=== PATIENT | female | born 1950 | race Caucasian/White ===

== ENCOUNTER 2023-10-27 06:24 | Inpatient (IN) | payer MEDICARE, SELFPAY ==
--- NOTE | 2023-07-05 09:56 | CM ---
Addendum entered by Mely Nunez 09/22/23 12:30:
Surgery date has again changed. New surgery date is 10/27/23. Spoke with patient via telephone. Reintroduced role of Orthopedic Navigator and confirmed information previously obtained for case management assessment. Also discussed orthopedic program
and post surgical plans. Reviewed anticipated length of stay and that goal is for her to return home at discharge. Also reviewed outpatient PT. Patient is in agreement with tentative plan and will go directly to outpatient PT at [facility]. She
states that her will be home with her and can assist her if needed.
Addendum entered by Mely Nunez 09/07/23 06:24:
Surgery date has now been changed to 09/22/23.
Addendum entered by Mely Nunez 08/12/23 11:49:
Patient's surgery date has been changed to 09/08/23.
Original Note:
Patient is scheduled for an elective L TKR on 08/04/23. Spoke with patient prior to surgery via telephone. Introduced role of Orthopedic Navigator. Patient reports that she lives with her in a two story home. There are no steps to enter and
a flight of steps to the second floor. There is a powder room on the entry level installation technician. She currently functions independently. She has an old cane. She has had VN services. PCP is Dr. Eliel Nixon.
Discussed orthopedic program and post surgical plans. Reviewed anticipated length of stay and that goal is for her to return home at discharge. Also reviewed outpatient PT. Patient is in agreement with tentative plan and will go directly to
outpatient PT at [facility]. She will have support from her when she goes home.
Patient will complete online education.
Plan: Orthopedic Navigator will remain available to assist with the care of patient and will reassess discharge needs after surgery.
[2023-07-14 10:52] VITALS: BMI 37.0
[2023-07-14 10:54] LABS: Hematocrit 41.9 % (37.0-47.0); Hemoglobin 12.6 g/dL (12.0-16.0); Mean Corp Hgb Conc. 30.1 g/dL (33.0-37.0); Mean Corpuscular Volume 76.6 fL (81.0-99.0); Platelet Count 266 10^3/uL (130-400); Red Blood Cell Count 5.47 10^6/uL (4.20-5.40); Red Cell Dist. Width 15.6 % (11.5-14.5); White Blood Cell Count 7.4 10^3/uL (4.8-10.8)
[2023-07-14 11:05] LABS: ALT (SGPT) 16 U/L (0-35); AST (SGOT) 20 U/L (14-36); Albumin 4.4 g/dl (3.5-5.0); Alkaline Phosphatase 67 U/L (38-126); Blood Urea Nitrogen 21 mg/dl (7-17); Calcium 9.4 mg/dl (8.4-10.2); Carbon Dioxide 26 mmol/L (22-30); Chloride 106 mmol/L (98-107); Estimated Creatinine Clearance 74 ml/min; Glomerular Filtration Rate > 60.0; Glucose 209 mg/dl (70-99); Potassium 4.2 mmol/L (3.5-5.1); Sodium 143 mmol/L (135-145); Total Bilirubin 0.6 mg/dl (0.2-1.3); Total Protein 7.4 g/dl (6.3-8.2)
[2023-07-14 12:35] LABS: Glycohemoglobin (HgbA1c) 8.1 % (4.0-5.6)
[2023-07-14 14:30] VITALS: BMI 37.0
[2023-08-18 10:24] VITALS: BMI 36.4
[2023-08-18 10:50] LABS: Hematocrit 43.7 % (37.0-47.0); Hemoglobin 13.3 g/dL (12.0-16.0); Mean Corp Hgb Conc. 30.4 g/dL (33.0-37.0); Mean Corpuscular Hgb 23.1 pg (27.0-31.0); Mean Platelet Volume 11.8 fL (7.4-10.4); Platelet Count 252 10^3/uL (130-400); Red Blood Cell Count 5.75 10^6/uL (4.20-5.40); Red Cell Dist. Width 15.5 % (11.5-14.5); White Blood Cell Count 6.9 10^3/uL (4.8-10.8)
[2023-08-18 11:01] LABS: ALT (SGPT) 19 U/L (0-35); AST (SGOT) 20 U/L (14-36); Albumin 4.5 g/dl (3.5-5.0); Alkaline Phosphatase 67 U/L (38-126); Blood Urea Nitrogen 15 mg/dl (7-17); Calcium 9.5 mg/dl (8.4-10.2); Carbon Dioxide 25 mmol/L (22-30); Chloride 101 mmol/L (98-107); Estimated Creatinine Clearance 83 ml/min; Glucose 117 mg/dl (70-99); Potassium 4.5 mmol/L (3.5-5.1); Sodium 135 mmol/L (135-145); Total Bilirubin 1.1 mg/dl (0.2-1.3); Total Protein 7.4 g/dl (6.3-8.2); eGFR > 60.00
--- NOTE | 2023-08-18 11:44 | HPS.HSE ---
Family Physician
-
Family Physician: Eliel Nixon MD
Chief Complaint
-
Advanced primary osteoarthritis of the left knee.
History of Present Illness
73 yo female presenting today for advanced primary osteoarthritis of the left
knee. The patient reports significant left knee pain secondary to this
diagnosis. She notes that her current left knee pain is greatly interfering
with her activities of daily living and is overall impacting her quality of
life. She has tried and failed multiple conservative treatment measures
in the past for her left knee pain. These conservative treatment
measures include self therapeutic exercises, activity modification,
attempted weight loss, medical management with Tylenol, injection
therapy, bracing, and the application of ice and/or heat. Recent x-ray
findings of the left knee demonstrated advanced patellofemoral
osteoarthritis that is essentially bone on bone. She was determined to
be in need of a left total knee arthroplasty. She denies any current
complaints today such as chest pain, shortness of breath, palpitations,
nausea, vomiting, diarrhea, lightheadedness, dizziness, cough, sore
throat, or fever.
�
Medical History
Past Medical History
Past Medical History: Reports Other (see below)
Additional Past Medical History:
1. Osteoarthritis.
2. Hypertension.
3. Hyperlipidemia.
4. Aortic stenosis, status post TAVR 03/2023.
5. Obstructive sleep apnea, noncompliant with CPAP and improving
� � with recent weight loss.
6. Non insulin-dependent diabetes with neuropathy.
7. CAD, mild-moderate RCA and diagonal stenosis on cath 2022, non obstructive.
8. 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
9. Thalassemia minor.
10. Chronic constipation.
11. Migraines.
12. Overactive bladder.
13. Urinary incontinence.
14. Obesity, BMI 37.0.
�
Past Surgical History: Reports Other (see below)
Additional Past Surgical History:
1. TAVR.
2. Right bunionectomy.
3. D&C x2.
4. Uterine artery embolization.
5. Rhinoplasty.
6. Recurrent right detached retina repairs.
7. Bilateral cataract extraction.
8. Colonoscopy.
Social History
Tobacco: Non-smoker
Alcohol: Occasional
Family History
Family History: Not pertinent
Allergies / Home Medications
Allergies reflects when Allergies were last updated in gumi.
Home Medications with original date entered in gumi
Allergy/Medication List:
MEDICATIONS:
1. Acetaminophen 1000 mg p.o. every 8 hours as needed.
2. Ascorbic Acid 1000 mg p.o. daily.
3. Aspirin 81 mg p.o. daily.
4. Atorvastatin 10 mg p.o. every evening.
5. Jardiance 25 mg p.o. daily.
6. Glipizide 5 mg p.o. daily.
7. Losartan 25 mg p.o. daily.
8. Metoprolol Tartrate 50 mg p.o. twice a day.
9. Xarelto 20 mg p.o. every evening.
10. Ozempic 1 mg subcu on Wednesdays.
�
ALLERGIES:� No known allergies.
�
.
Review of Systems
-
A 12 point ROS was completed and negative except as noted: Yes
Constitutional: Reports No Symptoms
Physical Exam
Physical Exam
General: Well Developed and Well Nourished
HEENT: NormoCephalic and Anicteric
Respiratory: Clear
Cardiac: S1/S2 and Regular Rhythm
GI: Soft, Non Tender and Normal Bowel Sounds
Musculoskeletal: Other (Left knee has varus alignment. Positive warmth. Positive effusion. Positive crepitus. Range of motion 0-120. Right knee has neutral alignment but also warmth, crepitus, and range of motion of 0-120. )
Neuro: Awake, Alert, AO x 3, Cranial Nerves Intact and DTR's Intact & Symmetrical
Laboratory Results
-
08/18/23 10:06
08/18/23 10:06
Laboratory Results
Total Bilirubin 1.1 mg/dl (0.2-1.3) 08/18/23 10:06
AST 20 U/L (14-36) 08/18/23 10:06
ALT 19 U/L (0-35) 08/18/23 10:06
Alkaline Phosphatase 67 U/L (38-126) 08/18/23 10:06
Impression/Plan
-
CLEARANCES:
1. Cardiology, Dr. Eliel Nixon - cleared.
2. Primary Medical and dental - waived.
�
IMPRESSION/PLAN:
1. Advanced primary osteoarthritis of the left knee in need of a
� � left total knee arthroplasty by Dr. Omer Forte on
� � 08/04/2023. The benefits and risks of the procedure have been
� � explained to the patient. The patient understands these risks
� � and wishes to proceed.
2. DVT prophylaxis: Xarelto at modified dosing with bilateral
� � venous compression devices.
� � We will resume her home dosing of Xarelto on post-operative day 3
� � as long as she remains hemodynamically stable. Plasma flow
� � devices were highly encouraged to be used in the outpatient
� � setting upon discharge.
3. Chronic constipation: We will add nightly Milk of Magnesia to a
� � bowel regimen of Colace and Senokot post-surgery.
4. Elevated BMI and hro-tdbnyql-lwnqviqna diabetes: Due to these
� � diagnoses, the patient is considered to be at an increased risk
� � of post-operative infection. Upon discharge we will prescribe
� � Cefadroxil 500 mg p.o. twice a day for one week post-surgery.
� � Probiotic use we highly encourage while on this antibiotic.
[2023-08-18 12:31] LABS: Glycohemoglobin (HgbA1c) 7.5 % (4.0-5.6)
[2023-08-18 14:36] VITALS: BMI 36.4
[2023-10-07 09:26] VITALS: BMI 36.9
--- NOTE | 2023-10-07 10:36 | HPS.HSE ---
Family Physician
-
Family Physician: Eliel Nixon MD
Chief Complaint
-
Advanced primary osteoarthritis of the left knee.
History of Present Illness
The patient is a 73-year-old female presenting today for advanced primary osteoarthritis of the left knee. The patient reports significant left knee pain secondary to this diagnosis. She notes that her current left knee pain is greatly
interfering with her activities of daily living and is overall impacting her quality of life. She has tried and failed multiple conservative treatment measures in the past for her left knee pain. These conservative treatment measures include self
therapeutic exercises, activity modification, attempted weight loss, medical management with Tylenol, injection therapy, bracing, and the application of ice and/or heat. Recent x-ray findings of the left knee demonstrated advanced patellofemoral
osteoarthritis that is essentially bone on bone. She was determined to be in need of a left total knee arthroplasty. She denies any current complaints today such as chest pain, shortness of breath, palpitations, nausea, vomiting, diarrhea,
lightheadedness, dizziness, cough, sore throat, or fever.
Medical History
Past Medical History
Past Medical History: Reports Other
Additional Past Medical History:
1. Osteoarthritis.
2. Hypertension.
3. Hyperlipidemia.
4. Non-obstructive coronary artery disease of RCA and diagonal on cardiac cath 2022.
5. Paroxysmal atrial fibrillation, pharmacological therapy with Metoprolol, oral anticoagulation with Xarelto.
6. Left bundle branch block.
7. Severe aortic stenosis, status post TAVR 03/2023.
8. Moderate mitral stenosis.
9. Obstructive sleep apnea, noncompliant with CPAP but improving with recent weight loss.
10. Non insulin-dependent diabetes with neuropathy, A1c 7.4.
11. Migraines.
12. 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
13.�Thalassemia minor.
14. Overactive bladder.
15. Urinary incontinence.
16. Recent tinea pedis and bilateral foot MSSA, resolved with treatment per Dermatology.
17. Obesity, BMI 36.9.
18. Remote history of infrequent tobacco abuse.
Past Surgical History: Reports Other
Additional Past Surgical History:
1. TAVR.
2. Cardiac catheterization.
3. Right bunionectomy.
4. D&C x2.
5. Uterine artery embolization.
6. Rhinoplasty.
7. Recurrent right detached retina repairs.
8. Bilateral cataract extraction.
9. Colonoscopy.
Social History
Tobacco: Former Smoker (She reports 'social' cigarette smoking over 30 years ago. )
Alcohol: Other (Rare. )
Personal:
Living: Other (She lives with her in 2 halfway, 6,000 square foot home. )
Family History
Family History: Not pertinent
Allergies / Home Medications
Allergy/Medication List:
Home medications:
1. Aspirin 81 mg p.o. daily.
2. Jardiance 25 mg p.o. daily.
3. Glipizide 10 mg p.o. daily.
4. Losartan 25 mg p.o. daily.
5. Metoprolol Tartrate 50 mg p.o. twice a day.
6. Xarelto 20 mg p.o. every evening.
7. Ozempic 1 mg subcu on Wednesdays.
8. Ketoconazole 2% cream 1 application topical to bilateral feet nightly.
�
Allergies: No known allergies.
Review of Systems
-
A 12 point ROS was completed and negative except as noted: Yes
Physical Exam
Vital Signs
Blood pressure 117/87. Heart rate 66. Respirations 18. Pulse ox 96% on room air.
Height 5 feet, 6 inches. Weight 103.6 kg. BMI 36.9.
Physical Exam
General: Well Developed, Well Nourished and No Apparent Distress
HEENT: NormoCephalic, Moist mucous membranes, Atraumatic and Other (Chronic right eye visual loss. )
Respiratory: Clear
Cardiac: S1/S2 and Regular Rhythm
GI: Soft, Non Tender, Non Distended and Other (Obese. )
Musculoskeletal: Other (Left knee has varus alignment. Positive warmth. Positive effusion. Positive crepitus. Range of motion 0-120. Right knee has neutral alignment but also warmth, crepitus, and range of motion of 0-120. Bilateral foot tinea pedis
improving with treatment. )
Skin: Warm and Dry
Neuro: AO x 3 and Cranial Nerves Intact
Laboratory Results
-
Laboratory Results
Total Bilirubin 1.1 mg/dl (0.2-1.3) 08/18/23 10:06
AST 20 U/L (14-36) 08/18/23 10:06
ALT 19 U/L (0-35) 08/18/23 10:06
Alkaline Phosphatase 67 U/L (38-126) 08/18/23 10:06
DIAGNOSTIC STUDIES as of 10/07/2023: White blood cell count 6.2 Hemoglobin 12.7. Platelet count 263,000. Sodium 139. Potassium 4.4. BUN 21. Creatinine 0.6. Glucose 155. Hemoglobin A1c 7.4. Calcium 9.6. AST 20. ALT 22. Albumin 4.1. MRSA nasal
screen negative.
EKG 08/18/2023: Normal sinus rhythm. Possible left atrial enlargement. Minimal voltage criteria for LVH, may be normal variant. Inferior infarct, cited on or before 07/14/2023. Prolonged QT. QT interval <500. Compared to the prior EKG of 07/14/2023,
there is no significant change.
Impression/Plan
-
CLEARANCES:
1. Cardiology, Dr. Eliel Nixon - cleared.
2. Endocrinology, Dr. Torie Shah - cleared.
3. Dermatology, DOLORES Sosa - cleared
4. Primary medical and dental - waived.
IMPRESSION/PLAN:
1. Advanced primary osteoarthritis of the left knee in need of a left total knee arthroplasty by Dr. Omer Forte on 10/27/2023. The benefits and risks of the procedure have been explained to the patient. The patient understands these risks and
wishes to proceed.
2. DVT prophylaxis: Xarelto at modified dosing with bilateral venous compression devices. She is aware to hold her Xarelto 3 nights prior to her upcoming procedure. We will resume her home dosing of Xarelto on post-operative day 3 as long as she
remains hemodynamically stable. Plasma flow devices were highly encouraged to be used in the outpatient setting upon discharge.
3. Paroxysmal atrial fibrillation: The patient will be monitored on telemetry post-surgery. She will continue her home Metoprolol without interruption.
4. Elevated BMI and zeu-mjnawja-yeavzunxd diabetes: Due to these diagnoses, the patient is considered to be at an increased risk of post-operative infection. Upon discharge we will prescribe Cefadroxil 500 mg p.o. twice a day for one week
post-surgery. Probiotic use we highly encourage while on this antibiotic.
Patient's phone number: [phone].
Patient's contact (Brown Hudson - Spouse): [phone].
[2023-10-07 10:43] LABS: Hematocrit 41.4 % (37.0-47.0); Hemoglobin 12.7 g/dL (12.0-16.0); Mean Corp Hgb Conc. 30.7 g/dL (33.0-37.0); Mean Corpuscular Hgb 23.3 pg (27.0-31.0); Mean Corpuscular Volume 76.1 fL (81.0-99.0); Mean Platelet Volume 11.3 fL (7.4-10.4); Platelet Count 263 10^3/uL (130-400); Red Blood Cell Count 5.44 10^6/uL (4.20-5.40); Red Cell Dist. Width 15.6 % (11.5-14.5); White Blood Cell Count 6.2 10^3/uL (4.8-10.8)
[2023-10-07 10:59] LABS: ALT (SGPT) 22 U/L (0-35); AST (SGOT) 20 U/L (14-36); Albumin 4.1 g/dl (3.5-5.0); Alkaline Phosphatase 55 U/L (38-126); Blood Urea Nitrogen 21 mg/dl (7-17); Calcium 9.6 mg/dl (8.4-10.2); Carbon Dioxide 28 mmol/L (22-30); Chloride 100 mmol/L (98-107); Estimated Creatinine Clearance 99 ml/min; Glucose 155 mg/dl (70-99); Potassium 4.4 mmol/L (3.5-5.1); Sodium 139 mmol/L (135-145); Total Bilirubin 0.8 mg/dl (0.2-1.3); Total Protein 7.1 g/dl (6.3-8.2); eGFR > 60.00
[2023-10-07 12:13] LABS: Glycohemoglobin (HgbA1c) 7.4 % (4.0-5.6)
[2023-10-07 16:51] VITALS: BMI 36.9
[2023-10-27] VITALS (10 sets, daily range): BP systolic 93–148; BP diastolic 52–77; PULSE 66; O2SAT 90; BMI 36.9
[2023-10-27 08:08] LABS: Glucose - Point of Care 133 mg/dl (70-99)
[2023-10-27] MEDS: CELEBREX 200 MG PO (08:28)
[2023-10-27] MEDS: TYLENOL 650 MG PO ×4 (08:28→23:43)
[2023-10-27] MEDS: NORMOSOL-R 1000 IV ×2 (08:45→12:02)
[2023-10-27 11:33] LABS: Glucose - Point of Care 117 mg/dl (70-99)
[2023-10-27] MEDS: NOVOLOG FLEXPEN-MODERATE RESISTANCE SC (12:52)
--- NOTE | 2023-10-27 13:24 | W.PN.ORTHO ---
Today's Communication / Plan
-
D/c when clinically stable.
Assessment
.
Distal Motor Intact: Yes
Dressing:
Clean, dry and intact.
Assessment:
L knee OA s/p L TKA w/ Dr Forte 10/27/23
DVT prophylaxis - Xarelto at modified dosing, b/l venous foot pumps
- Xarelto home dose to be resumed on POD 3 if remaining hemodynamically stable
HTN - + parameters - monitor BP
Non-obstructive coronary artery disease of RCA and diagonal on cardiac cath 2022
Paroxysmal atrial fibrillation, pharmacological therapy with Metoprolol, oral anticoagulation with Xarelto
Left bundle branch block
- Monitor on tele
- Continue BB and baby ASA
- Xarelto resumed as stated above
ERICKA, noncompliant with CPAP but improving with recent weight loss - monitor O2
- IS
- Add supplemental O2 HS
Non insulin-dependent diabetes with neuropathy, A1c 7.4 - monitor BS
- Resume home meds
- +SSI
- Diabetic, carb controlled diet
- Will Rx Cefadroxil upon d/c for infection prevention
Hyperlipidemia
Severe aortic stenosis, status post TAVR 03/2023
Moderate mitral stenosis
Migraines
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
Thalassemia minor
Overactive bladder
Urinary incontinence
Recent tinea pedis and bilateral foot MSSA, resolved with treatment per Dermatology
Obesity, BMI 36.9
Remote history of infrequent tobacco abuse
Plan
.
Surgery / Date: L TKA w/ Dr Forte 10/27/23
DVT Prophylaxis: Other (Xarelto at modified dose )
Activity:
Out of bed.
PT/OT
Discharge Plan: Home w/ Outpatient PT
Subjective
.
.:
Patient resting comfortably in bed.
L knee pain minimal and well tolerated.
Denies any new significant complaints.
Eager for therapy today.
Vital Signs and Labs
.
Vital Signs and Labs:
Lab Results
10/07/23 09:16
10/07/23 09:16
Physical Exam
-
HEENT: No pallor, cyanosis, or jaundice. Throat clear.
NECK: Supple. No JVD.
RESPIRATORY: Lungs clear to auscultation.
CVS: S1, S2 normal. RRR.
ABDOMEN: Soft, non-tender. No distension. Obese.
EXTREMITIES: Strength equal, no calf pain with palpation/dorsiflexion. Calves soft.
WAREHOUSE SUPERVISOR 3RD SHIFT: AOx3. No focal deficits. first leveler grossly intact
[2023-10-27] MEDS: LOPRESSOR 50 MG PO ×2 (14:22→19:38)
[2023-10-27] MEDS: ASPIR LOW (ENTERIC COATED) 81 MG PO (14:22)
[2023-10-27] MEDS: COZAAR 25 MG PO (14:22)
[2023-10-27] MEDS: GLUCOTROL XL (EXTENDED RELEASE) 10 MG PO (14:22)
[2023-10-27] MEDS: JARDIANCE 25 MG PO (14:23)
[2023-10-27] MEDS: ROXICODONE 5 MG PO (14:26)
[2023-10-27 16:57] LABS: Glucose - Point of Care 190 mg/dl (70-99)
[2023-10-27] MEDS: ANCEF 5 IV (17:32)
[2023-10-27] MEDS: XARELTO 10 MG PO (17:32)
[2023-10-27] MEDS: NEURONTIN 200 MG PO ×2 (17:33→23:43)
[2023-10-27] MEDS: NOVOLOG FLEXPEN-MODERATE RESISTANCE 1 UNITS SC (18:29)
[2023-10-27] MEDS: COLACE 100 MG PO (19:38)
[2023-10-27] MEDS: BACTROBAN 2% OINTMENT 1 APPLIC NASAL (19:38)
[2023-10-27] MEDS: SENOKOT 17.1999999999999993 MG PO (19:38)
[2023-10-27] MEDS: COMPAZINE 5 MG PO (21:45)
[2023-10-27 21:48] LABS: Glucose - Point of Care 219 mg/dl (70-99)
[2023-10-27] MEDS: NIZORAL 2% CREAM 1 APPLIC TOPICAL (23:43)
[2023-10-28] VITALS (8 sets, daily range): BP systolic 114–152; BP diastolic 59–67; PULSE 72–75; O2SAT 88–95
[2023-10-28] MEDS: ANCEF 5 IV (00:53)
[2023-10-28] MEDS: TYLENOL 650 MG PO ×4 (03:34→20:04)
[2023-10-28] MEDS: COMPAZINE 5 MG IV (03:36)
[2023-10-28 07:14] LABS: Glucose - Point of Care 173 mg/dl (70-99)
--- NOTE | 2023-10-28 08:39 | CM ---
Reviewed chart and held rounds with PT, OT and nursing. Patient admitted as planned for elective L TKR. Met with patient at bedside. Confirmed information previously obtained for assessment. Also discussed discharge plans. The plan is for patient to
return home at discharge. She will have support from her when she goes home. Patient will go directly to outpatient PT and will go [facility]. She has an appointment scheduled for Wednesday, 10/29.
Patient has a rolling walker and cane.
She will use [facility] pharmacy for discharge prescriptions.
[2023-10-28] MEDS: NOVOLOG FLEXPEN-MODERATE RESISTANCE 1 UNITS SC (09:01)
[2023-10-28] MEDS: ROXICODONE 5 MG PO (09:03)
[2023-10-28] MEDS: GLUCOTROL XL (EXTENDED RELEASE) 10 MG PO (09:05)
[2023-10-28] MEDS: NEURONTIN 200 MG PO ×3 (09:05→20:04)
[2023-10-28] MEDS: ASPIR LOW (ENTERIC COATED) 81 MG PO (09:05)
[2023-10-28] MEDS: COZAAR PO (09:06)
[2023-10-28] MEDS: COLACE 100 MG PO ×2 (09:06→20:04)
[2023-10-28] MEDS: JARDIANCE 25 MG PO (09:06)
[2023-10-28] MEDS: SENOKOT 17.1999999999999993 MG PO ×2 (09:07→20:04)
[2023-10-28] MEDS: LOPRESSOR 50 MG PO ×2 (09:07→20:05)
[2023-10-28] MEDS: BACTROBAN 2% OINTMENT 1 APPLIC NASAL ×2 (09:11→20:09)
[2023-10-28 11:37] LABS: Glucose - Point of Care 205 mg/dl (70-99)
--- NOTE | 2023-10-28 11:59 | W.PN.ORTHO ---
Today's Communication / Plan
-
Monitor oxygen. Wean supplemental O2 as tolerated.
Await further OT/PT recs.
D/c possible for later today if oxygen improves.
Assessment
.
Distal Motor Intact: Yes
Dressing:
Clean, dry and intact.
Assessment:
L knee OA s/p L TKA w/ Dr Forte 10/27/23
DVT prophylaxis - Xarelto at modified dosing, b/l venous foot pumps
- Xarelto home dose to be resumed on POD 3 if remaining hemodynamically stable
Post-op hypoxemia - likely multifactorial 2* anesthesia, previous deconditioning, obesity, and untreated ERICKA
- Denies SOB/CP. Lungs CTA and all other VSS
- Continuous pulse ox for monitoring
- Continue to use IS -> will advise using it prior to assessing pulse ox
- Wean O2 as tolerated during daytime; will continue supplemental O2 HS d/t ERICKA
- Minimize opioids as able
- Consider CXR
HTN - + parameters - monitor BP
Non-obstructive coronary artery disease of RCA and diagonal on cardiac cath 2022
Paroxysmal atrial fibrillation, pharmacological therapy with Metoprolol, oral anticoagulation with Xarelto
Left bundle branch block
- Monitor on tele
- Continue BB and baby ASA
- Xarelto resumed as stated above
ERICKA, noncompliant with CPAP but improving with recent weight loss - continue to monitor O2
- Continue IS, supplemental O2 HS
Non insulin-dependent diabetes with neuropathy, A1c 7.4 - monitor BS
- Resumed home meds
- +SSI
- Diabetic, carb controlled diet
- Will Rx Cefadroxil upon d/c for infection prevention
Hyperlipidemia
Severe aortic stenosis, status post TAVR 03/2023
Moderate mitral stenosis
Migraines
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
Thalassemia minor
Overactive bladder
Urinary incontinence
Recent tinea pedis and bilateral foot MSSA, resolved with treatment per Dermatology
Obesity, BMI 36.9
Remote history of infrequent tobacco abuse
Plan
.
Surgery / Date: L TKA w/ Dr Forte 10/27/23
DVT Prophylaxis: Other (Xarelto at modified dosing )
Activity:
Out of bed.
PT/OT
Discharge Plan: Home w/ Outpatient PT
Subjective
.
.:
Patient resting comfortably in bed this AM.
Nausea overnight - improved w/ Compazine.
Post-op hypoxemia, likely multifactorial.
L knee pain overall well controlled w/ current pain meds.
Eager for possible d/c later today.
Vital Signs and Labs
.
Vital Signs and Labs:
Lab Results
10/07/23 09:16
10/07/23 09:16
Temp Pulse Resp BP Pulse Ox
98.8 F 74 18 152/67 94
10/28/23 11:05 10/28/23 11:05 10/28/23 11:05 10/28/23 11:05 10/28/23 11:05
Physical Exam
-
HEENT: No pallor, cyanosis, or jaundice. Throat clear.
NECK: Supple. No JVD.
RESPIRATORY: Lungs clear to auscultation.
CVS: S1, S2 normal. RRR.�
ABDOMEN: Soft, non-tender. No distension. Obese.
EXTREMITIES: Expected post-surgical L knee edema. Strength equal, no calf pain with palpation/dorsiflexion. Calves soft.
AGGREGATE CONVEYOR OPERATOR: AOx3. No focal deficits. vacuum cleaner repair person grossly intact
[2023-10-28] MEDS: NOVOLOG FLEXPEN-MODERATE RESISTANCE 3 UNITS SC ×2 (12:48→17:48)
[2023-10-28] MEDS: MAALOX 30 ML PO (12:51)
[2023-10-28] MEDS: TYLENOL PO (13:48)
--- NOTE | 2023-10-28 14:51 | W.PN.UPDATE ---
Update Note
Progress Note Update
73yo with hx TAVR, [id number] CHF - pulmonary edema noted on CXR--check BNP and add IV Lasix--hold Losartan
[2023-10-28 15:29] LABS: NT-proBNP 1630 pg/ml
[2023-10-28] MEDS: LASIX 40 MG IV (15:36)
[2023-10-28] MEDS: LIDOCAINE 4% PATCH 2 PATCH TOPICAL (15:37)
[2023-10-28] MEDS: COMPAZINE 5 MG PO ×2 (16:23→20:05)
[2023-10-28] MEDS: XARELTO 10 MG PO (16:23)
[2023-10-28 17:09] LABS: Glucose - Point of Care 226 mg/dl (70-99)
[2023-10-28] MEDS: NOVOLOG FLEXPEN 2 UNITS SC (17:42)
[2023-10-28] MEDS: NIZORAL 2% CREAM 1 APPLIC TOPICAL (20:06)
[2023-10-28 21:40] LABS: Glucose - Point of Care 161 mg/dl (70-99)
[2023-10-29] MEDS: TYLENOL PO ×4 (00:15→12:43)
[2023-10-29 03:10] VITALS: BP 136/73
[2023-10-29 07:17] LABS: Glucose - Point of Care 183 mg/dl (70-99)
[2023-10-29 07:41] VITALS: BP 149/64
[2023-10-29] MEDS: COZAAR PO (08:05)
[2023-10-29] MEDS: GLUCOTROL XL (EXTENDED RELEASE) 10 MG PO (08:12)
[2023-10-29] MEDS: ASPIR LOW (ENTERIC COATED) 81 MG PO (08:13)
[2023-10-29] MEDS: COMPAZINE 5 MG PO (08:13)
[2023-10-29] MEDS: NEURONTIN 200 MG PO (08:13)
[2023-10-29] MEDS: LASIX 20 MG IV (08:13)
[2023-10-29] MEDS: TYLENOL 650 MG PO (08:13)
[2023-10-29] MEDS: SENOKOT 17.1999999999999993 MG PO (08:13)
[2023-10-29] MEDS: LIDOCAINE 4% PATCH 2 PATCH TOPICAL (08:14)
[2023-10-29] MEDS: COLACE 100 MG PO (08:14)
[2023-10-29] MEDS: JARDIANCE 25 MG PO (08:14)
[2023-10-29] MEDS: LOPRESSOR 50 MG PO (08:14)
[2023-10-29] MEDS: NOVOLOG FLEXPEN-MODERATE RESISTANCE 1 UNITS SC (08:15)
[2023-10-29] MEDS: NOVOLOG FLEXPEN 2 UNITS SC (08:16)
--- NOTE | 2023-10-29 08:26 | CM ---
Addendum entered by Mely Nunez 10/29/23 09:57:
[facility] is able to accept referral. floor clerk to fax discharge instructions to [facility] when complete.
Met with patient and her at bedside. Reviewed VN services with . Neither have concerns about discharge.
Addendum entered by Mely Nunez 10/29/23 09:16:
Patient would like a commode for home use. Script obtained and commode to be issued.
Original Note:
Reviewed chart and held rounds with PT, OT and nursing. Met with patient at bedside. Discussed progress in therapy and discharge plans. The plan continues to be for patient to return home at discharge. Her will be able to assist her if
needed. Discussed outpatient PT vs VN services. Patient will likely benefit from VN services; she is in agreement. Reviewed start of care (tentatively 10/30), services to be ordered (PT, SN) and frequency/duration of services. Options list provided
and PAC data reviewed. Patient selects VN.
Patient has a rolling walker, shower seat and a cane at home.
VN referral was completed and sent to [facility] through [facility] with request for start of care on 10/30.
Patient will use [facility] pharmacy for discharge prescriptions
[2023-10-29] MEDS: MILK OF MAGNESIA 30 ML PO (08:27)
--- NOTE | 2023-10-29 08:37 | W.PN.ORTHO ---
Today's Communication / Plan
-
Await PT and OT recs.
Continue monitoring SpO2.
D/c later today if remaining clinically stable.
Assessment
.
Distal Motor Intact: Yes
Dressing:
Clean, dry and intact.
Assessment:
L knee OA s/p L TKA w/ Dr Forte 10/27/23
DVT prophylaxis - Xarelto at modified dosing, b/l venous foot pumps
- Xarelto home dose to be resumed on POD 3 if remaining hemodynamically stable
Post-op hypoxemia - likely multifactorial 2* anesthesia, previous deconditioning, obesity, untreated ERICKA, and mild pulmonary edema on CXR 10/28
- Denies SOB/CP. Lungs CTA and all other VSS
- Continuous pulse ox for monitoring
- Continue to use IS -> will advise using it prior to assessing pulse ox
- Supplemental O2 weaned 10/28 AM
- Tramadol over Oxycodone for mod-severe pain as needed
- IV Lasix provided
HTN - + parameters - BPs stable
Non-obstructive coronary artery disease of RCA and diagonal on cardiac cath 2022
Paroxysmal atrial fibrillation, pharmacological therapy with Metoprolol, oral anticoagulation with Xarelto
Left bundle branch block
- Maintaining NSR on tele
- Continue BB and baby ASA
- Xarelto resumed as stated above
ERICKA, noncompliant with CPAP but improving with recent weight loss - continue to monitor O2
- Continue IS, supplemental O2 HS
Non insulin-dependent diabetes with neuropathy, A1c 7.4 - BS readings improving w/ resumption of home meds, SSI
- Diabetic, carb controlled diet
- Will Rx Cefadroxil upon d/c for infection prevention
Hyperlipidemia
Severe aortic stenosis, status post TAVR 03/2023
Moderate mitral stenosis
Migraines
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
Thalassemia minor
Overactive bladder
Urinary incontinence
Recent tinea pedis and bilateral foot MSSA, resolved with treatment per Dermatology
Obesity, BMI 36.9
Remote history of infrequent tobacco abuse
Plan
.
Surgery / Date: L TKA w/ Dr Forte 10/27/23
DVT Prophylaxis: Other (Xarelto at modified dosing )
Activity:
Out of bed.
PT/OT
Discharge Plan: Home w/ VN
Subjective
.
.:
Patient resting comfortably in her chair this AM.
Mild pulmonary edema on CXR yesterday - Lasix provided.
Supplemental O2 weaned this AM.
Eager for potential d/c today.
Vital Signs and Labs
.
Vital Signs and Labs:
Lab Results
10/07/23 09:16
10/07/23 09:16
Temp Pulse Resp BP Pulse Ox
100.2 F 92 18 105/55 96
10/29/23 07:41 10/29/23 08:05 10/29/23 07:41 10/29/23 08:05 10/29/23 07:41
Non-invasive Hgb result: 12.0
Physical Exam
-
HEENT: No pallor, cyanosis, or jaundice. Throat clear.
NECK: Supple. No JVD.
RESPIRATORY: Lungs clear to auscultation.
CVS: S1, S2 normal. RRR w/ murmur.
ABDOMEN: Soft, non-tender. No distension. Obese.
EXTREMITIES: Mild post-op L knee edema. Strength equal, no calf pain with palpation/dorsiflexion. Calves soft.
BAKERY TEAM MEMBER: AOx3. No focal deficits. ware tester grossly intact
[2023-10-29 09:30] VITALS: BP 145/62; PULSE 81; O2SAT 91
--- NOTE | 2023-10-29 11:42 | W.DS.TRANS ---
DC Summary - Fitter Hand
-
Discharge Instructions:
Discharge Diagnosis/Procedures L knee OA s/p L TKA w/ Dr Forte 10/27/23
Diet Diabetic, Carb Controlled
Activity As tolerated,With Walker
Driving Restrictions Not until seen by your Dr
Bathing Restrictions OK to Shower
Other Services PT,VN
Wound Care Dressing to be removed 1 week post-surgery.
Instructions:
Stand-Alone Forms: Total Hip/Knee Replacement D/C
Changes to Home Medications: Yes
Discharge Medications:
DC Medications w/original date entered in [employer]
Semaglutide [Ozempic] 1 mg SQ WE 01/14/22
empagliflozin 25 mg tablet (Jardiance) 25 mg PO DAILY 01/14/22
glipizide 5 mg tablet, extended release 24 hr 10 mg PO DAILY 01/14/22
aspirin 81 mg tablet,delayed release 81 mg PO DAILY 07/08/23
metoprolol tartrate 50 mg tablet 50 mg PO BID 07/08/23
rivaroxaban 20 mg tablet (Xarelto) 20 mg PO QPM 07/08/23
mupirocin 2 % topical ointment 1 applic intranasal BID #1 tube 10/07/23
ketoconazole 2 % topical cream 1 applic topical HS 10/21/23
Saccharomyces boulardii 250 mg capsule (Florastor) 250 mg PO BID #14 caps 10/28/23
acetaminophen 500 mg tablet (Tylenol Extra Strength) 1,000 mg PO Q6H #60 tabs 10/28/23
cefadroxil 500 mg capsule 500 mg PO BID #14 caps 10/28/23
docusate sodium 100 mg capsule 100 mg PO BID #30 caps 10/28/23
gabapentin 100 mg capsule 200 mg PO TID #30 caps 10/28/23
prochlorperazine maleate 5 mg tablet 5 mg PO TID nausea/vomiting #15 tabs 10/28/23
sennosides 8.6 mg tablet (Senna Lax) 17.2 mg PO BID #30 tabs 10/28/23
lidocaine 4 % topical patch 2 patch topical DAILY #30 ea 10/29/23
losartan 25 mg tablet 25 mg PO DAILY #0 tabs 10/29/23
magnesium hydroxide 400 mg/5 mL oral suspension (Milk of Magnesia) 30 ml PO HS PRN Constipation #355 mL 10/29/23
tramadol 50 mg tablet 50 mg PO Q6H PRN moderate-severe pain #30 tabs 10/29/23
Home Medication Changes
Saccharomyces boulardii 250 mg capsule (Florastor) 250 mg PO BID #14 caps 10/28/23
acetaminophen 500 mg tablet (Tylenol Extra Strength) 1,000 mg PO Q6H #60 tabs 10/28/23
cefadroxil 500 mg capsule 500 mg PO BID #14 caps 10/28/23
docusate sodium 100 mg capsule 100 mg PO BID #30 caps 10/28/23
gabapentin 100 mg capsule 200 mg PO TID #30 caps 10/28/23
prochlorperazine maleate 5 mg tablet 5 mg PO TID nausea/vomiting #15 tabs 10/28/23
sennosides 8.6 mg tablet (Senna Lax) 17.2 mg PO BID #30 tabs 10/28/23
lidocaine 4 % topical patch 2 patch topical DAILY #30 ea 10/29/23
magnesium hydroxide 400 mg/5 mL oral suspension (Milk of Magnesia) 30 ml PO HS PRN Constipation #355 mL 10/29/23
tramadol 50 mg tablet 50 mg PO Q6H PRN moderate-severe pain #30 tabs 10/29/23
Pending Results: No
--- NOTE | 2023-10-29 12:06 | W.PN.UPDATE ---
Update Note
Progress Note Update
Spoke with surgeon re: Xarelto. She is due for just one more dose of Xarelto 10 mg this evening before resuming her home 20 mg tomorrow.
Given her non-invasive hgb was stable and she's had no incisional bleeding, she can just resume her 20 mg this evening.
Patient aware and understands newly updated instructions.
SpO2 has remained stable on RA since this AM.
Pt now medically stable for d/c home today.
--- NOTE | 2023-10-29 13:11 | PN.CDI ---
CDI
- -
CDI:
Physician Documentation Request
Admit Date: 10/27/23 06:24
Dear Doctor Reanna,
Clinical Indicators:
Patient admitted with left knee osteoarthritis; s/p left total knee arthroplasty 10/27.
07/05/23 Cardiac Clearance Report, 'Echocardiogram (April) Estimated EF 60-65%. Grade 1 diastolic dysfunction'
10/28 Update note, 'acute CHF - pulmonary edema noted on CXR'
Please provide further specificity regarding the most likely type of acute CHF you are evaluating, treating or monitoring.
Acute diastolic CHF
Other, please specify
Use of terms such as suspected, likely, concern for, or probable (associated with a specific diagnosis that is being evaluated, monitored, or treated as if it exists) are acceptable and can be coded in the inpatient setting, when documented at the
time of discharge.
Thank you,
SARAH Forbes RN
CDI Specialist
available via tiger text
Please use your independent medical judgment in providing your response.
== END 2023-10-29 13:06 | disposition home health service (06) | DRG 470 ==
LOC: 2 SOUTH 06:24
PROVIDERS: Physician Assistant Medical; ADMITTING PHYSICIAN Orthopaedic Surgery; FAMILY PHYSICIAN Internal Medicine Cardiovascular Disease
PROC: 0SRD069 Replacement of Left Knee Joint with Oxidized Zirconium on Polyethylene Synthetic Substitute, Cemented, Open Approach (ICD-10-PCS; 2023-10-27)
DX: M17.12 Unilateral primary osteoarthritis, left knee (principal); Z87.891 Personal history of nicotine dependence; I48.0 Paroxysmal atrial fibrillation; E66.9 Obesity, unspecified; Z68.36 Body mass index [BMI] 36.0-36.9, adult; I10 Essential (primary) hypertension; G47.33 Obstructive sleep apnea (adult) (pediatric); Z91.199 Patient's noncompliance with other medical treatment and regimen due to unspecified reason; Z79.84 Long term (current) use of oral hypoglycemic drugs; E11.9 Type 2 diabetes mellitus without complications; E78.5 Hyperlipidemia, unspecified; Z68.37 Body mass index [BMI] 37.0-37.9, adult; D56.3 Thalassemia minor; R09.02 Hypoxemia; Z79.01 Long term (current) use of anticoagulants; I50.9 Heart failure, unspecified
CPT/HCPCS: 36415; 71046; 73560; 80053; 82962; 83036; 83880; 85027; 87070; 93005; 97110; 97162; 97166; 97530; 97535; C1713; C1776

== ENCOUNTER → 2025-01-23 09:16 | Outpatient (REF) | payer MEDICARE, SELFPAY | LOC: RCS 09:16 | PROVIDERS: ATTENDING PHYSICIAN Student in an Organized Health Care Education/Training Program | DX: Z95.2 Presence of prosthetic heart valve (principal) | CPT/HCPCS: 93306 ==

== ENCOUNTER → 2025-06-29 09:13 | Outpatient (REF) | payer MEDICARE, SELFPAY | LOC: RAD 09:13 | PROVIDERS: ATTENDING PHYSICIAN Thoracic Surgery (Cardiothoracic Vascular Surgery) | DX: I34.2 Nonrheumatic mitral (valve) stenosis (principal) | CPT/HCPCS: 71275; Q9967 ==

== ENCOUNTER 2025-07-03 06:51 | Day surgery (SDC) | payer MEDICARE, SELFPAY ==
[2025-07-03] VITALS (8 sets, daily range): BP systolic 114–154; BP diastolic 54–119; BMI 35.7
[2025-07-03 08:04] LABS: Glucose - Point of Care 129 mg/dl (70-99)
[2025-07-03] MEDS: LOW STRENGTH ASPIRIN 81 MG PO (10:13)
--- NOTE | 2025-07-03 11:59 | ITS.CL.PN ---
Equal Employment Opportunity Officer - Procedure Note
Procedure
Procedure Note:
CARDIAC CATHETERIZATION REPORT
Date of Procedure: 07/03/2025
Referring: Dr. Ivan Guzman MD
Indication: preoperative evaluation prior to planned surgical mitral valve replacement
PROCEDURE(S)
1. right heart catheterization
2. left heart catheterization
3. coronary angiography
ACCESS
1. 6F right radial artery (closure: radial band)
2. 5F right antecubital vein (closure: manual hemostasis)
CATHETERS
1. 5F [place]
2. 6F JR4
3. 6F JL3.5
MODERATE SEDATION: 25 minutes of moderate sedation was utilized. An independent medical imaging director was present to assist with and help manage the patient's level of consciousness and physiologic status.
HEMODYNAMIC DATA
LV 147/21 (average end-expiratory LVEDP ~25 mmHg)
AO 159/79 (mean 107) mmHg
RA 17 mmHg
RV 70/15 (EDP 19) mmHg
PA 66/29 (mean 43) mmHg
PCWP 33 mmhg (average end-expiratory ~37 mmHg)
SaO2 98.1%
SvO2 66.3%
Hb 11.8 g/dL
CO/CI 5.37/2.45 L/min/m2
SVR 1341 dsc*-5
PVR 1.9 Wood units
CORONARY ANGIOGRAPHY
Dominance: right
LM: normal (Note: the JL3.5 catheter was not selectively engaged in the left main but rather anterior to the left main in the neosinus. The neosinus appears to be covered superiorly, creating a pathway of contrast flow into the left main ostium. If
coronary intervention were required in the future, more posterior positioning of the catheter would be required)
LAD: large vessel giving rise to a few small diagonal branches and a single moderate caliber diagonal branch with a focal 80% stenosis. There is otherwise mild diffuse disease.
LCx: large vessel giving rise to a single large OM branch. There are mild luminal irregularities only.
RCA: large vessel giving rise to a moderate caliber RPDA and large RPL branch. There are mild luminal irregularities only.
RADIATION: dose 578 mGy; DAP 60.4 Gy*cm2; fluoroscopy time 8.1 min
CONCLUSIONS
1. severely elevated biventricular filling pressures, severe predominantly post-capillary pulmonary hypertension, and normal cardiac output
2. large LVEDP-PCWP gradient in keeping with known severe MR
3. no significant aortic valve gradient
4. single branch vessel (diagonal) obstructive CAD in a right dominant system.
RECOMMENDATIONS
1. proceed with surgical mitral valve replacement
2. given lack of anginal symptoms and relatively small size of diagonal branch, would not additionally bypass the diagonal at time of mitral valve surgery
Copy to: Dr. Ivan Guzman MD (CT surgeon)
Signed: Newton Zhong MD, PhD
[2025-07-03 12:23] LABS: Glucose - Point of Care 86 mg/dl (70-99)
== END 2025-07-03 14:54 | disposition home or self-care (01) ==
LOC: CATH 06:51
PROVIDERS: ATTENDING PHYSICIAN Student in an Organized Health Care Education/Training Program
DX: I25.10 Atherosclerotic heart disease of native coronary artery without angina pectoris (principal); I05.2 Rheumatic mitral stenosis with insufficiency; I42.1 Obstructive hypertrophic cardiomyopathy; I27.20 Pulmonary hypertension, unspecified; Z79.899 Other long term (current) drug therapy; Z79.82 Long term (current) use of aspirin; Z79.85 Long-term (current) use of injectable non-insulin antidiabetic drugs
CPT/HCPCS: 99152; 99153; 93312; 93320; 93325; 82962; 93005; 93460; C1769; C1894; Q9967

== ENCOUNTER 2025-07-13 04:55 | Inpatient (IN) | payer MEDICARE, SELFPAY ==
[2025-07-06 08:21] VITALS: BMI 36.9
[2025-07-06 08:57] LABS: Hematocrit 39.2 % (37.0-47.0); Hemoglobin 12.1 g/dL (12.0-16.0); Mean Corp Hgb Conc. 30.9 g/dL (33.0-37.0); Mean Corpuscular Volume 75.1 fL (81.0-99.0); Nucleated Red Blood Cells % 0 %; Platelet Count 247 10^3/uL (130-400); Red Cell Dist. Width 15.5 % (11.5-14.5)
[2025-07-06 09:03] LABS: Urine Character Clear (Clear)
[2025-07-06 09:04] LABS: INR 1.05; PT 14.0 Sec (11.4-14.6)
[2025-07-06 09:17] LABS: ALT (SGPT) 24 U/L (0-35); AST (SGOT) 21 U/L (14-36); Albumin 4.2 g/dl (3.5-5.0); Alkaline Phosphatase 53 U/L (38-126); Blood Urea Nitrogen 18 mg/dl (7-17); Calcium 9.2 mg/dl (8.4-10.2); Carbon Dioxide 27 mmol/L (22-30); Chloride 103 mmol/L (98-107); Estimated Creatinine Clearance 83 ml/min; Glucose 153 mg/dl (70-99); Potassium 4.2 mmol/L (3.5-5.1); Sodium 136 mmol/L (135-145); Total Protein 7.1 g/dl (6.3-8.2); eGFR > 60.00
[2025-07-06 10:33] LABS: Urine Squamous Cell >30 /LPF (Few)
[2025-07-06 10:34] LABS: Urine Red Blood Cell 0-2 /HPF (0-2)
--- NOTE | 2025-07-06 11:00 | CM ---
spoke to pt in PAT's, we discussed preop MVR teaching including sternal and driving restrictions. she is prev indep, liveswith her husb in a 2 story home with no steps to enter. she tells me that she does not use her CPAP. she denies any dme's. she
is agreeable to a f/u visit from the ct trasitional care nurse after dc. plan is for MVR 07/13, cm role explained and all questions answered.
[2025-07-06 11:55] LABS: Glycohemoglobin (HgbA1c) 6.9 % (4.0-5.9)
[2025-07-13] VITALS (13 sets, daily range): BP systolic 81–148; BP diastolic 41–67; BMI 36.4
[2025-07-13] MEDS: LOPRESSOR 25 MG PO (05:45)
[2025-07-13] MEDS: MAGNESIUM OXIDE 400 MG PO (05:45)
[2025-07-13] MEDS: PROTONIX 40 MG PO (05:45)
[2025-07-13] MEDS: BACTROBAN 2% OINTMENT 1 APPLIC NASAL ×2 (05:45→21:01)
--- NOTE | 2025-07-13 06:20 | W.CVOR.SURPR ---
CVOR Surgeon Immed Pre Op
-
I have examined this patient prior to performance of the scheduled procedure.
The patient's condition is unchanged from the time of the dictated/written History and
Physical and the patient is able to undergo the scheduled procedure.
MVR for calcific mitral disease, poss explant of TAVR if damaged, +/- LAAE
[2025-07-13 07:32] LABS: ACT+ - POC 126 Seconds (82-134)
[2025-07-13 07:53] LABS: Urine Character Clear (Clear)
--- NOTE | 2025-07-13 07:54 | CM ---
Reviewed chart. Mrs. Hudson is in the operating room today. Prior to admission she resides with her spouse in a two story home without any steps to enter. Prior to admission she was independent with ambulation and adls. She has a CPAP Machine
at home that she currently is not using. She has a prescription plan. Medical work-up in progress. The discharge plan is to return home with her spouse and a home visit by the Transitional Care Nurse when medically stable.
[2025-07-13 08:28] LABS: ACT+ - POC 535 Seconds (82-134)
[2025-07-13 08:38] LABS: B.E. - POC 0.0 mmol/L; Glucose - POC 177 mg/dl (70-99); HCO3 - POC 26 mmol/L (21-28); Hematocrit - POC 33 % PCV (37-47); Hemodilution- POC No; Hemoglobin Calculated - POC 11.4; Ionized Calcium - POC 1.22 mmol/L (1.15-1.33); Lactate - POC 0.81 mmol/L (0.36-0.75); O2 Saturation %Calculated-POC 98.4 % (94-98); PCO2 - POC 45 mmHg (35-48); PO2 - POC 116 mmHg (83-108); POC Comment PRE; Potassium - POC 4.0 mmol/L (3.5-5.1); Sodium - POC 140 mmol/L (136-145); Specimen Type - POC Arterial; pH - POC 7.36 (7.35-7.45)
[2025-07-13 08:49] LABS: ACT+ - POC 568 Seconds (82-134)
[2025-07-13 09:05] LABS: Urine Red Blood Cell 0-2 /HPF (0-2); Urine White Cell 50-60 /HPF (0-5)
[2025-07-13 09:09] LABS: B.E. - POC 3.9 mmol/L; Glucose - POC 170 mg/dl (70-99); HCO3 - POC 27 mmol/L (21-28); Hematocrit - POC 29 % PCV (37-47); Hemodilution- POC Yes; Hemoglobin Calculated - POC 10.0; Ionized Calcium - POC 1.03 mmol/L (1.15-1.33); Lactate - POC 0.64 mmol/L (0.36-0.75); O2 Saturation %Calculated-POC 99.9 % (94-98); PCO2 - POC 36 mmHg (35-48); PO2 - POC 328 mmHg (83-108); POC Comment CPB; Potassium - POC 4.7 mmol/L (3.5-5.1); Sodium - POC 138 mmol/L (136-145); Specimen Type - POC Arterial; pH - POC 7.49 (7.35-7.45)
[2025-07-13 09:17] LABS: ACT+ - POC 528 Seconds (82-134)
[2025-07-13 09:37] LABS: B.E. - POC 4.7 mmol/L; Glucose - POC 172 mg/dl (70-99); HCO3 - POC 28 mmol/L (21-28); Hematocrit - POC 28 % PCV (37-47); Hemodilution- POC Yes; Hemoglobin Calculated - POC 9.5; Ionized Calcium - POC 1.11 mmol/L (1.15-1.33); Lactate - POC 0.92 mmol/L (0.36-0.75); O2 Saturation %Calculated-POC 99.9 % (94-98); PCO2 - POC 36 mmHg (35-48); PO2 - POC 246 mmHg (83-108); POC Comment CPB; Potassium - POC 3.7 mmol/L (3.5-5.1); Sodium - POC 138 mmol/L (136-145); Specimen Type - POC Arterial; pH - POC 7.51 (7.35-7.45)
[2025-07-13 09:44] LABS: ACT+ - POC 473 Seconds (82-134)
[2025-07-13 09:56] LABS: ACT+ - POC 555 Seconds (82-134)
[2025-07-13 10:08] LABS: B.E. - POC 2.0 mmol/L; Glucose - POC 157 mg/dl (70-99); HCO3 - POC 26 mmol/L (21-28); Hematocrit - POC 32 % PCV (37-47); Hemodilution- POC Yes; Hemoglobin Calculated - POC 10.8; Ionized Calcium - POC 1.12 mmol/L (1.15-1.33); Lactate - POC 1.16 mmol/L (0.36-0.75); O2 Saturation %Calculated-POC 99.9 % (94-98); PCO2 - POC 37 mmHg (35-48); PO2 - POC 258 mmHg (83-108); POC Comment CPB; Potassium - POC 3.5 mmol/L (3.5-5.1); Sodium - POC 140 mmol/L (136-145); Specimen Type - POC Arterial; pH - POC 7.45 (7.35-7.45)
[2025-07-13 10:17] LABS: ACT+ - POC 523 Seconds (82-134)
[2025-07-13 10:28] LABS: ACT+ - POC 495 Seconds (82-134)
[2025-07-13 10:30] LABS: B.E. - POC 2.2 mmol/L; Glucose - POC 122 mg/dl (70-99); HCO3 - POC 27 mmol/L (21-28); Hematocrit - POC 29 % PCV (37-47); Hemodilution- POC Yes; Hemoglobin Calculated - POC 9.8; Ionized Calcium - POC 1.12 mmol/L (1.15-1.33); Lactate - POC 1.63 mmol/L (0.36-0.75); O2 Saturation %Calculated-POC 99.9 % (94-98); PCO2 - POC 43 mmHg (35-48); PO2 - POC 267 mmHg (83-108); POC Comment CPB; Potassium - POC 3.9 mmol/L (3.5-5.1); Sodium - POC 141 mmol/L (136-145); Specimen Type - POC Arterial; pH - POC 7.41 (7.35-7.45)
[2025-07-13 10:41] LABS: ACT+ - POC 617 Seconds (82-134)
[2025-07-13 11:17] LABS: B.E. - POC 3.9 mmol/L; Glucose - POC 107 mg/dl (70-99); HCO3 - POC 29 mmol/L (21-28); Hematocrit - POC 29 % PCV (37-47); Hemodilution- POC Yes; Hemoglobin Calculated - POC 10.0; Ionized Calcium - POC 1.15 mmol/L (1.15-1.33); Lactate - POC 1.87 mmol/L (0.36-0.75); O2 Saturation %Calculated-POC 99.9 % (94-98); PCO2 - POC 44 mmHg (35-48); PO2 - POC 292 mmHg (83-108); POC Comment WARM; Potassium - POC 3.9 mmol/L (3.5-5.1); Sodium - POC 142 mmol/L (136-145); Specimen Type - POC Arterial; pH - POC 7.43 (7.35-7.45)
[2025-07-13 11:20] LABS: ACT+ - POC 129 Seconds (82-134)
[2025-07-13 11:23] LABS: B.E. - POC -0.2 mmol/L; Glucose - POC 119 mg/dl (70-99); HCO3 - POC 25 mmol/L (21-28); Hematocrit - POC 25 % PCV (37-47); Hemodilution- POC Yes; Hemoglobin Calculated - POC 8.5; Ionized Calcium - POC 1.34 mmol/L (1.15-1.33); Lactate - POC 2.27 mmol/L (0.36-0.75); O2 Saturation %Calculated-POC 97.5 % (94-98); PCO2 - POC 45 mmHg (35-48); PO2 - POC 100 mmHg (83-108); POC Comment POST; Potassium - POC 3.6 mmol/L (3.5-5.1); Sodium - POC 140 mmol/L (136-145); Specimen Type - POC Arterial; pH - POC 7.36 (7.35-7.45)
--- NOTE | 2025-07-13 11:40 | W.PN.CT.SURG ---
CT Surgery Operative Note
-
CARDIAC SURGERY OPERATIVE REPORT
Preoperative Diagnosis: Severe mitral valve stenosis, calcific
Postoperative Diagnosis: Same
Procedure(s) Performed:
1. Standard sternotomy the aortic and bicaval cannulation
2. Complete resection of mitral valve leaflets as well as subvalvular apparatus down to level the papillary muscle heads via transseptal approach
3. Placement of 2 x CV 3 Henderson-Som neochords to both the anterior and posterior medial papillary muscle heads for left ventricular support and mitral valve replacement using a 27 mm bioprosthesis
4. Patch repair of annulus using bovine pericardium post extensive ultrasonic debridement of mitral annular calcification (using CUSA)
5. Exploration of aorta to evaluate TAVR valve, debridement of fibrinous veil across the left main cells described on left heart cath
6. Placement of temporary atrial ventricular pacing wires
7. Transesophageal cardiography
Date of Surgery: 07/13/2025
Comorbidities:
1. Severe mitral valve stenosis, secondary to dense mitral annular calcification and calcific disease of the leaflets
2. Previous aortic valve stenosis status post TAVR
3. Hyperlipidemia
4. Hypertension
5. Type 2 diabetes
6. ERICKA on CPAP
7. Morbidly obese BMI greater than 30
8. Severe pulmonary hypertension
Attending Surgeon: Ivan Guzman MD, MS
Assistants: Tiff Cortes PA-C (present and necessary to assistant restaurant general manager, retraction, suction, exposure, suture management, and wound closure under my direction)
Anesthesiology: Kenn Rayo MD and Mariajose Boudreaux CRNA
Scrub and Circulating RNs: Jodi Spence, RHIANNON, Mark Zamarripa RN
Manager Ob: Amira Rocha CCP
Anesthesia: GETA
EBL: per perfusion records
Products: None
CPB Time: 147 minutes
Aortic Cross Clamp Time: 123 minutes
Indication(s) for Procedures: This is a 75-year-old female who has a history of previous aortic valve stenosis status post TAVR in 2022. She recently transition her care to [facility]. Transthoracic echocardiogram demonstrated a very
hyperdynamic left ventricle with an EF of over 70% and an elevated midcavity gradient. It also demonstrated dense mitral annular calcification and severe mitral valve stenosis with a valve area of 1.9 and a mean gradient of 14 on transthoracic
echocardiogram. She was referred to my office for consideration of mitral valve replacement. Given that she had a previous TAVR device in place, she is aware that retraction for the mitral valve portion of the surgery may distort the valve and
result in a double valve replacement.
Mitral Valve Description: Densely calcified from trigone to trigone with infiltration into the left ventricular myocardium. Her leaflets were extremely calcified and immobile. The papillary muscle was also calcified the tips and the cords were
shortened.
Findings: Left-ventricular ejection fraction preoperatively was hyperdynamic at approximately 65 to 70% with underfilled left ventricle. She had under anesthesia a mean gradient of approximately 10 mmHg with severe mitral valve stenosis with poor
leaflet excursion. She also had a reduced cardiac index as well as severe elevation of her pulmonary pressures into the high 60s. She was somewhat hemodynamically unstable requiring vasoactive and inotropic support. Following surgery EF
normalized to 65%. Her mitral valve was replaced after resecting the entire anterior and posterior leaflets as well as the subvalvular apparatus at the level the papillary muscle heads. In order to support her left ventricle to CV 3 Henderson-Som
sutures were then placed to each papillary muscle head and then anchored through the bovine pericardial patch and ultimately through the sewing cuff of the 27 mm bioprosthetic valve. A total of 10 pledgeted 2-0 Ethibond sutures were placed
circumferentially around the valve securing it with core knots. The posterior annulus from P1 all way to the commissure past P3 was reinforced using bovine pericardium after performing significant debridement using ultrasonic device to break up the
calcium to facilitate placement of a 27 mm bioprosthesis. Thorough irrigation was performed and also placement of a Anahi camera inside of the LV in order to make sure that there was no calcified debris at risk for embolization. I also open her
ascending thoracic aorta and surveyed her TAVR valve to ensure that did not crush this inadvertently. The valve appeared to retain a circular shape and given that there was some veil covering the left main os on her cath, this was debrided to help
facilitate future intervention should it be needed. After coming off cardiopulmonary bypass, there was a very trace perivalvular leak that disappeared with protamine. There was no rocking of her bioprosthetic valve and there was no LVOT
obstruction. Her mitral valve prosthesis had normal leaflet excursions. The mean gradient across the mitral valve was 3 mmHg. She was on dobutamine at 5 preemptively and was not requiring significant vasoactive medication. No blood products were
given. Cardiac index was over 2. She was AV pacing at the conclusion of the case. The surgery is done via transseptal approach via the right atrium, there is no residual shunt across her interatrial septum at the inclusion the case.
Specimen(s): Mitral valve leaflets.
Prosthesis:
1. 27 mm Cobb mitris Resilia mitral valve bioprosthesis, serial #[id number]
2. Bovine pericardium, serial number [id number]
3. CV 3 Goretex x 2
Description of Procedure: The patient was taken to the operating room. Their identity and procedure to be performed were verified and they were positioned supine on the operating table. Induction via general anesthesia with endotracheal intubation
was performed and central venous access and arterial monitoring were inserted. A preoperative transesophageal echocardiogram was performed to assess cardiac function and valvular function. The patient was then prepped and draped from chin to feet in
a sterile fashion. A preoperative time-out was performed with all members of the team present. A midline chest incision was performed along with median sternotomy. The innominate vein was isolated. Full heparinization was given (a total of 70
units). We created a pericardial well. The aortic cannulation site was chosen where it was soft, pliable, and free of calcium. Cannulation was performed with an arterial cannula in the ascending aorta, angled metal tip cannular in the superior vena
cava and straight bendable cannula in the inferior vena cava. The arterial cannula line had an appropriate bounce and correlating pressures. Next, a root vent/antegrade cannula was inserted into the ascending aorta. The ACT was confirmed to be over
400 and retrograde autologous priming was performed before commencing cardiopulmonary bypass. The pulmonary artery was away from the aorta to facilitate a clamp site. The oblique sinus was developed and the snares were placed around the
SVC and IVC for future use. The aortic cross-clamp was placed after decreasing the flow on the bypass and mean arterial pressure. A total of 1.2L initial dose of antegrade Del-Nido cardioplegia solution was given and planned for re-dosing every 75
minutes as necessary. There was rapid electro-mechanical arrest of the heart at 300 cc of cardioplegia. The left ventricle was observed for distention on echocardiogram and manual palpation. Cold slush was placed into a lap on the RV and we
systemically cooled to 34 degrees centigrade.
Carbon dioxide was used to flood the field. Snares were tightened across the SVC and IVC and the mitral valve was access via the right atrium after performing a septotomy and enlarging it along the fossa ovalis. Followed by valve analysis. The
mitral valve was replaced as described above. The intra-atrial septum was then reapproximated primarily using 4-0 Prolene with multiple reinforcement sutures across the septum. I then re-dosed cardioplegia antegrade here. At this point I turned my
attention towards the aorta and performed the aortotomy that was approximately 2.5 cm long. I then surveyed the aortic valve and debrided some of the fibrinous veil across the left main. The aortic valve appeared to be undamaged and maintained a
circular shape. The aorta was closed in 2 layers. De-airing maneuvers were performed and temporary bipolar ventricular pacing wires were placed on the base of the right ventricle followed by temporary atrial pacing wires at the SVC atrial
junction. The patient was placed in a Trendelenburg position and flows on bypass were lowered. The aortic cross clamp was removed and flows were slowly brought back up. Under isolation, the right atrium was closed in 2 layers using 5-0 Prolene.
The snares were then removed from the SVC and IVC. Transesophageal echocardiography revealed no evidence of paravalvular leak and ventricular function was normal. The previous TAVR device was also functioning normally. Once de-airing was
satisfactory the root vent was removed. After verifying acceptable parameters, we initiated weaning from cardiopulmonary bypass. Once we were off cardiopulmonary bypass, the venous cannulas was clamped and removed sequentially. A test dose of
protamine was administered and the patient was monitored for any adverse reaction before resuming protamine. Once half of the protamine dose was delivered, pump suckers were turned off and the systolic blood pressure was lowered for aortic
decannulation. The aortic cannula was removed and purse strings were tied down. All cannulation sites were oversewn with a 4-0 prolene. The right atrial and aorta suture line was inspected and hemostasis was confirmed. Mediastinal hemostasis was
obtained. Two #24 Evgeny drains were placed within the pericardium and 2 #19 Evgeny drains into each hemithorax. The sternum was approximated with 2 #7 single and 3 #8 double stainless steel wires. Fascia was approximated with #1 vicryl suture. The
subcutaneous, dermis and epidermis were closed in layers in a running fashion. The skin wound was cleansed and dressed.
All instrument, sponge, and needle counts were confirmed to be correct x 2 at the end of the operation. The patient was transferred to the cardiac intensive care unit in critical but stable condition.
I, Dr. Ivan Guzman, was present, scrubbed for, and performed all critical elements of this procedure.
Ivan Guzman MD, MS
Cardiothoracic Surgeon
[facility]
This dictation was created using the [employer] dictation system. Please excuse any grammatical, typographical, or 'sound alike' errors
[2025-07-13 12:23] LABS: Glucose - Point of Care 96 mg/dl (70-99)
[2025-07-13 12:30] LABS: B.E. 0.2 mmol/L; HCO3 26.4 mmol/L (21-28); Hematocrit 33.6 % (37.0-47.0); Hemoglobin 10.5 g/dL (12.0-16.0); O2 Saturation % 93.6 % (94-98); PCO2 49 mmHg (32-35); PO2 67 mmHg (83-108); Platelet Count 164 10^3/uL (130-400); Potassium 3.6 mMOL/L (3.5-5.1); Sodium 138 mMOL/L (136-145)
--- NOTE | 2025-07-13 12:30 | PTCARENOTE ---
pt received from [facility] @~1215, sedated on Precedex gtt, RASS -5. core temp 96.5F, bear hugger applied as ordered. 100% A/V paced per tele monitor, HR 74. A/V wires set to 74/10/10, Levophed gtt titrated as ordered,. PAP 50s/20s, CVP ~10-13, CI 1.89 .
Dobutamine gtt running as ordered. palpable pulses. pt mechanically ventilated, ETT #8.0, 22@lip. SIMV 14, TV 400, PEEP 5, FIO2 60%. POX 93%. CTx4, no air leak or crepitus noted. pt abdomen s/n, hypoactive BS. Leo in place. clear yellow urine.
sternal incision PROFESSOR OF PSYCHOLOGY, approximated. chest tube site c/d/i. . RIJ cordis/swan floated to 40 maintained. R radial [place] flushed, zeroed, and calibrated. PIV. insulin gtt running as ordered. lab work drawn, EKG completed, CXR completed. see worklist
for VS, I&O, and assessment.
[2025-07-13 12:40] LABS: APTT 32.6 Sec (23.4-35.0); INR 1.45; PT 17.9 Sec (11.4-14.6)
--- NOTE | 2025-07-13 12:50 | W.PN.UPDATE ---
Update Note
Progress Note Update
75 year old female electively admitted 07/13/25 for mitral valve replacement due to severe mitral stenosis in setting of prior TAVR
IV fluids: 1200
U.O.:� 700
Blood:� none
Wires:� A + V wires
Drips: Dobutamine @ 3, Levo @ 2, Precedex @ 0.5, Insulin
�
NEURO: sedated, pupils +2mm B/L
RESP: #8OT @24cm> 500/60%/14/5. Lungs clear B/L. 2 mediastinal (0cc on arrival) and R/L pleural (0cc on arrival) chest tubes to -20cm suction. Sanguineous drainage
CV: RRR +S1, S2, no S3, no�rub, no murmur. Dermabond to median sternotomy. RIJ w/Mosinee locked @ 47cm. PA 51/24; CVP 11
ABD: obese, round, soft, no BS
EXT: no edema, +2/4 DP pulses B/L, no femoral bruit, left radial A-line intact
: Leo with clear yellow urine
�
A/P: POD #0 s/p mitral valve replacement using a 27 mm bioprosthesis, placement of 2 x CV 3 [place]-Som neochords to both the anterior and posterior medial papillary muscle heads for left ventricular support, patch repair of annulus using bovine
pericardium post extensive ultrasonic debridement of mitral annular calcification (using CUSA), exploration of aorta to evaluate TAVR valve, debridement of fibrinous veil across the left main cells (described on left heart cath)
SAVAGE: EF�70-75%, MV mean 3mmHg
- wean and extubate>may need BiPAP d/t hx ERICKA
- will need instruction regarding antibiotic prophylaxis for dental and invasive procedures
# CAD (80% focal D1)
- will require ASA, statin, beta-janeth
�
# acute surgical blood loss anemia-expected
- trend CBC
# Hx s/p TAVR 2022
- stable
# T2DM (A1C 6.9)
- insulin infusion x 48h
- resume Mounjaro/Glipizide on DC
- DMNP following>T/C SGLT2i
�
# Class II obesity (BMI 36)
- resume�carb, calorie controlled diet
--- NOTE | 2025-07-13 12:59 | CON.INTV ---
Consultation
Consultation Request
Date/Time Consultation Requested: 07/13/2025-2:15 PM
Date/Time Consultation Performed: 07/13/2025-2:30 PM
Requesting Provider: Dr. Guzman
Performing Provider: Dr. Sandoval
Reason for Consultation: CAD
Medical History
-
Chief Complaint: CAD
History of Present Illness:
75-year-old non-smoking obese female with a history of hypertension, hyperlipidemia, diabetes, allergies, ERICKA on CPAP, and nonrheumatic mitral valve stenosis, hypertrophic obstructive cardiomyopathy who is previously status post TAVR underwent
complete resection mitral valve leaflet and placement of [place]-Som neocords and mitral valve replacement using 27 mm bioprosthesis-internal controls analyst consulted for postoperative ventilator/critical care management 07/13/2025. Patient is sedated on a
ventilator and seen in the CVICU. Ventilator settings were reviewed-patient on 60% FiO2. Patient is currently on dobutamine and norepinephrine. Chest tubes were reviewed and no significant dumping. Operative records were reviewed.
Past Medical History
Past Medical History: None (Hypertension. Hyperlipidemia. Mitral stenosis. History of TAVR. Obesity. ERICKA on CPAP. No allergies. Diabetes. Thalassemia. Foot surgery. Uterine artery embolization. Bunionectomy. Left TKA.)
Social History
Tobacco: Non-smoker
Alcohol: Occasional
Drug: None
Personal:
Living: With Family
Occupational Exposures: No known asbestos exposure
Environmental Exposures: No known tuberculosis exposure
Family History
Family History: Reviewed & Not Pertinent (Father-CAD and diabetes. Mother-hypertension and CAD. Paternal aunt-breast cancer)
Allergies / Home Medications
Allergies
Allergy/AdvReac Type Severity Reaction Status Date / Time
No Known Allergies Allergy Verified 07/04/25 10:45
Home Medications
�Medication �Instructions �Recorded �Confirmed �Last Taken �Type
glipizide 5 mg tablet, extended 10 mg PO DAILY 01/14/22 07/13/25 07/12/25 08:00 History
release 24 hr
aspirin 81 mg tablet,delayed 81 mg PO DAILY 07/08/23 07/13/25 07/12/25 08:00 History
release
ketoconazole 2 % topical cream 1 applic topical PRN PRN Foot Rash 10/21/23 07/13/25 07/06/25 History
losartan 25 mg tablet 25 mg PO DAILY #0 tabs 10/29/23 07/13/25 07/12/25 08:00 Rx
acetaminophen 500 mg tablet 1,000 mg PO Q6H PRN pain 07/03/25 07/13/25 06/06/25 History
(Tylenol Extra Strength)
atorvastatin 20 mg tablet 20 mg PO HS 07/03/25 07/13/25 07/12/25 17:00 History
metoprolol succinate 100 mg 100 mg PO BID 07/03/25 07/13/25 07/12/25 17:00 History
tablet,extended release 24 hr
sennosides 8.6 mg tablet (Senna 17.2 mg PO BID PRN constipation 07/03/25 07/13/25 07/12/25 History
Lax)
tirzepatide 15 mg/0.5 mL 15 mg SC WE 07/03/25 07/13/25 06/28/25 History
subcutaneous pen injector
(Mounjaro)
Review of Systems
-
Unable to Obtain full review of systems at this time due to: Other ( per HPI)
Vitals / Labs / Diagnostic Testing
Vital Signs
Temp Pulse Resp BP Pulse Ox
96.5 F L 74 0 126/63 92
07/13/25 12:05 07/13/25 12:25 07/13/25 12:15 07/13/25 05:45 07/13/25 12:52
Laboratory Results
07/13/25
12:19
PT 17.9 H
INR 1.45
APTT 32.6
pH 7.34 L
pCO2 49 H
pO2 67 L
HCO3 26.4
O2 Delivery Level
Diagnostic Testing:
Physical Exam
-
Exam:
Well-nourished and well-developed in no apparent distress
HEENT-atraumatic, normocephalic, oral tracheal intubation
Heart-regular rate and rhythm-no murmurs, rubs or gallops
Chest-clear to auscultation, no wheezes, crackles, median sternotomy bandage is not removed
Abdomen soft nondistended
Extremities-no cyanosis, clubbing, edema and good peripheral pulses
Integument-intact, no rashes, lesions or ecchymosis
Neurologically not alert, not oriented, not moving any of his extremities sedated on a ventilator
Assessment
-
75-year-old non-smoking obese female with a history of hypertension, hyperlipidemia, diabetes, allergies, ERICKA on CPAP, and nonrheumatic mitral valve stenosis, hypertrophic obstructive cardiomyopathy who is previously status post TAVR underwent
complete resection mitral valve leaflet and placement of [place]-Som neocords and mitral valve replacement using 27 mm bioprosthesis-internal controls analyst consulted for postoperative ventilator/critical care management 07/13/2025.
Nonrheumatic mitral valve stenosis
s/p complete resection of mitral valve leaflets, placement of [place]-Som needle cords to anterior and posterior medial papillary muscle and mitral valve replacement using 27 mm bioprosthesis-Dr. Guzman 07/13/2025
Mild anemia-hemoglobin 10.5
Hyperglycemia
Conditions present prior to admission:
Hypertension.
Hyperlipidemia.
Mitral stenosis.
History of TAVR.
Obesity.
ERICKA on CPAP.
Incidental 4 mm subpleural nodule lateral aspect right middle lobe on CT 06/25/2025
No allergies.
Diabetes.
Thalassemia.
Foot surgery. Uterine artery embolization. Bunionectomy. Left TKA.
Plan
Ventilator settings reviewed
FiO2 will be weaned
Minute ventilation will be adjusted
Arterial blood gases will be monitored
Spontaneous breathing trial will be attempted with hopeful extubation after anesthesia/sedation wear off
Pulmonary artery catheter parameters will be followed
Pressors/antihypertensive/inotropes/diuretics will be provided as needed
Monitor chest tube output
Monitor hemoglobin
Monitor platelet count and coags
Transfuse blood product if needed
CT surgery following chest tubes
Monitor blood sugar
Insulin drip per protocol
Aspiration precautions
VAP prevention protocol
DVT prophylaxis
Early nutrition
Early mobilization
She is on CPAP for obstructive sleep apnea-I checked [facility] records and she is not a local patient
CT chest 06/2026 to follow-up on 4 mm nodule was recommended
Critical care statement: A total of 50 minutes of critical care time was provided for this patient today. This includes management of ventilator, spontaneous breathing trial, arterial blood gases, pressors, of unstable vital signs, evaluation of the
patient at bedside, reviewing the patient's pertinent medical records including radiographs, microbiology, laboratory evaluations, and discussion with primary team and critical care nursing.
Diagnostic data:
Chest x-ray 10/28/2023-cardiomegaly and possible mild interstitial edema
Chest x-ray 07/13/2025-endotracheal tube 3 cm above lucero, minimal basilar atelectasis on the right
CT angiography 06/29/2025-transcatheter aortic valve replacement, mild to moderate coronary artery calcifications, 4 mm subpleural nodule lateral aspect right middle lobe
Echocardiogram 01/23/2025-EF 76%, moderate to severe asymmetrical septal hypertrophy, severe mitral stenosis status post TAVR
Cardiac catheterization 07/03/2025-right heart catheterization-RA 17, PA 66/29, PCWP-33, cardiac index 2.45, no significant aortic valve gradient, single branch vessel diagonal obstructive CAD and dominant right-sided system
Data Reviewed
-
EKG: Report reviewed by me
Radiology: Report reviewed by me
CT Scan: Report reviewed by me
Medical Tests (Nuc Med, Echo etc): Report reviewed by me
Labs: Labs reviewed by me
Old Records: Reviewed
Critical Care Time (in minutes): 50
[2025-07-13 13:10] LABS: Glucose - Point of Care 128 mg/dl (70-99)
[2025-07-13] MEDS: ANCEF 10 IV ×2 (13:15)
[2025-07-13] MEDS: NSS 500 IV (13:16)
[2025-07-13] MEDS: NOVOLOG FLEXPEN SC ×3 (13:16→15:09)
[2025-07-13] MEDS: TYLENOL PO (13:16)
[2025-07-13] MEDS: KCL 50 IV (13:16)
[2025-07-13 13:18] LABS: Blood Urea Nitrogen 16 mg/dl (7-17); Estimated Creatinine Clearance 96 ml/min; Glucose 96 mg/dl (70-99); Magnesium 2.6 mg/dl (1.6-2.3)
--- NOTE | 2025-07-13 13:32 | PN.DE.MGMTRT ---
Insulin Management
- -
07/13/2025: Diabetes Management Consult
75 year old female electively admitted 07/13/25 for mitral valve replacement due to severe mitral stenosis in setting of prior TAVR.
PMH: HTN, HLD, AVS s/p TAVR in 2022, Severe pulmonary HTN, ERICKA on CPAP, T2DM, Morbidly obesity.
Was taking Glipizide 10mg daily and Mounjaro 15 mg weekly on wed. A1C 6.9%, Cr 0.7, eGFR >60
Pt is intubated and She is POD #0 s/p MVR and has been initiated on Critical care glycemic protocol x 48 hrs post-op.
Consider adding SGLT-2 and resuming pt's home oral Meds upon transitioning off insulin infusion.
Will follow up on Wednesday.
Diabetes History
- -
Type of Diabetes: 2
Pre-Admission Diabetes Regimen
07/13/25
12:19
Creatinine 0.6
Lab Results
Hemoglobin A1c 6.9 % (4.0-5.9) H 07/06/25 08:19
Insulin Pump Settings
IP Diabetes Regimen
07/13/25 07/13/25 07/13/25
12:15 12:19 13:08
Glucose 96
POC Glucose 96 128 H
Patient Education
[2025-07-13 14:01] LABS: Glucose - Point of Care 141 mg/dl (70-99)
[2025-07-13] MEDS: LR 250 IV (14:34)
--- NOTE | 2025-07-13 14:39 | W.PN.CD ---
Addendum entered and electronically signed by Ashok Hernandez MD 07/13/25 16:54:
I saw and examined the patient independently, and performed majority of MDM.
The MACHINE ASSISTANT's note was reviewed and I agree with the note with changes/additions below. H/o severe mitral stenosis (not MR as listed below).
Comment: 75 yo female with PMH of severe MS is now admitted following bio-MVR today. Weaning from drips and vent. Exam with RRR, no murmurs, trace LE edema. Tele: AV paced. SAVAGE: EF 75%.
s/p bio-MVR for calcific mitral stenosis. Continue to wean drips and vent.
Prior h/o TAVR. Stable.
Original Note:
Today's Communication / Plan
-
continue post op management
Impression / Plan
-
Severe MR - s/p MVR 07/13/25.
- intubated/sedated post op
- management per CT surgery
Anemia - acute post op
- monitor
s/p TAVR - stable
DM - insulin drip post op
Obesity - would benefit from weight loss
Physical Exam
Vital Signs/Labs
Vital Signs
Temp Pulse Resp BP Pulse Ox
98 F 74 0 126/63 93
07/13/25 14:10 07/13/25 14:00 07/13/25 14:00 07/13/25 05:45 07/13/25 14:00
07/12/25 07/13/25 07/14/25
06:59 06:59 06:59
Actual Weight 229 lb 0.964 oz
07/13/25 12:19
PT 17.9 Sec (11.4-14.6) H 07/13/25 12:19
INR 1.45 07/13/25 12:19
APTT 32.6 Sec (23.4-35.0) 07/13/25 12:19
Magnesium 2.6 mg/dl (1.6-2.3) H 07/13/25 12:19
Physical Exam
Constitutional: No acute distress
EENT: Anicteric
Cardiovascular: Rhythm & rate is regular (av paced )
Respiratory: Lungs clear to auscul. (anteriorly on vent)
GI: Soft and Non tender
Neuro/Psych: AO x 3
Other: Skin (warm, dry )
Data Reviewed
-
Date of Service: July 13, 2025
Medical Decision Making: Reviewed Test Results
EKG: Tracing Personally Visualized and interpreted
Labs: Labs Reviewed by me
[2025-07-13 14:42] LABS: B.E. -1.0 mmol/L; HCO3 24.8 mmol/L (21-28); O2 Saturation % 93.9 % (94-98); PCO2 45 mmHg (32-35); PO2 70 mmHg (83-108)
[2025-07-13] MEDS: LR 1000 IV (14:48)
[2025-07-13 14:53] LABS: Glucose - Point of Care 134 mg/dl (70-99)
[2025-07-13 15:38] LABS: Hematocrit 34.7 % (37.0-47.0); Hemoglobin 10.9 g/dL (12.0-16.0); Platelet Count 196 10^3/uL (130-400)
[2025-07-13] MEDS: PACERONE PO (15:41)
[2025-07-13 15:53] LABS: Glucose - Point of Care 124 mg/dl (70-99)
--- NOTE | 2025-07-13 16:09 | PTCARENOTE ---
pt reassessed. LR infusing. See MAR. 100% A/V paced. Pt drowsy but awoken to verbal stimuli and able to follow commands. VSS.
[2025-07-13 16:29] LABS: B.E. -1.5 mmol/L; HCO3 23.7 mmol/L (21-28); O2 Saturation % 97.3 % (94-98); PCO2 41 mmHg (32-35); PO2 86 mmHg (83-108); Potassium 5.0 mMOL/L (3.5-5.1); Sodium 138 mMOL/L (136-145)
[2025-07-13 17:54] LABS: Glucose - Point of Care 121 mg/dl (70-99)
[2025-07-13] MEDS: OFIRMEV 100 IV (18:14)
[2025-07-13] MEDS: SODIUM BICARBONATE 50 MEQ IV (20:03)
--- NOTE | 2025-07-13 20:15 | PTCARENOTE ---
Report received from RHIANNON Singh at bedside. Pt on Vent, SIMV, FiO2 40%, Rate 14, TV 450, Peep 8, PS 5. Drowsy but will arouse to voice. Nods appropriately to questions. Follow simple commands with equal strength x 4. BBS present. Decreased throughout
anteriorly and to bases. Sats 93%.
Pt AV paced at 74 bpm with AV epicardial wires. Levo gtt titrated to maintain SBP 90-110 mm HG. Dobutamine gtt at 3 mcg/kg/min. Audible heart tones. Palpable +2 pulses to B DP and radials. CT x 4 to -20 cm suction. Surgibra intact. Sternal incision
glued, approximated. L radial A line and [place] PA and CVP waveforms with pulsatile tracings. 50 meQ NsHCO3 given per order at 2002. CI done: 2.01. Belly soft, round, obese. Hypoactive bs x 4. NPO. Leo to drain, clear yellow urine. Q 1 hr
I/Os. Glycemic protocol maintained. Sons and at bedside, Updated on plan of care. Ongoing plan of care. Denies pain.
[2025-07-13 20:26] LABS: Glucose - Point of Care 110 mg/dl (70-99)
[2025-07-13] MEDS: ANCEF 5 IV (21:01)
[2025-07-13] MEDS: SENOKOT PO (21:01)
[2025-07-13] MEDS: ZOFRAN 4 MG IV (21:15)
[2025-07-13 22:01] LABS: Glucose - Point of Care 129 mg/dl (70-99)
[2025-07-13 22:02] LABS: B.E. 0.3 mmol/L; HCO3 25.4 mmol/L (21-28); O2 Saturation % 96.5 % (94-98); PCO2 42 mmHg (32-35); PO2 75 mmHg (83-108); Potassium 4.7 mMOL/L (3.5-5.1)
[2025-07-13 23:15] LABS: Glucose - Point of Care 128 mg/dl (70-99)
[2025-07-14] VITALS (29 sets, daily range): BP systolic 93–115; BP diastolic 41–55; BMI 38.2
--- NOTE | 2025-07-14 | W.PN.CT ---
Addendum entered and electronically signed by Javier Tello MD 07/14/25 09:13:
I saw and examined the patient.
The PA's note was reviewed and I agree with the note.
Comment:
CODYMEREJALEEL [id number]:
POD#1 s/p MVR, patch repair of annulus, exploration of prior TAVR w/ debridement
Doing very well.� No major overnight events.� Extubated at approx. 10 PM.� AVSS.� Sinus.� GTTS: dobutamine 3, levophed OFF, insulin.� CT: M: 115, P: 65.� UO: 370 (815), creat 0.8.� Neuro: intact.� CXR: clear.�
-��������� Wean dobutamine for CI > 2.0
-��������� De-line later today
-��������� OOB/IS
-��������� Potential D/C pleural CTs later today
-��������� No diuresis today
Original Note:
Today's Communication / Plan
-
Plan:
-No major issues overnight. Hemodynamically and neurologically intact
-Successfully extubated on 07/13/25 @ 2215
-On Dobutamine @ 3, and insulin gtt per protocol. Levophed and 1L LR gtt weaned off overnight
-Last CI 2.72, MVO2 72.4%, U/O since OR 780 mL
-No longer requiring A/V pacing for postop sinus bradycardia in the 40's. Currently NSR @ 68 bpm
-Monitor chest tube output: 2meds 100/170, R/L pleural 60/115
-Holding BB while on dobutamine
-Wean dobutamine as tolerated
-Will d/c swan and a-line once off dobutamine
-Maintain berry catheter for accurate I/O's while on dobutamine
-Maintain cordis for medication administration/phlebotomy
-Maintain insulin gtt per protocol, will transition off tomorrow, diabetic with A1C of 6.9, will consult Diabetes education/management
-Maintain temporary PW
-Encourage use of IS
-Wean off O2 as tolerated
-OOB into chair/Ambulate
Assessment / Plan
-
Assessment:
-S/P Standard sternotomy/Complete resection of mitral valve leaflets as well as subvalvular apparatus down to level the papillary muscle heads via transseptal approach/ Placement of 2 x CV 3 [place]-Som neochords to both the anterior and posterior
medial papillary muscle heads for left ventricular support and mitral valve replacement using a 27 mm bioprosthesis/ Patch repair of annulus using bovine pericardium post extensive ultrasonic debridement of mitral annular calcification (using
CUSA)/Exploration of aorta to evaluate TAVR valve, debridement of fibrinous veil across the left main cells described on left heart cath, by Dr. Guzman, 07/13/25, pod#1
-Severe mitral valve stenosis, secondary to dense mitral annular calcification and calcific disease of the leaflets
-Previous aortic valve stenosis status post TAVR, 03/16/2023 @ [facility]
-LVEF 70-75%
-Severe pulmonary hypertension
-Hyperlipidemia
-Hypertension
-Type 2 diabetes (A1c 6.9)
-ERICKA (noncompliant with CPAP @ home)
-Class 2 obesity (BMI 36.4)
-Thalassemia minor
-Bradycardia
-S/P L TKA, 10/27/23
-S/p Uterine artery embolization
-S/p Vaginal septum removal
-S/P Bunionectomy
-Acute intraop/postop blood loss/Anemia (stable without transfusion)
-Acute postop atelectasis
-Acute postop hypovolemia with subsequent hypervolemia
-Acute postop bradycardia in 40's requiring A/V pacing in 70's
Discussed patient care with: Cardiology, Nursing, Respiratory Therapy, Pharmacy and Care Team
Subjective
Procedure
S/P Standard sternotomy/Complete resection of mitral valve leaflets as well as subvalvular apparatus down to level the papillary muscle heads via transseptal approach/ Placement of 2 x CV 3 [place]-Som neochords to both the anterior and posterior
medial papillary muscle heads for left ventricular support and mitral valve replacement using a 27 mm bioprosthesis/ Patch repair of annulus using bovine pericardium post extensive ultrasonic debridement of mitral annular calcification (using
CUSA)/Exploration of aorta to evaluate TAVR valve, debridement of fibrinous veil across the left main cells described on left heart cath, by Dr. Guzman, 07/13/25,
-
Date of Service: July 14, 2025
C/o incisional pain, otherwise feels well
Objective Data
-
Lab Results
07/13/25 15:20
07/13/25 12:19
PT 17.9 Sec (11.4-14.6) H 07/13/25 12:19
INR 1.45 07/13/25 12:19
APTT 32.6 Sec (23.4-35.0) 07/13/25 12:19
Vital Signs
Vital Signs
Temp Pulse Resp BP Pulse Ox
99.5 F 68 19 114/54 97
07/13/25 23:00 07/13/25 23:00 07/13/25 23:00 07/13/25 20:48 07/13/25 23:00
CT Intake/Output/Weight
07/13/25 07/13/25 07/14/25
06:59 18:59 06:59
Intake Total 1307.5 / 2043.8 736.3 / 2043.8
Output Total 570 / 795 225 / 795
Balance 737.5 / 1248.8 511.3 / 1248.8
SaO2: 97 (4L)
Physical Exam
-
General: Awake, Oriented and AOx3
Cardiovascular: Regular rate & rhythm, No Murmurs, No Rub and No Gallop
Respiratory: Decreased Breath Sounds (at bases, otherwise clear)
Sternum: Stable
Incision: Clean, Dry, Intact and Dressing Intact
Extremities: Edema +2
Data Reviewed
-
Lab Results: Results Reviewed
Medications: Active Meds Reviewed
Chest X-Ray: Report Reviewed and Image Reviewed
ECG: Report Reviewed and Image Reviewed
[2025-07-14 00:01] LABS: Glucose - Point of Care 105 mg/dl (70-99)
--- NOTE | 2025-07-14 00:10 | PTCARENOTE ---
Pt placed onto CPAP, 40% FiO2, peep 5, PS 5, at 2044. RR 14-13 br/min. Spont TV ex is 420-450 mls. Sats maintained at 92-95%. At ~ 2109, pt gagging, vomiting: mucus and clear fluid. Zofran 4 mg IV given. Vomiting ceased. Pt remains on CPAP. ABG
drawn at 2154. Order to extubate pt. Just prior to extubation, pt gagging on ett. Small amount mucus, clear white fluid expelled. Sats 93-95%. Pt extubated to 6L/NC at 2214. No more gagging/vomiting. Sats 93-95%. BBS present. No stridor present. No
hoarseness of voice. CDB and IS done with pt. IS 1000 mls. Repeat CIs are 1.91 (at 220) and 2.33 (at 0006). Shared with PA. Following cuff BP. Latest cuff BP 102/41 vs a line BP 120's/45. Levo off per PA order at 2254. At 225, temporary pacer rate
decreased to 45 (DDI). Pt intrinsic rhythm upper 60's. Maintaining BP. CI in 1 hr after pt in her own rhty is 2.33 (as stated above). UO 30-35 mls / hr.
[2025-07-14] MEDS: PACERONE PO (00:50)
[2025-07-14] MEDS: LIPITOR 20 MG PO ×2 (00:51→23:14)
[2025-07-14] MEDS: CALCIUM GLUCONATE 100 IV (00:51)
[2025-07-14] MEDS: TYLENOL 975 MG PO ×4 (00:55→23:15)
[2025-07-14] MEDS: LR IV (01:00)
[2025-07-14 01:16] LABS: Glucose - Point of Care 92 mg/dl (70-99)
[2025-07-14 02:14] LABS: Glucose - Point of Care 97 mg/dl (70-99)
[2025-07-14] MEDS: DILAUDID 0.25 MG IV ×4 (02:39→20:27)
--- NOTE | 2025-07-14 02:40 | PTCARENOTE ---
UO 15 mls for past hr. LR off per order at 0100. CaGluconate 2 GM IV given per protocol. CT at 0208 is 2.28. PA called and notified of CI, cuff and A-line BPs. No new orders given. Pt with 7/10 pain to lateral sides of chest. Dilaudid 0.25 mg IV
given for pain. Ongoing plan of care.
[2025-07-14] MEDS: ANCEF 5 IV ×2 (04:30→11:56)
[2025-07-14 04:56] LABS: Hematocrit 30.7 % (37.0-47.0); Hemoglobin 9.5 g/dL (12.0-16.0); Mean Corp Hgb Conc. 30.9 g/dL (33.0-37.0); Mean Corpuscular Volume 74.3 fL (81.0-99.0); Platelet Count 159 10^3/uL (130-400); Red Cell Dist. Width 15.6 % (11.5-14.5)
[2025-07-14 05:10] LABS: Blood Urea Nitrogen 21 mg/dl (7-17); Calcium 8.5 mg/dl (8.4-10.2); Carbon Dioxide 27 mmol/L (22-30); Chloride 107 mmol/L (98-107); Estimated Creatinine Clearance 72 ml/min; Glucose 119 mg/dl (70-99); Magnesium 2.3 mg/dl (1.6-2.3); Potassium 4.4 mmol/L (3.5-5.1); Sodium 140 mmol/L (135-145); eGFR > 60.00
--- NOTE | 2025-07-14 06:30 | PTCARENOTE ---
Labs drawn and sent. EKG done. CXR done. Surgi bra changed. Upper body washed with CHG wipes. Pt c/o 03/15 B lateral CP. Dilaudid 0.25 mg IV given ~ 626. See NOV. Dobutamine gtt remains at 3 mcg/kg/min. Glycemic protocol maintained. Ongoing plan of
care.
[2025-07-14 07:12] LABS: Glucose - Point of Care 114 mg/dl (70-99)
[2025-07-14 07:12] LABS: Glucose - Point of Care 101 mg/dl (70-99)
--- NOTE | 2025-07-14 07:15 | PTCARENOTE ---
Report to RHIANNON Singh. Walking rounds done.
--- NOTE | 2025-07-14 07:43 | W.PN.INTV ---
Today's Communication / Plan
Recommendations
Tolerated extubation
Dobutamine continues
Norepinephrine off
Insulin drip continues
Increase activity
Wean FiO2
Assessment
-
75-year-old non-smoking obese female with a history of hypertension, hyperlipidemia, diabetes, allergies, ERICKA on CPAP, and nonrheumatic mitral valve stenosis, hypertrophic obstructive cardiomyopathy who is previously status post TAVR underwent
complete resection mitral valve leaflet and placement of [place]-Som neocords and mitral valve replacement using 27 mm bioprosthesis-city wellness coordinator consulted for postoperative ventilator/critical care management 07/13/2025.
Nonrheumatic mitral valve stenosis
s/p complete resection of mitral valve leaflets, placement of [place]-Som needle cords to anterior and posterior medial papillary muscle and mitral valve replacement using 27 mm bioprosthesis-Dr. Guzman 07/13/2025
Mild anemia-hemoglobin 10.5
Hyperglycemia
Conditions present prior to admission:
Hypertension.
Hyperlipidemia.
Mitral stenosis.
History of TAVR.
Obesity.
ERICKA on CPAP.
Incidental 4 mm subpleural nodule lateral aspect right middle lobe on CT 06/25/2025
No allergies.
Diabetes.
Thalassemia.
Foot surgery. Uterine artery embolization. Bunionectomy. Left TKA.
Plan
Tolerated extubation
Wean FiO2
Encourage incentive spirometry
Increase activity
Aspiration precautions
Pulmonary artery catheter and arterial line will be removed
Pressors have been weaned
Continue to monitor chest tube output
Follow hemoglobin
Continue to follow platelet count and coags
Transfuse blood product as needed
CT surgery following chest tubes as well
Dobutamine continues
Norepinephrine weaned off
Follow blood sugar
Insulin supplementation continues as needed
Early nutrition
Early mobilization
DVT prophylaxis
She is on CPAP for obstructive sleep apnea-I checked [facility] records and she is not a local patient
She reports trying CPAP for 2 years-last tried 2 years ago, was intolerant, has lost significant weight and is 'snoring less', alternative treatments reviewed and recommended follow-up
CT chest 06/2026 to follow-up on 4 mm nodule was recommended
Critical care statement: A total of 35 minutes of critical care time was provided for this patient today. This includes management of ventilator, spontaneous breathing trial, arterial blood gases, pressors, of unstable vital signs, evaluation of the
patient at bedside, reviewing the patient's pertinent medical records including radiographs, microbiology, laboratory evaluations, and discussion with primary team and critical care nursing.
Diagnostic data:
Chest x-ray 10/28/2023-cardiomegaly and possible mild interstitial edema
Chest x-ray 07/13/2025-endotracheal tube 3 cm above lucero, minimal basilar atelectasis on the right
CT angiography 06/29/2025-transcatheter aortic valve replacement, mild to moderate coronary artery calcifications, 4 mm subpleural nodule lateral aspect right middle lobe
Echocardiogram 01/23/2025-EF 76%, moderate to severe asymmetrical septal hypertrophy, severe mitral stenosis status post TAVR
Cardiac catheterization 07/03/2025-right heart catheterization-RA 17, PA 66/29, PCWP-33, cardiac index 2.45, no significant aortic valve gradient, single branch vessel diagonal obstructive CAD and dominant right-sided system
Subjective Dataa
Subjective Data
Date of Service:
Date of Service: July 14, 2025
Chief Complaint: Head Cook Follow Up and Pulmonary Follow Up
Subjective:
Tolerated extubation, mild shortness of breath, no chest pain or abdominal pain
Review of Systems
General: Other ( per HPI)
Objective Data
Data Reviewed
Vital Signs / I&O / Oxygen:
Vital Signs
Temp Pulse Resp BP Pulse Ox
98.9 F 81 13 98/43 97
07/14/25 07:00 07/14/25 07:10 07/14/25 07:10 07/14/25 07:00 07/14/25 07:10
Intake and Output
07/13/25 07/14/25 07/15/25
06:59 06:59 06:59
Intake Total 2780.0 / 2806.3 26.3 / 26.3
Output Total 1120 / 1150
Balance 1660.0 / 1656.3 -3.7 / -3.7
SaO2 [CPAP] 95
SaO2 [SIMV] 95
SaO2 97
Nasal Cannula flow liters per 4
minute
Physical Exam
General: Respiratory Distress (n) and Comfortable
HEENT: Normocephalic, Anicteric and Moist Mucous Membranes
Respiratory: Wheeze (n), Crackles (Rare basilar), Rhonchi (n), Non-Labored Respirations, Accessory Resp Muscle Use (n) and Stridor (n)
GI: Soft, Non Distended and Non Tender
Neurology: Awake, Alert and No Motor Deficits
Skin: Warm, Good Color, Cyanosis (n), Jaundice (n) and Rash (n)
Labs/Micro/Reports
Lab Data
07/14/25 04:33
07/14/25 04:33
Laboratory Results
07/13/25 07/13/25 07/13/25
12:19 14:29 16:13
PT 17.9 H
INR 1.45
APTT 32.6
pH 7.34 L 7.35 7.37
pCO2 49 H 45 H 41 H
pO2 67 L 70 L 86
HCO3 26.4 24.8 23.7
O2 Delivery Level
07/13/25
21:56
PT
INR
APTT
pH 7.39
pCO2 42 H
pO2 75 L
HCO3 25.4
O2 Delivery Level
[2025-07-14 08:21] LABS: Glucose - Point of Care 100 mg/dl (70-99)
[2025-07-14] MEDS: BACTROBAN 2% OINTMENT 1 APPLIC NASAL ×2 (08:33→20:26)
[2025-07-14] MEDS: SENOKOT 8.6 MG PO ×2 (08:33→20:27)
[2025-07-14] MEDS: PACERONE 200 MG PO ×2 (08:33→17:00)
[2025-07-14] MEDS: MAGNESIUM OXIDE 400 MG PO ×2 (08:33→20:26)
[2025-07-14] MEDS: LOW STRENGTH ASPIRIN 81 MG PO (08:33)
[2025-07-14] MEDS: PROTONIX 40 MG PO (08:33)
[2025-07-14] MEDS: LOPRESSOR 12.5 MG PO (08:33)
--- NOTE | 2025-07-14 08:35 | PTCARENOTE ---
received pt from previous rn. Pt AAOx4, VSS. NSR per tele monitor HR 70s. A/V wires set to DDI 45/10/10. +pulses. Trace edema. Pox 96% on 4L NC. Lungs diminished. CTx4 set to -20 cm wall suction no air leak, tidaling, or crepitus. hypoactive bs.
Leo draining minimal clear yellow urine. Sternum incision approx., oliverio. CT dressing c/d/i. RIJ cordis/harpreetan floated to 40 maintained. R radial [place] flushed, zeroed, and calibrated. PIV. insulin gtt running as ordered. plan of care discussed and
questions encouraged. call [facility] within reach.
[2025-07-14] MEDS: NOVOLOG FLEXPEN 4 UNITS SC ×2 (08:38→17:03)
[2025-07-14] MEDS: FLEXERIL 5 MG PO (08:38)
[2025-07-14] MEDS: LIDOCAINE 4% PATCH TOPICAL (08:44)
[2025-07-14 10:12] LABS: Glucose - Point of Care 94 mg/dl (70-99)
[2025-07-14] MEDS: LR 250 ML IV (11:05)
--- NOTE | 2025-07-14 11:52 | PTCARENOTE ---
pt reassessed. NSR per tele monitor. pox 99% on 2L NC. Pt w/ minimal UO, CTNP made aware. 250 LR bolus given. assessment unchanged otherwise
[2025-07-14] MEDS: NSS IV (11:56)
[2025-07-14 12:04] LABS: Glucose - Point of Care 92 mg/dl (70-99)
[2025-07-14] MEDS: ROXICODONE 5 MG PO (12:38)
[2025-07-14 14:13] LABS: Glucose - Point of Care 110 mg/dl (70-99)
[2025-07-14] MEDS: FERRLECIT 110 MG IV (14:27)
[2025-07-14] MEDS: NOVOLIN R INSULIN INFUSION 100 IV (14:53)
[2025-07-14 16:06] LABS: Glucose - Point of Care 104 mg/dl (70-99)
[2025-07-14] MEDS: NOVOLOG FLEXPEN SC (16:46)
--- NOTE | 2025-07-14 17:00 | PTCARENOTE ---
pt reassessed. VSS. NSR per tele monitor. HR 80s. no complaints of pain at this time. assessment remains unchanged.
[2025-07-14 17:06] LABS: Glucose - Point of Care 114 mg/dl (70-99)
[2025-07-14 18:12] LABS: Glucose - Point of Care 120 mg/dl (70-99)
[2025-07-14 19:12] LABS: Hepatitis C Antibody Negative (Negative)
[2025-07-14 19:50] LABS: Glucose - Point of Care 103 mg/dl (70-99)
[2025-07-14] MEDS: LOPRESSOR PO (20:26)
[2025-07-14] MEDS: REMOVE LIDOCAINE PATCH 1 PATCH REMOVE (20:27)
--- NOTE | 2025-07-14 20:30 | PTCARENOTE ---
Report received from RHIANNON Singh. Walking rounds done. Pt awake, alert, oriented x 4. Speech clear. Equal strength x 4. Pt on 2L/NC. Sats 91-92%. Increased to 3L/NC. CDB, IS done. IS peak 750 mls. Sats now 93-95%. BBS present. Decreased to B bases. CT
x 4 to -20 cm suction. Audible heart tones. Pt in SR with occasional PVCs. CI done at 1957: 2.68. Dobutamine gtt at 2 mcg/kg/min. L radial A line, RIJ [place] PA and CVP lines levelled, zeroed, and pulsatile. AV wire attached to pacing box. DDD, Rate
45, mA 10. +2 nonpitting ankle and pedal edema present. +2 palpable pulses to B DP and B radial pulses. Metoprolol and Amiodarone held per orders. Surgibra on. See flowsheet for wound assessments. Belly soft, nontender. Hypoactive x 4. Denies
flatus. Reports belching. Leo with clear, yellow urine. Hourly UO recorded. Glycemic protocol followed. Dilaudid 0.25 mg IV given at 2026 for moderate c/o pain to B lateral chest. Ongoing plan of care.
[2025-07-14 20:56] LABS: Glucose - Point of Care 107 mg/dl (70-99)
[2025-07-14] MEDS: ROXICODONE 2.5 MG PO (23:56)
[2025-07-15] VITALS (36 sets, daily range): BP systolic 85–144; BP diastolic 42–84; BMI 39.0
--- NOTE | 2025-07-15 | PTCARENOTE ---
Roxicodone 2.5 mg given for c/o moderate right and left lateral CP. Dobutamine gtt at 2 mcg/kg/min. CI at 2300 is 2.89. PA pressures noted to be more elevated: 53-60/20-22. Pt denies dyspnea. Ed, PA notified. Pt remains in SR with PVCs.
[2025-07-15 00:09] LABS: Glucose - Point of Care 87 mg/dl (70-99)
--- NOTE | 2025-07-15 01:25 | W.PN.CT ---
Addendum entered and electronically signed by Javier Tello MD 07/15/25 09:11:
I saw and examined the patient.
The PA's note was reviewed and I agree with the note.
Comment:
POD#2
AF at 2AM, given amio bolus x 2 and gtt, converted at 7:40AM. CI 2.23 w/ dobutamine @ 1
- Wean dobutamine to OFF today for CI > 2.0
- De-line
- D/C CTs
- light diuresis
- continue amiodarone
Original Note:
Today's Communication / Plan
-
Plan:
-No major issues overnight. Hemodynamically and neurologically intact
-On Dobutamine @ 1. Wean from 2 overnight @ 2:15 AM when pt went into a-fib with RVR 130-140's. Got Amiodarone bolus x 2 and started on Amiodarone gtt
-Last CI with dobutamine @ 1-> 2.23 , MVO2 64.3%, 24hrs U/O 655 mL
-No longer requiring A/V pacing for postop sinus bradycardia in the 40's. Currently in a-fib since 214 this AM
-Consider D/C of chest tubes: 2meds 40/145, R/L pleural 45/175
-Maintain temporary PW now that she's in A-fib, will likely need to cut before d/c home
-Holding BB while on dobutamine. Placed PO Amiodarone on hold while on Amiodarone gtt
-Wean dobutamine as tolerated
-Will d/c swan and a-line once off dobutamine
-Maintain berry catheter for accurate I/O's while on dobutamine
-Maintain cordis another day for medication administration/phlebotomy
-Will transition off insulin gtt today per protocol, diabetic with A1C of 6.9, will consult Diabetes education/management
-Encourage use of IS
-Wean off O2 as tolerated
-OOB into chair/Ambulate
Assessment / Plan
-
Assessment:
-S/P Standard sternotomy/Complete resection of mitral valve leaflets as well as subvalvular apparatus down to level the papillary muscle heads via transseptal approach/ Placement of 2 x CV 3 [place]-Som neochords to both the anterior and posterior
medial papillary muscle heads for left ventricular support and mitral valve replacement using a 27 mm bioprosthesis/ Patch repair of annulus using bovine pericardium post extensive ultrasonic debridement of mitral annular calcification (using
CUSA)/Exploration of aorta to evaluate TAVR valve, debridement of fibrinous veil across the left main cells described on left heart cath, by Dr. Guzman, 07/13/25, pod#2
-Severe mitral valve stenosis, secondary to dense mitral annular calcification and calcific disease of the leaflets
-Previous aortic valve stenosis status post TAVR, 03/16/2023 @ [place]
-LVEF 70-75%
-Severe pulmonary hypertension
-Hyperlipidemia
-Hypertension
-Type 2 diabetes (A1c 6.9)
-ERICAK (noncompliant with CPAP @ home)
-Class 2 obesity (BMI 36.4)
-Thalassemia minor
-Bradycardia
-S/P L TKA, 10/27/23
-S/p Uterine artery embolization
-S/p Vaginal septum removal
-S/P Bunionectomy
-Acute intraop/postop blood loss/Anemia (stable without transfusion)
-Acute postop atelectasis
-Acute postop hypovolemia with subsequent hypervolemia
-Acute postop bradycardia in 40's requiring A/V pacing in 70's
-Acute postop a-fib with RVR 130-140's
Discussed patient care with: Cardiology, Nursing, Respiratory Therapy, Pharmacy and Care Team
Subjective
Procedure
S/P Standard sternotomy/Complete resection of mitral valve leaflets as well as subvalvular apparatus down to level the papillary muscle heads via transseptal approach/ Placement of 2 x CV 3 [place]-Som neochords to both the anterior and posterior
medial papillary muscle heads for left ventricular support and mitral valve replacement using a 27 mm bioprosthesis/ Patch repair of annulus using bovine pericardium post extensive ultrasonic debridement of mitral annular calcification (using
CUSA)/Exploration of aorta to evaluate TAVR valve, debridement of fibrinous veil across the left main cells described on left heart cath, by Dr. Guzman, 07/13/25,
-
Date of Service: July 15, 2025
Pt c/o mild incisional pain, otherwise feels well
Objective Data
-
PT 17.9 Sec (11.4-14.6) H 07/13/25 12:19
INR 1.45 07/13/25 12:19
APTT 32.6 Sec (23.4-35.0) 07/13/25 12:19
Vital Signs
Vital Signs
Temp Pulse Resp BP Pulse Ox
99.5 F 82 17 118/45 95
07/15/25 00:00 07/15/25 01:00 07/15/25 01:00 07/15/25 01:00 07/15/25 01:00
CT Intake/Output/Weight
07/14/25 07/14/25 07/15/25
06:59 18:59 06:59
Intake Total 1472.5 / 2806.3 771.6 / 948.0 176.4 / 948.0
Output Total 550 / 1150 530 / 770 240 / 770
Balance 922.5 / 1656.3 241.6 / 178.0 -63.6 / 178.0
SaO2: 95 (4L)
Physical Exam
-
General: Awake, Oriented and AOx3
Cardiovascular: Regular rate & rhythm, No Murmurs and No Rub
Respiratory: Decreased Breath Sounds (at bases, otherwise clear)
Sternum: Stable
Incision: Clean, Dry, Intact and Dressing Intact
Extremities: Edema +1
Data Reviewed
-
Lab Results: Results Reviewed
Medications: Active Meds Reviewed
Chest X-Ray: Report Reviewed and Image Reviewed
ECG: Report Reviewed and Image Reviewed
[2025-07-15] MEDS: DILAUDID 0.25 MG IV (01:34)
[2025-07-15 01:50] LABS: Glucose - Point of Care 128 mg/dl (70-99)
[2025-07-15] MEDS: CORDARONE 103 MG IV ×3 (02:30→17:52)
[2025-07-15 03:05] LABS: Glucose - Point of Care 137 mg/dl (70-99)
--- NOTE | 2025-07-15 03:10 | PTCARENOTE ---
Pt went into AF at 0208. Rate 120-140's at times. SBP down to 79-80. Levo gtt at 1 mcg briefly from 211 to 219. SBP now >90 mmHG. PA notified. Dobutamine gtt decreased to 1 mcg/kg/min at 214. Amiodarone bolus 150 mg given at 229. O2 increased
to 4L/NC for sats 90-91%. Pt encouraged to CDB. Sats up to 92-94%. HR now 100's, AF. CI done: 2.34.
[2025-07-15 03:23] LABS: Hematocrit 28.5 % (37.0-47.0); Hemoglobin 8.8 g/dL (12.0-16.0); Mean Corp Hgb Conc. 30.9 g/dL (33.0-37.0); Mean Corpuscular Volume 75.8 fL (81.0-99.0); Platelet Count 130 10^3/uL (130-400); Red Cell Dist. Width 15.6 % (11.5-14.5)
[2025-07-15 03:31] LABS: Blood Urea Nitrogen 21 mg/dl (7-17); Calcium 8.1 mg/dl (8.4-10.2); Carbon Dioxide 26 mmol/L (22-30); Chloride 105 mmol/L (98-107); Estimated Creatinine Clearance 85 ml/min; Glucose 127 mg/dl (70-99); Magnesium 2.3 mg/dl (1.6-2.3); Potassium 4.2 mmol/L (3.5-5.1); Sodium 135 mmol/L (135-145); eGFR > 60.00
--- NOTE | 2025-07-15 04:15 | PTCARENOTE ---
Pt remained in AF. 2nd Amiodarone bolus of 150 mg IV given at 0323. Pt briefly converted to SR , rate 60's from 7118-4337, then from 9194-8070. Then pt back into AF with occasional PVCs. Of note, cuff BP is greater than L radial A-line BP. Pt
repositioned onto R side.
[2025-07-15] MEDS: CORDARONE 259 MG IV ×2 (05:11→15:23)
[2025-07-15 05:33] LABS: Glucose - Point of Care 106 mg/dl (70-99)
[2025-07-15] MEDS: CALCIUM GLUCONATE 130 MG IV (05:49)
[2025-07-15] MEDS: TYLENOL 975 MG PO ×3 (05:50→22:43)
--- NOTE | 2025-07-15 06:51 | W.PN.ANS.POP ---
Anesthesia Post Operative
- Anesthesia Post Op Note
Vital Signs Stable-See Nursing Note: Yes
Airway Patent: Yes
Adequate Pain Control: Yes
Change in Mental Status: No
Current Postoperative Nausea & Vomiting: No
Anesthesia Complications: No
General Anesthetic Recall: No
Unplanned Admission: No
Post Op Hydration Adequate: Yes
[2025-07-15 06:53] LABS: Glucose - Point of Care 93 mg/dl (70-99)
--- NOTE | 2025-07-15 07:15 | PTCARENOTE ---
Pt CXR completed. Pt given CHG bath and bed weight obtained. Amiodarone gtt at 1 mg/min started per protocol at 0530. CaGluconate 3 GM iv given as ordered. Pt remains in AF with occasional PVCs. Last CI 2.23 at 0530. Dobutamine gtt remains at 1
mcg/kg/min. Sats 98% on 4L/NC. Report to RHIANNON Condon. Walking rounds done.
--- NOTE | 2025-07-15 07:27 | W.PN.INTV ---
Today's Communication / Plan
Recommendations
Wean dobutamine
Wean insulin drip
Supplemental oxygen as needed
Monitor chest tube output
Patient likely delined after dobutamine and insulin drip discontinuation-human resources services specialist will sign off
Outpatient pulmonary/sleep disorders follow-up
Assessment
-
75-year-old non-smoking obese female with a history of hypertension, hyperlipidemia, diabetes, allergies, ERICKA on CPAP, and nonrheumatic mitral valve stenosis, hypertrophic obstructive cardiomyopathy who is previously status post TAVR underwent
complete resection mitral valve leaflet and placement of [place]-Som neocords and mitral valve replacement using 27 mm bioprosthesis-human resources services specialist consulted for postoperative ventilator/critical care management 07/13/2025.
Nonrheumatic mitral valve stenosis
s/p complete resection of mitral valve leaflets, placement of [place]-Som needle cords to anterior and posterior medial papillary muscle and mitral valve replacement using 27 mm bioprosthesis-Dr. Guzman 07/13/2025
Mild anemia-hemoglobin 10.5
Hyperglycemia
Conditions present prior to admission:
Hypertension.
Hyperlipidemia.
Mitral stenosis.
History of TAVR.
Obesity.
ERICKA on CPAP.
Incidental 4 mm subpleural nodule lateral aspect right middle lobe on CT 06/25/2025
No allergies.
Diabetes.
Thalassemia.
Foot surgery. Uterine artery embolization. Bunionectomy. Left TKA.
Plan
Respiratory status stable
Wean FiO2-room air 97% saturation
Encourage incentive spirometry
Increase activity
Aspiration precautions
Pulmonary artery catheter and arterial line will be removed
Pressors have been weaned
Continue to monitor chest tube output
Follow hemoglobin
Continue to follow platelet count and coags
Transfuse blood product as needed
CT surgery following chest tubes as well
Dobutamine continues-will likely be discontinued today
Norepinephrine weaned off
Follow blood sugar
Insulin supplementation continues as needed
Early nutrition
Early mobilization
DVT prophylaxis
She is on CPAP for obstructive sleep apnea-I checked [facility] records and she is not a local patient
She reports trying CPAP for 2 years-last tried 2 years ago, was intolerant, has lost significant weight and is 'snoring less', alternative treatments reviewed and recommended follow-up
CT chest 06/2026 to follow-up on 4 mm nodule was recommended
Patient's insulin and dobutamine drip will likely be discontinued today the patient will be d-elined transfer to telemetry-human resources services specialist will sign off
Reviewed the patient's pertinent medical records including radiographs, microbiology, laboratory evaluations, and discussion with primary team and critical care nursing.
Diagnostic data:
Chest x-ray 10/28/2023-cardiomegaly and possible mild interstitial edema
Chest x-ray 07/13/2025-endotracheal tube 3 cm above lucero, minimal basilar atelectasis on the right
CT angiography 06/29/2025-transcatheter aortic valve replacement, mild to moderate coronary artery calcifications, 4 mm subpleural nodule lateral aspect right middle lobe
Echocardiogram 01/23/2025-EF 76%, moderate to severe asymmetrical septal hypertrophy, severe mitral stenosis status post TAVR
Cardiac catheterization 07/03/2025-right heart catheterization-RA 17, PA 66/29, PCWP-33, cardiac index 2.45, no significant aortic valve gradient, single branch vessel diagonal obstructive CAD and dominant right-sided system
Subjective Dataa
Subjective Data
Date of Service:
Date of Service: July 15, 2025
Chief Complaint: Recreation Engineer Follow Up and Pulmonary Follow Up
Subjective:
Feels better, no complaints of shortness of breath, chest pain, abdominal pain
Review of Systems
General: Other ( per HPI)
Objective Data
Data Reviewed
Vital Signs / I&O / Oxygen:
Vital Signs
Temp Pulse Resp BP Pulse Ox
99.1 F 102 11 121/63 95
07/15/25 06:00 07/15/25 06:45 07/15/25 06:45 07/15/25 06:45 07/15/25 06:45
Intake and Output
07/14/25 07/15/25 07/16/25
06:59 06:59 06:59
Intake Total 2780.0 / 2806.3 1490.3 / 1490.3
Output Total 1120 / 1150 1030 / 1030
Balance 1660.0 / 1656.3 460.3 / 460.3
SaO2 [CPAP] 95
SaO2 [SIMV] 95
SaO2 95
Nasal Cannula flow liters per 4
minute
Physical Exam
General: Respiratory Distress (n) and Comfortable
HEENT: Normocephalic, Anicteric and Moist Mucous Membranes
Respiratory: Wheeze (n), Crackles (Rare basilar), Rhonchi (n), Non-Labored Respirations, Accessory Resp Muscle Use (n) and Stridor (n)
GI: Soft, Non Distended and Non Tender
Neurology: Awake, Alert and No Motor Deficits
Skin: Warm, Good Color, Cyanosis (n), Jaundice (n) and Rash (n)
Labs/Micro/Reports
Lab Data
07/15/25 02:53
07/15/25 02:53
Microbiology
07/13/25 07:10 Urine Urine Culture - Preliminary
Gram negative bacilli
--- NOTE | 2025-07-15 08:50 | PTCARENOTE ---
Assumed care of patient at 0700. Pt is awake, alert, and oriented. No complaints of pain at this time. Pt converted from Afib to SR at 0721. HR 74. BP 134/52 MAP 76. PA 60's/20's. CVP 15. CO 5.43, CI 2.54, SVR 884. Epicardial AV wires in place.
Pulse oximetry 96% on 2L nasal cannula. Mediastinal chest tubes x2 and left/right pleural chest tubes to -20 suction, no sign of air leak or crepitus, drainage serosanguineous. Pt with no complaints of nausea. Leo catheter remains in place
draining yellow urine, Leo care completed. Midsternal incision approximated with surgical adhesive. Right IJ cordis in place with swan at 50cm. Left radial Berta intact. Pt remains on Dobutamine 1mcg/kg/min, Amio 1mg/min, and insulin per glycemic
protocol.
[2025-07-15] MEDS: MAGNESIUM OXIDE 400 MG PO ×2 (08:56→22:42)
[2025-07-15] MEDS: BACTROBAN 2% OINTMENT 1 APPLIC NASAL ×2 (08:56→22:41)
[2025-07-15] MEDS: SENOKOT 8.6 MG PO ×2 (08:56→22:42)
[2025-07-15] MEDS: LOW STRENGTH ASPIRIN 81 MG PO (08:56)
[2025-07-15] MEDS: PROTONIX 40 MG PO (08:56)
[2025-07-15] MEDS: LIDOCAINE 4% PATCH TOPICAL ×2 (08:56→09:32)
[2025-07-15 09:18] LABS: Glucose - Point of Care 141 mg/dl (70-99)
[2025-07-15] MEDS: LASIX 20 MG IV (09:46)
[2025-07-15] MEDS: NSS 500 IV (10:08)
[2025-07-15] MEDS: NOVOLOG FLEXPEN 4 UNITS SC ×2 (10:29→13:27)
[2025-07-15 10:30] LABS: Glucose - Point of Care 161 mg/dl (70-99)
--- NOTE | 2025-07-15 11:26 | PTCARENOTE ---
20mg IV Lasix given this AM. Chest tubes x4 d/c'd per order. MVO2 58.2, discussed with CT ZAK, Telma. Dobutamine now off. Pt remains SR with HR 66. BP 122/44 MAP 66. CO 5.50, CI 2.57, SVR 858.
[2025-07-15 13:25] LABS: Glucose - Point of Care 134 mg/dl (70-99)
[2025-07-15 14:52] LABS: Glucose - Point of Care 198 mg/dl (70-99)
[2025-07-15] MEDS: FERRLECIT 110 MG IV (14:57)
--- NOTE | 2025-07-15 15:39 | PTCARENOTE ---
Pt remains SR with HR 60's. BP 131/46 MAP 69. CO 5.03, CI 2.35, SVR 1065. Reviewed with CT ZAK, Telma. Pt de-lined per order. Insulin gtt d/c'd. Pt OOB for several hours, now resting comfortably in bed with call redmond within reach. Pt remains on
Amio gtt 0.5mg/min.
--- NOTE | 2025-07-15 17:23 | PTCARENOTE ---
1645 pt back into Afib with HR 90's. CT ZAK Telma aware. Remains on Amio gtt. Leo d/c'd at 1715, due to void by 1115. Pt currently sitting on side of bed.
--- NOTE | 2025-07-15 17:30 | PTCARENOTE ---
1645 pt back into Afib with HR 90's. CT ZAK Telma aware. Remains on Amio gtt. Leo d/c'd at 1715, due to void by 2315. Pt currently sitting on side of bed.
[2025-07-15] MEDS: NOVOLOG FLEXPEN-MODERATE RESISTANCE 1 UNITS SC (17:50)
[2025-07-15 17:54] LABS: Glucose - Point of Care 195 mg/dl (70-99)
--- NOTE | 2025-07-15 22:15 | PTCARENOTE ---
Report from RHIANNON Condon. Pt assessed, VS done. Awake, alert, oriented x 4. Speech clear. On 2L, sats 92-93%. Increased to 3L/NC. Sats 95%. BBS present. Decreased to B bases. CDB encouraged. Audible heart tones. Pt in AF with occasional conversion in
and out of SB, rate 50's. Normotensive. Amiodarone at 0.5 mg/min. Palpable pulses. For edema, wound assessments, see flowsheets. AV wires attached to temp pacer. Surgibra intact. Belly soft, nontender, obese. Normoactive bs x 4. Due to void. Pt
without urge. Pt bladder scanned for 33 mls. Ed, PA made aware. Will wait till 0300 to rescan bladder. Ongoing plan of care. HS glucose 182. Scheduled meds given.
[2025-07-15] MEDS: REMOVE LIDOCAINE PATCH 1 PATCH REMOVE (22:42)
[2025-07-15] MEDS: KCL 20 MEQ PO (22:43)
[2025-07-15] MEDS: LIPITOR 20 MG PO (22:43)
[2025-07-15] MEDS: TOPROL XL 25 MG PO (22:44)
[2025-07-15 23:03] LABS: Glucose - Point of Care 182 mg/dl (70-99)
[2025-07-15] MEDS: LANTUS 0.1 UNITS SC (23:12)
[2025-07-16] VITALS (16 sets, daily range): BP systolic 99–129; BP diastolic 40–86; PULSE 100; O2SAT 96–97; BMI 39.0
--- NOTE | 2025-07-16 01:12 | W.PN.CT ---
Today's Communication / Plan
-
Plan:
-No major issues overnight. Hemodynamically and neurologically intact
-Weaned off Dobutamine yesterday 07/15/25, and delined. Transferred to [facility] phase
-Has been in and out a-fib since the AM of 07/15/25. On amiodarone gtt. Will discuss Anticoagulation ([id number]: 5)
-No longer requiring A/V pacing for postop sinus bradycardia in the 40's
-BB has been resumed (Toprol 25 mg BID), also on PO Amiodarone
-Monitor u/o following berry removal yesterday, voided 225 mL this AM
-Maintain temporary PW now that she's in A-fib, will likely need to cut before d/c home
-Holding BB while on dobutamine. Placed PO Amiodarone on hold while on Amiodarone gtt
-Monitor hyponatremia, 134. Fluid restriction, cont. diuresis and replete electrolytes
-Maintain cordis another day for medication administration/phlebotomy
-Transitioned off insulin gtt yesterday per protocol, diabetic with A1C of 6.9, Diabetes education/management to see
-Encourage use of IS
-Wean off O2 as tolerated
-OOB into chair/Ambulate
-Home in 1-2 days
Assessment / Plan
-
Assessment:
-S/P Standard sternotomy/Complete resection of mitral valve leaflets as well as subvalvular apparatus down to level the papillary muscle heads via transseptal approach/ Placement of 2 x CV 3 [place]-Som neochords to both the anterior and posterior
medial papillary muscle heads for left ventricular support and mitral valve replacement using a 27 mm bioprosthesis/ Patch repair of annulus using bovine pericardium post extensive ultrasonic debridement of mitral annular calcification (using
CUSA)/Exploration of aorta to evaluate TAVR valve, debridement of fibrinous veil across the left main cells described on left heart cath, by Dr. Guzman, 07/13/25, pod#3
-Severe mitral valve stenosis, secondary to dense mitral annular calcification and calcific disease of the leaflets
-Previous aortic valve stenosis status post TAVR, 03/16/2023 @ [facility]
-LVEF 70-75%
-Severe pulmonary hypertension
-Hyperlipidemia
-Hypertension
-Type 2 diabetes (A1c 6.9)
-ERICKA (noncompliant with CPAP @ home)
-Class 2 obesity (BMI 36.4)
-Thalassemia minor
-Bradycardia
-S/P L TKA, 10/27/23
-S/p Uterine artery embolization
-S/p Vaginal septum removal
-S/P Bunionectomy
-Acute intraop/postop blood loss/Anemia (stable without transfusion)
-Acute postop atelectasis
-Acute postop hypovolemia with subsequent hypervolemia
-Acute postop bradycardia in 40's requiring A/V pacing in 70's
-Acute postop a-fib with RVR 130-140's
-Acute postop hyponatremia, 134
Discussed patient care with: Cardiology, Nursing, Respiratory Therapy, Pharmacy and Care Team
Subjective
Procedure
S/P Standard sternotomy/Complete resection of mitral valve leaflets as well as subvalvular apparatus down to level the papillary muscle heads via transseptal approach/ Placement of 2 x CV 3 [place]-Som neochords to both the anterior and posterior
medial papillary muscle heads for left ventricular support and mitral valve replacement using a 27 mm bioprosthesis/ Patch repair of annulus using bovine pericardium post extensive ultrasonic debridement of mitral annular calcification (using
CUSA)/Exploration of aorta to evaluate TAVR valve, debridement of fibrinous veil across the left main cells described on left heart cath, by Dr. Guzman, 07/13/25,
-
Date of Service: July 16, 2025
Pt c/o mild incisional pain, otherwise feels well
Objective Data
-
PT 17.9 Sec (11.4-14.6) H 07/13/25 12:19
INR 1.45 07/13/25 12:19
APTT 32.6 Sec (23.4-35.0) 07/13/25 12:19
Vital Signs
Vital Signs
Temp Pulse Resp BP Pulse Ox
100.4 F H 95 16 119/61 95
07/15/25 22:25 07/15/25 22:44 07/15/25 16:16 07/15/25 22:44 07/15/25 22:30
CT Intake/Output/Weight
07/15/25 07/15/25 07/16/25
06:59 18:59 06:59
Intake Total 718.7 / 1545.7 711.1 / 711.1
Output Total 500 / 1070 1075 / 1075
Balance 218.7 / 475.7 -363.9 / -363.9
SaO2: 95 (3L)
Physical Exam
-
General: Awake, Oriented and AOx3
Cardiovascular: Regular rate & rhythm (in and out a-fib postop), No Murmurs, No Rub and No Gallop
Respiratory: Decreased Breath Sounds (at bases, otherwise clear)
Sternum: Stable
Incision: Clean, Dry, Intact and Dressing Intact
Extremities: Edema +1
Data Reviewed
-
Lab Results: Results Reviewed
Medications: Active Meds Reviewed
Chest X-Ray: Report Reviewed and Image Reviewed
ECG: Report Reviewed and Image Reviewed
--- NOTE | 2025-07-16 02:00 | PTCARENOTE ---
Pt briefly went into SB , rate 50's. Pacer was turned on at ~ 0015: DDD, rate 45, mA 10, A sens 0.4, V sens 0.8. Inappropriate pacer spikes. PA aware. New settings per PA: rate 35, mA 5, sens settings same.
Pt helped to BSC to void 225 mls clear, yellow urine. Pt then helped back to bed. C/O) dizziness and mild TOUSSAINT when getting back to bed. O2 increased to 4L/NC/ Sat 95%. Went back into AF, rate 90-100's. Normotensive, Pt resting comfortably. Labs
drawn and sent.
[2025-07-16 04:00] LABS: Hematocrit 27.2 % (37.0-47.0); Hemoglobin 8.4 g/dL (12.0-16.0); Mean Corp Hgb Conc. 30.9 g/dL (33.0-37.0); Mean Corpuscular Volume 76.2 fL (81.0-99.0); Platelet Count 143 10^3/uL (130-400); Red Cell Dist. Width 15.1 % (11.5-14.5)
[2025-07-16 04:18] LABS: Blood Urea Nitrogen 17 mg/dl (7-17); Calcium 8.3 mg/dl (8.4-10.2); Carbon Dioxide 30 mmol/L (22-30); Chloride 100 mmol/L (98-107); Estimated Creatinine Clearance 100 ml/min; Glucose 190 mg/dl (70-99); Magnesium 2.2 mg/dl (1.6-2.3); Potassium 4.4 mmol/L (3.5-5.1); Sodium 134 mmol/L (135-145); eGFR > 60.00
--- NOTE | 2025-07-16 06:00 | PTCARENOTE ---
Pt helped up to be weighed, then to recliner chair.
[2025-07-16] MEDS: CALCIUM GLUCONATE 100 IV (06:49)
[2025-07-16] MEDS: CORDARONE 259 MG IV (06:49)
[2025-07-16] MEDS: TYLENOL 975 MG PO ×3 (06:50→22:10)
--- NOTE | 2025-07-16 07:15 | PTCARENOTE ---
CaGluc 2 GM IV given as ordered. Report to [place]. Walking rounds done.
--- NOTE | 2025-07-16 07:57 | W.PN.CD ---
Today's Communication / Plan
-
monitor rhythm on tele
Eliquis 5mg po bid when ok with CT Surgery
Continue to encourage ICS
Impression / Plan
-
Primary Call Center Recruiter: Dr Zhong
Severe MR - s/p MVR 07/13/25.
-doing nicely now off gtt
- management per CT surgery
s/p TAVR - stable
PAF: seen multiple times since 07/15/25
-discussed new dx and implications with her, she is agreeable to doac
rate controlled on bb and amio
[id number]: (age-2, Dm-1, HTN-1, Female-1) 5, recommend anticoagulation when ok with CT Surgery-d/w CTPA
Anemia - acute post op
-stable
DM - as per primary team
Obesity - would benefit from weight loss
Physical Exam
Vital Signs/Labs
Vital Signs
Temp Pulse Resp BP Pulse Ox
98.6 F 84 16 127/66 96
07/16/25 02:23 07/16/25 06:30 07/16/25 00:13 07/16/25 05:30 07/16/25 05:30
07/15/25 07/16/25 07/17/25
06:59 06:59 06:59
Actual Weight 245 lb 2.464 oz 245 lb 5.992 oz
07/16/25 03:02
07/16/25 03:02
PT 17.9 Sec (11.4-14.6) H 07/13/25 12:19
INR 1.45 07/13/25 12:19
APTT 32.6 Sec (23.4-35.0) 07/13/25 12:19
Magnesium 2.2 mg/dl (1.6-2.3) 07/16/25 03:02
Physical Exam
Constitutional: No acute distress
Cardiovascular: Pedal edema is absent, JVD pressure is normal, Systolic murmur absent, Diastolic murmur absent and Rhythm/rate is irregular
Respiratory: Respiratory effort normal, Lungs clear to auscul., Wheeze Absent, Crackles Absent and Rhonchi Absent
Neuro/Psych: AO x 3
Data Reviewed
-
Date of Service: July 16, 2025
[2025-07-16] MEDS: PACERONE 200 MG PO (08:28)
[2025-07-16] MEDS: SENOKOT 8.6 MG PO ×2 (08:28→20:41)
[2025-07-16] MEDS: MAGNESIUM OXIDE 400 MG PO ×2 (08:28→20:41)
[2025-07-16] MEDS: TOPROL XL 25 MG PO (08:28)
[2025-07-16] MEDS: LOW STRENGTH ASPIRIN 81 MG PO (08:28)
[2025-07-16] MEDS: PROTONIX 40 MG PO (08:29)
[2025-07-16] MEDS: LASIX 40 MG IV (08:29)
[2025-07-16] MEDS: GLUCOTROL XL (EXTENDED RELEASE) 10 MG PO (08:29)
[2025-07-16] MEDS: LIDOCAINE 4% PATCH 1 PATCH TOPICAL (08:29)
[2025-07-16] MEDS: BACTROBAN 2% OINTMENT 1 APPLIC NASAL ×2 (08:29→20:41)
--- NOTE | 2025-07-16 09:19 | PTCARENOTE ---
assumed care of pt from previous shift RN, afib on tele, VSS, + peripheral pulses, +2 edema to bilateral lower extremities. AV wires set to DDD 35/5/5. Lungs clr, +TOUSSAINT, pt weaned to RA, coughing and deep breathing encouraged. +bs, tolerating PO
intake, voids yellow. MSI approximated w surgical glue intact, cordis w amiodarone infusing, PIV flushes easily. plan of care reviewed w the pt and questions encouraged.
[2025-07-16 09:23] LABS: Glucose - Point of Care 199 mg/dl (70-99)
[2025-07-16] MEDS: NOVOLOG FLEXPEN-MODERATE RESISTANCE 1 UNITS SC ×2 (09:25→18:43)
--- NOTE | 2025-07-16 11:32 | CM ---
Reviewed chart. Met with and Mrs. Hudson to review discharge plans. She states she is feeling okay and making steady progress. She states prior to admission she resides with her spouse in a two story home without any steps to enter. She
states she only goes up to the second floor to sleep and shower once a day. She states she has a full flight of steps to get to bedroom/full bathroom. She states she has a powder room on the first floor. She states prior to admission she was
independent with ambulation and adls. She states she has a waker, single point cane, shower chair and bedside commode at home. She states she has a prescription plan. She states her spouse will be home to assist in her care if needed. We reviewed
a home visit by the Transitional Care Nurse. She is agreeable to a home visit. Medical work-up in progress. The discharge plan is to return home with her spouse and a home visit by the Transitional Care Nurse when medically stable. .
[2025-07-16] MEDS: ELIQUIS 5 MG PO ×2 (11:45→20:41)
[2025-07-16] MEDS: NSS IV (11:46)
[2025-07-16] MEDS: CORDARONE 103 MG IV (12:06)
--- NOTE | 2025-07-16 12:24 | PTCARENOTE ---
pt converted w SR w bigeminy. Amiodarone bolus administered as ordered
[2025-07-16] MEDS: FERRLECIT 110 MG IV (13:22)
[2025-07-16 13:26] LABS: Glucose - Point of Care 272 mg/dl (70-99)
[2025-07-16] MEDS: NOVOLOG FLEXPEN-MODERATE RESISTANCE 5 UNITS SC (13:27)
[2025-07-16] MEDS: ZOFRAN 4 MG IV (13:53)
--- NOTE | 2025-07-16 13:58 | PTCARENOTE ---
pt c/o feeing dizzy and nauseous while on the toilet. Pt pale and diaphoretic. Assisted from toilet to recliner, bp 109/70, hr 55. CT ZAK and Dr. Guzman made aware. Pacer settings changed to DDD 76//5.
[2025-07-16 18:27] LABS: Glucose - Point of Care 178 mg/dl (70-99)
[2025-07-16] MEDS: NOVOLOG FLEXPEN 3 UNITS SC (18:43)
[2025-07-16] MEDS: REMOVE LIDOCAINE PATCH REMOVE (20:44)
[2025-07-16] MEDS: TOPROL XL PO (21:28)
[2025-07-16 22:10] LABS: Glucose - Point of Care 183 mg/dl (70-99)
[2025-07-16] MEDS: LIPITOR 20 MG PO (22:10)
[2025-07-16] MEDS: LANTUS 0.1 UNITS SC (22:10)
[2025-07-16] MEDS: KCL 20 MEQ PO (22:10)
--- NOTE | 2025-07-16 23:30 | PTCARENOTE ---
assessment remains unchanged.
[2025-07-17] VITALS (13 sets, daily range): BP systolic 104–148; BP diastolic 41–82; PULSE 63–72; BMI 38.6
--- NOTE | 2025-07-17 03:20 | PTCARENOTE ---
no acute changes. VSS. AM labs collected and sent.
[2025-07-17 03:45] LABS: Hematocrit 30.2 % (37.0-47.0); Hemoglobin 9.2 g/dL (12.0-16.0); Mean Corp Hgb Conc. 30.5 g/dL (33.0-37.0); Mean Corpuscular Volume 78.2 fL (81.0-99.0); Platelet Count 189 10^3/uL (130-400); Red Cell Dist. Width 15.0 % (11.5-14.5)
[2025-07-17 03:55] LABS: Blood Urea Nitrogen 16 mg/dl (7-17); Calcium 9.0 mg/dl (8.4-10.2); Chloride 102 mmol/L (98-107); Estimated Creatinine Clearance 100 ml/min; Glucose 117 mg/dl (70-99); Magnesium 2.2 mg/dl (1.6-2.3); Potassium 4.3 mmol/L (3.5-5.1); Sodium 136 mmol/L (135-145); eGFR > 60.00
[2025-07-17 04:04] LABS: Carbon Dioxide 32 mmol/L (22-30)
--- NOTE | 2025-07-17 04:24 | W.PN.CT ---
Today's Communication / Plan
-
Plan:
-No major issues overnight. Hemodynamically and neurologically intact
-Weaned off Dobutamine on 07/15/25, and delined. Transferred to [facility] phase
-Has been in and out a-fib since the AM of 07/15/25. On amiodarone gtt. Will discuss Anticoagulation ([id number]: 5)
-Required A/V pacing immediately postop for sinus bradycardia in the 40's
-Developed ventricular bigeminy in the 50's while ambulating to bathroom and required A/V pacing, currently back in rapid a-fib
-BB and Amiodarone placed on hold given bigeminy rhythm in the 50's. Will ask EP to evaluate
-Maintain temporary PW, will likely cut before d/c home
-Hyponatremia has resolved
-Maintain cordis another day for medication administration/phlebotomy
-Diabetic with A1C of 6.9, Diabetes education/management following
-Encourage use of IS
-Wean off O2 as tolerated
-OOB into chair/Ambulate
-Home in 1-2 days
Assessment / Plan
-
Assessment:
-S/P Standard sternotomy/Complete resection of mitral valve leaflets as well as subvalvular apparatus down to level the papillary muscle heads via transseptal approach/ Placement of 2 x CV 3 [place]-Som neochords to both the anterior and posterior
medial papillary muscle heads for left ventricular support and mitral valve replacement using a 27 mm bioprosthesis/ Patch repair of annulus using bovine pericardium post extensive ultrasonic debridement of mitral annular calcification (using
CUSA)/Exploration of aorta to evaluate TAVR valve, debridement of fibrinous veil across the left main cells described on left heart cath, by Dr. Guzman, 07/13/25, pod#4
-Severe mitral valve stenosis, secondary to dense mitral annular calcification and calcific disease of the leaflets
-Previous aortic valve stenosis status post TAVR, 03/16/2023 @ [facility]
-LVEF 70-75%
-Severe pulmonary hypertension
-Hyperlipidemia
-Hypertension
-Type 2 diabetes (A1c 6.9)
-ERICKA (noncompliant with CPAP @ home)
-Class 2 obesity (BMI 36.4)
-Thalassemia minor
-Bradycardia
-S/P L TKA, 10/27/23
-S/p Uterine artery embolization
-S/p Vaginal septum removal
-S/P Bunionectomy
-Acute intraop/postop blood loss/Anemia (stable without transfusion)
-Acute postop atelectasis
-Acute postop hypovolemia with subsequent hypervolemia
-Acute postop bradycardia in 40's requiring A/V pacing in 70's
-Acute postop a-fib with RVR 130-140's
-Acute postop hyponatremia, 134
-Acute postop ventricular bigeminy in the 50's
Discussed patient care with: Cardiology, Nursing, Respiratory Therapy, Pharmacy and Care Team
Subjective
Procedure
S/P Standard sternotomy/Complete resection of mitral valve leaflets as well as subvalvular apparatus down to level the papillary muscle heads via transseptal approach/ Placement of 2 x CV 3 [place]-Som neochords to both the anterior and posterior
medial papillary muscle heads for left ventricular support and mitral valve replacement using a 27 mm bioprosthesis/ Patch repair of annulus using bovine pericardium post extensive ultrasonic debridement of mitral annular calcification (using
CUSA)/Exploration of aorta to evaluate TAVR valve, debridement of fibrinous veil across the left main cells described on left heart cath, by Dr. Guzman, 07/13/25,
-
Date of Service: July 17, 2025
pt c/o mild incisional pain, otherwise feels well
Objective Data
-
Lab Results
07/17/25 03:21
07/17/25 03:21
PT 17.9 Sec (11.4-14.6) H 07/13/25 12:19
INR 1.45 07/13/25 12:19
APTT 32.6 Sec (23.4-35.0) 07/13/25 12:19
Vital Signs
Vital Signs
Temp Pulse Resp BP Pulse Ox
98 F 80 18 138/82 98
07/17/25 03:24 07/17/25 03:24 07/17/25 03:24 07/17/25 03:24 07/17/25 03:24
CT Intake/Output/Weight
07/16/25 07/16/25 07/17/25
06:59 18:59 06:59
Intake Total 320.4 / 1158.2 253.4 / 343.4 90 / 343.4
Output Total 225 / 1600 1850 / 3075 1225 / 3075
Balance 95.4 / -441.8 -1596.6 / -2731.6 -1135 / -2731.6
SaO2: 98 (2L)
Physical Exam
-
General: Awake, Oriented and AOx3
Cardiovascular: Regular rate & rhythm, No Murmurs, No Rub and No Gallop
Respiratory: Decreased Breath Sounds (at bases, otherwise clear)
Sternum: Stable
Incision: Clean, Dry, Intact and Dressing Intact
Extremities: Edema +1
Data Reviewed
-
Lab Results: Results Reviewed
Medications: Active Meds Reviewed
Chest X-Ray: Report Reviewed and Image Reviewed
ECG: Report Reviewed and Image Reviewed
[2025-07-17] MEDS: TYLENOL 975 MG PO ×2 (06:07→20:49)
[2025-07-17 08:33] LABS: Glucose - Point of Care 148 mg/dl (70-99)
--- NOTE | 2025-07-17 08:49 | PTCARENOTE ---
assumed care of pt from previous shift RN, afib on tele w HR 80, insulated epicardial pacing wires, + peripheral pulses, +1 edema to bilateral lower extremities. Lungs diminished, pox 94% on RA, coughing and deep breathing encouraged. +bs,
tolerating PO intake, voids spontaneously. Cordis to be removed, PIV flushes easily. plan of care reviewed and questions encouraged.
[2025-07-17] MEDS: MAGNESIUM OXIDE 400 MG PO ×2 (09:04→19:55)
[2025-07-17] MEDS: LOW STRENGTH ASPIRIN 81 MG PO (09:04)
[2025-07-17] MEDS: PROTONIX 40 MG PO (09:04)
[2025-07-17] MEDS: GLUCOTROL XL (EXTENDED RELEASE) 10 MG PO (09:04)
[2025-07-17] MEDS: ELIQUIS 5 MG PO ×2 (09:05→19:55)
[2025-07-17] MEDS: SENOKOT 8.6 MG PO ×2 (09:05→19:55)
[2025-07-17] MEDS: NOVOLOG FLEXPEN-MODERATE RESISTANCE SC ×2 (09:05→16:48)
[2025-07-17] MEDS: BACTROBAN 2% OINTMENT 1 APPLIC NASAL (09:05)
[2025-07-17] MEDS: LIDOCAINE 4% PATCH TOPICAL (09:05)
[2025-07-17] MEDS: NOVOLOG FLEXPEN 3 UNITS SC ×3 (09:05→16:48)
[2025-07-17] MEDS: LASIX 40 MG IV (11:20)
[2025-07-17] MEDS: FARXIGA 10 MG PO (11:21)
[2025-07-17] MEDS: NSS IV (11:21)
--- NOTE | 2025-07-17 12:12 | PTCARENOTE ---
pt assisted from chair to bed, cordis removed without incident.
--- NOTE | 2025-07-17 12:37 | PN.DE.MGMTRT ---
Insulin Management
- -
07/17/2025: Diabetes Management Consult Follow up
75 year old female electively admitted 07/13/25 for mitral valve replacement due to severe mitral stenosis in setting of prior TAVR. PMH: HTN, HLD, AVS s/p TAVR in 2022, Severe pulmonary HTN, ERICKA on CPAP, T2DM, Morbidly obesity. Prior to admission
was taking Glipizide 10mg daily and Mounjaro 15 mg weekly on wed. A1C 6.9%, Cr 0.6, eGFR >60
POD 4 s/p mitral valve replacement. Patient is awake alert and oriented out of bed in chair able to discuss diabetes care. at bedside and supportive. Patient states she has had diabetes ~ 15 years; sees endocrime @ [facility], uses
[facility]. Yesterday patient received glipizide xr 10 mg daily, lantus 10 units @ hs and novolog 3 units AC. Glucose range 178 to 272.
Discussed with patient importance of glucose control post op. She is in agreement to start Farxiga 10 mg daily. Description of action of medication and possible side effects reviewed.
Discussed with nurse
Will follow.
Diabetes History
- -
Type of Diabetes: 2
Pre-Admission Diabetes Regimen
07/17/25
03:21
Creatinine 0.6
Lab Results
Hemoglobin A1c 6.9 % (4.0-5.9) H 07/06/25 08:19
Insulin Pump Settings
IP Diabetes Regimen
07/16/25 07/16/25 07/16/25
13:25 18:26 22:09
Glucose
POC Glucose 272 H 178 H 183 H
07/17/25 07/17/25
03:21 08:32
Glucose 117 H
POC Glucose 148 H
Meal type: Breakfast
Patient Education
--- NOTE | 2025-07-17 13:26 | W.PN.CD ---
Today's Communication / Plan
-
diuresis
moving toward discuarge
Impression / Plan
-
Primary Geospatial Information Scientist: Dr Zhong
Severe MR - s/p MVR 07/13/25.
-doing nicely now off gtt
-management per CT surgery
-diuresis
s/p TAVR - stable, debridement of aortic valve tissue performed during sugery
PAF: seen multiple times since 07/15/25
-back in SR today
-rate controlled on bb and amio
-[id number]: (age-2, Dm-1, HTN-1, Female-1) 5, recommend anticoagulation when ok with CT Surgery-d/w CTPA
Anemia - acute post op
-stable
DM - as per primary team
Obesity - would benefit from weight loss
Physical Exam
Vital Signs/Labs
Vital Signs
Temp Pulse Resp BP Pulse Ox
36.8 C 69 18 113/59 94
07/17/25 09:02 07/17/25 10:00 07/17/25 09:02 07/17/25 09:02 07/17/25 10:56
07/16/25 07/17/25 07/18/25
06:59 06:59 06:59
Actual Weight 111.3 kg 110 kg
07/17/25 03:21
07/17/25 03:21
PT 17.9 Sec (11.4-14.6) H 07/13/25 12:19
INR 1.45 07/13/25 12:19
APTT 32.6 Sec (23.4-35.0) 07/13/25 12:19
Magnesium 2.2 mg/dl (1.6-2.3) 07/17/25 03:21
Physical Exam
Constitutional: Comfortable
Cardiovascular: Rhythm & rate is regular
Respiratory: Respiratory effort normal
Neuro/Psych: AO x 3
Data Reviewed
-
Date of Service: July 17, 2025
Medical Decision Making: Reviewed Test Results
Labs: Labs Reviewed by me
[2025-07-17 13:32] LABS: Glucose - Point of Care 169 mg/dl (70-99)
[2025-07-17] MEDS: NOVOLOG FLEXPEN-MODERATE RESISTANCE 1 UNITS SC (13:32)
--- NOTE | 2025-07-17 14:51 | CM ---
Reviewed chart. Met with Mr. priscilla Hudson to review discharge plans. She states she is feeling better. She states she did not ambulate today. Prior to admission she resides with her spouse in a two story home without any steps to enter. She
states she only goes up to the second floor to sleep and shower once a day. She states she has a full flight of steps to get to bedroom/full bathroom. She states she has a powder room on the first floor. She states prior to admission she was
independent with ambulation and adls. She states she has a waker, single point cane, shower chair and bedside commode at home. She states she has a prescription plan. She states her spouse will be home to assist in her care if needed. We reviewed
a home visit by the Transitional Care Nurse. She is agreeable to a home visit. Medical work-up in progress. The discharge plan is to return home with her spouse and a home visit by the Transitional Care Nurse when medically stable. .
[2025-07-17] MEDS: TYLENOL PO (15:12)
[2025-07-17 16:49] LABS: Glucose - Point of Care 144 mg/dl (70-99)
--- NOTE | 2025-07-17 19:45 | PTCARENOTE ---
assumed care of pt from previous RN. pt A&Ox4, resting in chair at time of assessment. SR on tele-monitor. temp epicardial A/V wires insulated. POX 94% on RA. abd s/n, round, obese. +BS. pt w/ occasional stress incontinence. void clear, yellow
colored urine. all surgical sites stable, CDI. PIV intact. see worklist for complete nursing assessment, interventions, VS, and I&Os.
[2025-07-17] MEDS: REMOVE LIDOCAINE PATCH REMOVE (19:55)
[2025-07-17] MEDS: KCL 20 MEQ PO (20:48)
[2025-07-17] MEDS: LIPITOR 20 MG PO (20:53)
[2025-07-17 20:57] LABS: Glucose - Point of Care 139 mg/dl (70-99)
[2025-07-17] MEDS: LANTUS 0.1 UNITS SC (21:40)
--- NOTE | 2025-07-17 21:45 | PTCARENOTE ---
pt transferred by this RN to IVU room 2255. report given to RHIANNON Loyola.
--- NOTE | 2025-07-17 23:18 | PTCARENOTE ---
Received pt from BETTING CLERK into room 2255 via w/c at approx 2130. pt oriented to room. Sternal incision intact and DRYING MACHINE RECEIVER, CT sites C/D/I. Sternal precautions maintained. Encouraged pt to use IS, results of 750. Updated pt on plan of care. Encouraged pt
to call RN w/ any questions/concerns. Call [facility] within reach.
[2025-07-17] MEDS: TOPROL XL 12.5 MG PO (23:38)
[2025-07-18] VITALS (12 sets, daily range): BP systolic 118–150; BP diastolic 43–96; PULSE 68; O2SAT 93; BMI 38.2
--- NOTE | 2025-07-18 00:37 | PTCARENOTE ---
pt on tele, SR w/ 1st degree AVB. pt denies any CP or SOB at this time. YEFRI Smith ordered dose of Toprol XL, administered to pt per order--see NOV. Call [facility] within reach.
--- NOTE | 2025-07-18 01:11 | PTCARENOTE ---
pt on tele, SR w/ PVC's. pt denies any CP or SOB at this time. YEFRI Smith ordered dose of Toprol XL, administered to pt per order--see NOV. Call [facility] within reach.
~0100 tele showing pt going in and out of Afib. YEFRI ordered one time dose of PO Amiodarone, administered per order--see NOV.
[2025-07-18] MEDS: PACERONE 200 MG PO ×4 (01:16→22:32)
[2025-07-18] MEDS: LOTRIMIN 1% CREAM 1 APPLIC TOPICAL ×3 (01:18→20:12)
[2025-07-18 02:48] LABS: Hematocrit 27.6 % (37.0-47.0); Hemoglobin 8.7 g/dL (12.0-16.0); Mean Corp Hgb Conc. 31.5 g/dL (33.0-37.0); Mean Corpuscular Volume 74.4 fL (81.0-99.0); Platelet Count 204 10^3/uL (130-400); Red Cell Dist. Width 15.3 % (11.5-14.5)
[2025-07-18 03:22] LABS: Blood Urea Nitrogen 20 mg/dl (7-17); Calcium 8.5 mg/dl (8.4-10.2); Carbon Dioxide 32 mmol/L (22-30); Chloride 100 mmol/L (98-107); Estimated Creatinine Clearance 100 ml/min; Glucose 125 mg/dl (70-99); Magnesium 2.0 mg/dl (1.6-2.3); Potassium 4.0 mmol/L (3.5-5.1); Sodium 132 mmol/L (135-145); eGFR > 60.00
--- NOTE | 2025-07-18 04:22 | W.PN.CT ---
Today's Communication / Plan
-
Plan:
-No major issues overnight. Hemodynamically and neurologically intact
-Weaned off Dobutamine on 07/15/25, and delined. Transferred to [facility] phase
-For repeat echo today
-Has been in and out a-fib since the AM of 07/15/25. Completed course of Amiodarone gtt. Started on Eliquis
-Required A/V pacing immediately postop for sinus bradycardia in the 40's
-Developed ventricular bigeminy in the 50's while ambulating to bathroom and required A/V pacing, currently back in rapid a-fib
-Tolerated Amiodarone and Toprol XL last night. Will resume. Had been on hold d/t ventricular bigeminy rhythm in the 50's. Will ask EP to evaluate, may be exhibiting SSS and needs PPM
-Noted to have ERICKA at night, has CPAP but doesn't use, will benefit from CPAP
-Maintain temporary PW, will likely cut before d/c home
-Maintain cordis another day for medication administration/phlebotomy
-Diabetic with A1C of 6.9, Diabetes education/management following
-Encourage use of IS
-Wean off O2 as tolerated
-OOB into chair/Ambulate
-Home in 1-2 days
Assessment / Plan
-
Assessment:
-S/P Standard sternotomy/Complete resection of mitral valve leaflets as well as subvalvular apparatus down to level the papillary muscle heads via transseptal approach/ Placement of 2 x CV 3 [place]-Som neochords to both the anterior and posterior
medial papillary muscle heads for left ventricular support and mitral valve replacement using a 27 mm bioprosthesis/ Patch repair of annulus using bovine pericardium post extensive ultrasonic debridement of mitral annular calcification (using
CUSA)/Exploration of aorta to evaluate TAVR valve, debridement of fibrinous veil across the left main cells described on left heart cath, by Dr. Guzman, 07/13/25, pod#5
-Severe mitral valve stenosis, secondary to dense mitral annular calcification and calcific disease of the leaflets
-Previous aortic valve stenosis status post TAVR, 03/16/2023 @ [facility]
-LVEF 70-75%
-Severe pulmonary hypertension
-Hyperlipidemia
-Hypertension
-Type 2 diabetes (A1c 6.9)
-ERICKA (noncompliant with CPAP @ home)
-Class 2 obesity (BMI 36.4)
-Thalassemia minor
-Bradycardia
-S/P L TKA, 10/27/23
-S/p Uterine artery embolization
-S/p Vaginal septum removal
-S/P Bunionectomy
-Acute intraop/postop blood loss/Anemia (stable without transfusion)
-Acute postop atelectasis
-Acute postop hypovolemia with subsequent hypervolemia
-Acute postop bradycardia in 40's requiring A/V pacing in 70's
-Acute postop a-fib with RVR 130-140's
-Acute postop hyponatremia, 132
-Acute postop ventricular bigeminy in the 50's
Discussed patient care with: Cardiology, Nursing, Respiratory Therapy, Pharmacy and Care Team
Subjective
Procedure
S/P Standard sternotomy/Complete resection of mitral valve leaflets as well as subvalvular apparatus down to level the papillary muscle heads via transseptal approach/ Placement of 2 x CV 3 [place]-Som neochords to both the anterior and posterior
medial papillary muscle heads for left ventricular support and mitral valve replacement using a 27 mm bioprosthesis/ Patch repair of annulus using bovine pericardium post extensive ultrasonic debridement of mitral annular calcification (using
CUSA)/Exploration of aorta to evaluate TAVR valve, debridement of fibrinous veil across the left main cells described on left heart cath, by Dr. Guzman, 07/13/25,
-
Date of Service: July 18, 2025
C/O mild chest pain and itching feet, otherwise feels well
Objective Data
-
Lab Results
07/18/25 02:41
07/18/25 02:41
PT 17.9 Sec (11.4-14.6) H 07/13/25 12:19
INR 1.45 07/13/25 12:19
APTT 32.6 Sec (23.4-35.0) 07/13/25 12:19
Vital Signs
Vital Signs
Temp Pulse Resp BP Pulse Ox
97.6 F 107 16 118/75 97
07/18/25 02:27 07/18/25 03:00 07/18/25 02:27 07/18/25 02:27 07/18/25 02:27
CT Intake/Output/Weight
07/17/25 07/17/25 07/18/25
06:59 18:59 06:59
Intake Total 90 / 343.4 110 / 110
Output Total 1625 / 3475 1200 / 1500 300 / 1500
Balance -1535 / -3131.6 -1090 / -1390 -300 / -1390
SaO2: 97 (RA)
Physical Exam
-
General: Awake, Oriented and AOx3
Cardiovascular: Regular rate & rhythm, No Rub and No Gallop
Respiratory: Decreased Breath Sounds (at bases, otherwise clear)
Sternum: Stable
Incision: Clean, Dry, Intact and Dressing Intact
Extremities: Edema +1
Data Reviewed
-
Lab Results: Results Reviewed
Medications: Active Meds Reviewed
Chest X-Ray: Report Reviewed and Image Reviewed
ECG: Report Reviewed and Image Reviewed
[2025-07-18] MEDS: ZOFRAN 4 MG IV (04:35)
--- NOTE | 2025-07-18 05:29 | PTCARENOTE ---
pt remains in afib, HR 100's-120's. pt c/o nausea, offered PRN Zofran, pt declined Zofran. pt no longer w/ palpitations. Craig Fitzpatrick, CVPA updated, no new orders at this time.
@0430 pt c/o nausea again and now requesting Zofran, administered per request--see MAR
[2025-07-18] MEDS: TYLENOL 975 MG PO ×3 (06:07→22:32)
--- NOTE | 2025-07-18 07:11 | PN.DE.MGMTRT ---
Insulin Management
- -
07/18/2025: Diabetes Management Consult Follow up
75 year old female electively admitted 07/13/25 for mitral valve replacement due to severe mitral stenosis in setting of prior TAVR. PMH: HTN, HLD, AVS s/p TAVR in 2022, Severe pulmonary HTN, ERICKA on CPAP, T2DM, Morbidly obesity. Prior to admission
was taking Glipizide 10mg daily and Mounjaro 15 mg weekly on wed. A1C 6.9%, Cr 0.6, eGFR >60
POD 5 s/p mitral valve replacement. Patient is awake alert and oriented out of bed in chair able to discuss diabetes care. Patient states she has had diabetes ~ 15 years; sees endocrine @ [place], uses [facility]. Yesterday patient
received glipizide xr 10 mg daily, lantus 10 units @ hs and novolog 3 units AC. Farxiga was added later in the AM after discussion with patient and CVNP. Glucose range improved 117 to 169.
Will make no change to regimen: Lantus 10 units @ hs, ac novolog 3 units with low corrective, glipizide xr 10 mg daily and farxiga 10 mg daily.
Discussed with patient importance of glucose control post op.
Discussed with nurse
Will follow.
Diabetes History
- -
Type of Diabetes: 2
Pre-Admission Diabetes Regimen
07/18/25
02:41
Creatinine 0.6
Lab Results
Hemoglobin A1c 6.9 % (4.0-5.9) H 07/06/25 08:19
Insulin Pump Settings
IP Diabetes Regimen
07/17/25 07/17/25 07/17/25
08:32 13:30 16:47
Glucose
POC Glucose 148 H 169 H 144 H
07/17/25 07/18/25
20:56 02:41
Glucose 125 H
POC Glucose 139 H
Meal type: Breakfast
Patient Education
[2025-07-18 08:08] LABS: Glucose - Point of Care 159 mg/dl (70-99)
--- NOTE | 2025-07-18 08:26 | W.PN.CD ---
Today's Communication / Plan
-
- restart Amiodarone
- Hold Metoprolol
- If bradycardia noted then will place PPM and start BB as well.
Impression / Plan
-
Primary Chemotherapist: Dr Zhong
Severe MR - s/p MVR 07/13/25.
-doing nicely now off gtt
-management per CT surgery
-diuresis
Ventricular ectopy
- AF and frequent PVCs
- Had bradycardia and Metoprolol and Amiodarone was held.
- Start Amiodarone 200mg TID.
- Hold Metoprolol
- If bradycardia develops, consider PPM.
s/p TAVR - stable, debridement of aortic valve tissue performed during sugery
PAF: seen multiple times since 07/15/25
-Paroxysms of AF noted. RVR present.
-AF overnight. back in SR today
bb and amio = on hold Amio restarted today.
-Fgbmu1Hgff: (age-2, Dm-1, HTN-1, Female-1) 5, recommend anticoagulation when ok with CT Surgery-d/w CTPA
Anemia - acute post op
-stable
DM - as per primary team
Obesity - would benefit from weight loss
Physical Exam
Vital Signs/Labs
Vital Signs
Temp Pulse Resp BP Pulse Ox
98.1 F 114 20 118/66 97
07/18/25 07:01 07/18/25 07:00 07/18/25 07:01 07/18/25 06:58 07/18/25 07:01
07/17/25 07/18/25 07/19/25
06:59 06:59 06:59
Actual Weight 110 kg 109.1 kg
07/18/25 02:41
07/18/25 02:41
PT 17.9 Sec (11.4-14.6) H 07/13/25 12:19
INR 1.45 07/13/25 12:19
APTT 32.6 Sec (23.4-35.0) 07/13/25 12:19
Magnesium 2.0 mg/dl (1.6-2.3) 07/18/25 02:41
Physical Exam
Constitutional: No acute distress and Comfortable
EENT: Anicteric and Moist mucous membranes
Cardiovascular: Rhythm & rate is regular, Pedal edema is absent and JVD pressure is normal
Respiratory: Respiratory effort normal, Lungs clear to auscul. and Wheeze Absent
GI: Soft, Distention absent, Non tender and Normal bowel sounds
Neuro/Psych: Alert, Oriented and AO x 3
Data Reviewed
-
Date of Service: July 18, 2025
Medical Decision Making: Reviewed Test Results, Test Interpretation and Review of Case with other Provider
Labs: Labs Reviewed by me
Old Records: Reviewed
[2025-07-18] MEDS: MAGNESIUM OXIDE 400 MG PO ×2 (09:18→20:12)
[2025-07-18] MEDS: FARXIGA 10 MG PO (09:18)
[2025-07-18] MEDS: ELIQUIS 5 MG PO ×2 (09:19→20:12)
[2025-07-18] MEDS: LOW STRENGTH ASPIRIN 81 MG PO (09:19)
[2025-07-18] MEDS: PROTONIX 40 MG PO (09:19)
[2025-07-18] MEDS: SENOKOT 8.6 MG PO ×2 (09:19→20:12)
[2025-07-18] MEDS: NOVOLOG FLEXPEN-MODERATE RESISTANCE 1 UNITS SC ×2 (09:20→13:06)
[2025-07-18] MEDS: GLUCOTROL XL (EXTENDED RELEASE) 10 MG PO (09:20)
[2025-07-18] MEDS: LIDOCAINE 4% PATCH TOPICAL (09:21)
[2025-07-18] MEDS: NOVOLOG FLEXPEN 3 UNITS SC ×3 (09:21→19:13)
[2025-07-18] MEDS: KCL 40 MEQ PO ×2 (09:26→20:14)
--- NOTE | 2025-07-18 09:39 | CM ---
Pricing on [employer] through the patient's PP, ID# [id number], is $0 copay.
[2025-07-18] MEDS: BUMEX 1 MG IV (10:34)
--- NOTE | 2025-07-18 10:51 | CM ---
Chart reviewed. Patient is independent of ADLS, lives with her in a 2 STH, 0 JESSICA, has a RW, SPC, shower chair, and BSC. Patient ambulating in the room without difficulty. PT to do the stairs with patient prior to discharge. Plan is
for the patient to return home with CT Transitional RN. CM to follow
[2025-07-18] MEDS: BUMEX 100 IV (11:00)
[2025-07-18] MEDS: NSS IV (12:24)
[2025-07-18 12:26] LABS: Glucose - Point of Care 176 mg/dl (70-99)
[2025-07-18 17:25] LABS: Blood Urea Nitrogen 20 mg/dl (7-17); Calcium 8.5 mg/dl (8.4-10.2); Chloride 96 mmol/L (98-107); Estimated Creatinine Clearance 66 ml/min; Glucose 134 mg/dl (70-99); Potassium 3.7 mmol/L (3.5-5.1); Sodium 137 mmol/L (135-145); eGFR > 60.00
[2025-07-18 17:27] LABS: Glucose - Point of Care 122 mg/dl (70-99)
[2025-07-18 17:35] LABS: Carbon Dioxide 36 mmol/L (22-30)
[2025-07-18] MEDS: NOVOLOG FLEXPEN-MODERATE RESISTANCE SC (18:05)
--- NOTE | 2025-07-18 19:23 | PTCARENOTE ---
Pt diuresed >3000mls urine today with bumex infusion, plan to replete potassium of 3.7. Pt converted to sinus rhythm with bigeminy, frequent PVC's at @07:52. Temporary pacing wires insulated and in place but not currently connected to temp.
pacemaker. Pt reports incisional discomfort that is controlled with scheduled tylenol. Chest Xray done in Dept.
[2025-07-18] MEDS: REMOVE LIDOCAINE PATCH REMOVE (20:13)
[2025-07-18 20:17] LABS: Magnesium 2.0 mg/dl (1.6-2.3)
--- NOTE | 2025-07-18 20:44 | PTCARENOTE ---
assumed care of patient at the change of shift. AAOx3. denies any pain at this time. patient is having frequent PVCs. bigeminy and trigeminy. denies any palpiations. HR in the 70s. bp stable. Tsilina CV PA aware of PVCs. oral potassium ordered and
given. Mag 2.0. LE edema noted. R>L, +1/2 pitting. lungs clear. IS encouraged. dry cough at times. temp pacer wires insulated. surgical incisions intact. toes reddened. patient states not new-history of toe fungus. oob standby assist. sternal
precautions maintained. stress incontinence/urgency. patient rings for assistance appropriately. reviewed plan of care with patient and verbalized understanding. comfort measures provided. call [facility] within reach.
[2025-07-18 22:29] LABS: Glucose - Point of Care 205 mg/dl (70-99)
[2025-07-18] MEDS: LANTUS 0.1 UNITS SC (22:32)
[2025-07-18] MEDS: LIPITOR 20 MG PO (22:33)
[2025-07-19] VITALS (11 sets, daily range): BP systolic 101–154; BP diastolic 49–84; BMI 36.9
--- NOTE | 2025-07-19 03:47 | W.PN.CT ---
Today's Communication / Plan
-
-pod #6
-describes lightheadedness when gets up in am, which sounds more like vertigo
-no a-fib overnight. No significant bradycardia or pauses. Had brief atrial tach episode @ 10: 35 pm. Also, noted to have intermittent junctional rhythm mid 50s with ventricular bigeminy.
-holding Toprol, taking Amio 200 tid. Appreciate EP input
-Maintain temporary PW, will likely cut before d/c home
-gave 40 K last night. am labs are pending
-Echo 07/18 is stable.
-diuresed well with Bumex drip on 07/18- UO 1600/4650+ in 12/24 hrs
-Diabetic with A1C of 6.9, Diabetes education/management following-appreciate input
-Encourage use of IS
-Weaned off O2
-OOB into chair/Ambulate
Assessment / Plan
-
Assessment:
-S/P Standard sternotomy/Complete resection of mitral valve leaflets as well as subvalvular apparatus down to level the papillary muscle heads via transseptal approach/ Placement of 2 x CV 3 [place]-Som neochords to both the anterior and posterior
medial papillary muscle heads for left ventricular support and mitral valve replacement using a 27 mm bioprosthesis/ Patch repair of annulus using bovine pericardium post extensive ultrasonic debridement of mitral annular calcification (using
CUSA)/Exploration of aorta to evaluate TAVR valve, debridement of fibrinous veil across the left main cells described on left heart cath, by Dr. Guzman, 07/13/25, pod#6
-Severe mitral valve stenosis, secondary to dense mitral annular calcification and calcific disease of the leaflets
-Previous aortic valve stenosis status post TAVR, 03/16/2023 @ [facility]
-LVEF 70-75%
-Severe pulmonary hypertension
-Hyperlipidemia
-Hypertension
-Type 2 diabetes (A1c 6.9)
-ERICKA (noncompliant with CPAP @ home)
-Class 2 obesity (BMI 36.4)
-Thalassemia minor
-Bradycardia
-S/P L TKA, 10/27/23
-S/p Uterine artery embolization
-S/p Vaginal septum removal
-S/P Bunionectomy
-Acute intraop/postop blood loss/Anemia (stable without transfusion)
-Acute postop atelectasis
-Acute postop hypovolemia with subsequent hypervolemia
-Acute postop bradycardia in 40's requiring A/V pacing in 70's
-Acute postop a-fib with RVR 130-140's
-Acute postop hyponatremia, 132
-Acute postop ventricular bigeminy in the 50's
-Echo 07/18/25:
1. Hyperdynamic LV systolic function with small ventricular cavity. LVEF 70-75%. Moderate LVH.
2. Normal right ventricular size and systolic function.
3. The TAVR valve is well-seated with a mean gradient of 10 mmHg and no aortic regurgitation.
4. The mitral valve replacement is well-seated. The mean gradient is 2 mmHg. No mitral regurgitation is identified.
5. No pericardial effusion.
6. No significant change since echocardiogram dated 07/16/2025.
Discussed patient care with: Nursing and Care Team
Subjective
Procedure
S/P Standard sternotomy/Complete resection of mitral valve leaflets as well as subvalvular apparatus down to level the papillary muscle heads via transseptal approach/ Placement of 2 x CV 3 [place]-Som neochords to both the anterior and posterior
medial papillary muscle heads for left ventricular support and mitral valve replacement using a 27 mm bioprosthesis/ Patch repair of annulus using bovine pericardium post extensive ultrasonic debridement of mitral annular calcification (using
CUSA)/Exploration of aorta to evaluate TAVR valve, debridement of fibrinous veil across the left main cells described on left heart cath, by Dr. Guzman, 07/13/25,
-
Date of Service: July 19, 2025
Objective Data
-
PT 17.9 Sec (11.4-14.6) H 07/13/25 12:19
INR 1.45 07/13/25 12:19
APTT 32.6 Sec (23.4-35.0) 07/13/25 12:19
Vital Signs
Vital Signs
Temp Pulse Resp BP Pulse Ox
98.6 F 67 18 120/59 97
07/18/25 23:16 07/18/25 22:25 07/18/25 23:16 07/18/25 22:25 07/18/25 23:16
CT Intake/Output/Weight
07/18/25 07/18/25 07/19/25
06:59 18:59 06:59
Intake Total 360 / 470 32 / 182 150 / 182
Output Total 300 / 1500 3050 / 4575 1525 / 4575
Balance 60 / -1030 -3018 / -4393 -1375 / -4393
SaO2: 97
Physical Exam
-
General: Awake and AOx3
Cardiovascular: Regular rate & rhythm, No Murmurs and No Rub
Respiratory: Clear and Decreased Breath Sounds
Sternum: Stable
Incision: Clean, Dry and Intact
Extremities: Edema +1
Abdomen: soft, nontender, nondistended, + bowel sounds
Data Reviewed
-
Lab Results: Results Reviewed
Medications: Active Meds Reviewed
Chest X-Ray: Report Reviewed and Image Reviewed
ECG: Report Reviewed and Image Reviewed
[2025-07-19 04:12] LABS: Blood Urea Nitrogen 20 mg/dl (7-17); Calcium 8.7 mg/dl (8.4-10.2); Carbon Dioxide 38 mmol/L (22-30); Chloride 96 mmol/L (98-107); Estimated Creatinine Clearance 74 ml/min; Glucose 129 mg/dl (70-99); Potassium 4.2 mmol/L (3.5-5.1); Sodium 136 mmol/L (135-145); eGFR > 60.00
[2025-07-19 04:14] LABS: Hematocrit 30.1 % (37.0-47.0); Hemoglobin 9.5 g/dL (12.0-16.0); Mean Corp Hgb Conc. 31.6 g/dL (33.0-37.0); Mean Corpuscular Volume 75.4 fL (81.0-99.0); Platelet Count 259 10^3/uL (130-400); Red Cell Dist. Width 15.0 % (11.5-14.5)
[2025-07-19] MEDS: TYLENOL PO ×2 (06:12→16:50)
[2025-07-19 07:20] LABS: Glucose - Point of Care 140 mg/dl (70-99)
[2025-07-19] MEDS: GLUCOTROL XL (EXTENDED RELEASE) 10 MG PO (08:19)
[2025-07-19] MEDS: FARXIGA 10 MG PO (08:22)
[2025-07-19] MEDS: ELIQUIS 5 MG PO ×2 (08:22→19:41)
[2025-07-19] MEDS: PROTONIX 40 MG PO (08:22)
[2025-07-19] MEDS: PACERONE 200 MG PO ×3 (08:22→21:09)
[2025-07-19] MEDS: MAGNESIUM OXIDE 400 MG PO ×2 (08:22→19:41)
[2025-07-19] MEDS: SENOKOT 8.6 MG PO ×2 (08:22→19:41)
[2025-07-19] MEDS: LIDOCAINE 4% PATCH TOPICAL (08:23)
[2025-07-19] MEDS: LOW STRENGTH ASPIRIN 81 MG PO (08:23)
[2025-07-19] MEDS: LOTRIMIN 1% CREAM 1 APPLIC TOPICAL ×2 (08:23→19:41)
[2025-07-19] MEDS: NOVOLOG FLEXPEN 3 UNITS SC ×3 (08:23→17:24)
[2025-07-19] MEDS: NOVOLOG FLEXPEN-MODERATE RESISTANCE SC (08:24)
--- NOTE | 2025-07-19 08:30 | PN.DE.MGMTRT ---
Insulin Management
- -
07/19/2025: Diabetes Management Consult Follow up
75 year old female electively admitted 07/13/25 for mitral valve replacement due to severe mitral stenosis in setting of prior TAVR. PMH: HTN, HLD, AVS s/p TAVR in 2022, Severe pulmonary HTN, ERICKA on CPAP, T2DM, Morbidly obesity. Prior to admission
was taking Glipizide 10mg daily and Mounjaro 15 mg weekly on wed. A1C 6.9%, Cr 0.6, eGFR >60
POD 6 s/p mitral valve replacement. Patient is awake alert and oriented out of bed in chair able to discuss diabetes care. Patient states she has had diabetes ~ 15 years; sees endocrine @ [facility], uses [facility]. Yesterday patient
received glipizide xr 10 mg daily, lantus 10 units @ hs and novolog 3 units AC. Farxiga was added later in the AM after discussion with patient and CVNP. Glucose range 122 to 205.
Will make no change to regimen: Lantus 10 units @ hs, ac novolog 3 units with low corrective, glipizide xr 10 mg daily and farxiga 10 mg daily.
Discussed with patient importance of glucose control post op.
Discussed with nurse
Will follow.
Diabetes History
- -
Type of Diabetes: 2
Pre-Admission Diabetes Regimen
07/18/25 07/19/25
16:59 03:23
Creatinine 0.9 0.8
Lab Results
Hemoglobin A1c 6.9 % (4.0-5.9) H 07/06/25 08:19
Insulin Pump Settings
IP Diabetes Regimen
07/18/25 07/18/25 07/18/25
12:25 16:59 17:26
Glucose 134 H
POC Glucose 176 H 122 H
07/18/25 07/19/25 07/19/25
22:27 03:23 07:18
Glucose 129 H
POC Glucose 205 H 140 H
Meal type: Dinner
Meal type: Breakfast
Amount consumed: 100%
Amount consumed: 95%
Patient Education
--- NOTE | 2025-07-19 08:52 | W.PN.CD ---
Today's Communication / Plan
-
monitor I/O for further diuretic requirement
cont. amio
discharge planning
Impression / Plan
-
Primary Education And Training Coordinator: Dr Zhong
Severe MR - s/p MVR 07/13/25.
-doing well post-op
-well functioning valve on echo
-significant diuresis yesterday with bumex drip, now back to pre-operative weight
-monitor I/O today to determine need for further standing diuretic
Ventricular ectopy
- frequent PVCs
- Had bradycardia and Metoprolol and Amiodarone was held, amio 200 TID now restarted, tolerating amio 200 TID without bradycardia or dizziness, cont. TID dosing here, decrease to BID dosing on d/c
- Hold Metoprolol for now
- If bradycardia develops, consider PPM.
PAF: seen multiple times since 07/15/25
-Paroxysms of AF noted. RVR present.
-none in 24 hours
-cont. amio, hold BB as above
-[id number]: (age-2, Dm-1, HTN-1, Female-1) 5 --> AC initiated and tolerating
-HCM
-known mid-cavitary gradient again demonstrated on TTE 07/16
-will eventually want to start beta janeth but given post-operative dizziness and bradycardia earlier on admission, will hold for now
s/p TAVR - stable, debridement of aortic valve tissue performed during surgery
Anemia - acute post op
-stable
DM - as per primary team
Obesity - would benefit from weight loss
Physical Exam
Vital Signs/Labs
Vital Signs
Temp Pulse Resp BP Pulse Ox
36.9 C 72 20 101/71 97
07/19/25 07:33 07/19/25 08:00 07/19/25 07:33 07/19/25 07:31 07/19/25 08:34
07/18/25 07/19/25 07/20/25
06:59 06:59 06:59
Actual Weight 109.1 kg 105.3 kg
07/19/25 03:23
07/19/25 03:23
PT 17.9 Sec (11.4-14.6) H 07/13/25 12:19
INR 1.45 07/13/25 12:19
APTT 32.6 Sec (23.4-35.0) 07/13/25 12:19
Magnesium 2.0 mg/dl (1.6-2.3) 07/18/25 16:59
Physical Exam
Constitutional: Comfortable
Cardiovascular: Rhythm & rate is regular
Respiratory: Respiratory effort normal
Neuro/Psych: AO x 3
Data Reviewed
-
Date of Service: July 19, 2025
Medical Decision Making: Reviewed Test Results
EKG: Tracing Personally Visualized and interpreted
Echo: Tracing Personally Visualized and interpreted
Labs: Labs Reviewed by me
[2025-07-19] MEDS: BUMEX 2 MG IV (10:58)
[2025-07-19] MEDS: NSS IV (10:59)
--- NOTE | 2025-07-19 11:07 | CM ---
Chart reviewed. Patient ambulated down to the waiting room without an assistive device today. Patient is independent of ADLS, lives with her in a 2 STH, 0 JESSICA, 0 DME. Plan is for the patient to return home with CT Transitional RN. CM
to follow
[2025-07-19 12:44] LABS: Glucose - Point of Care 193 mg/dl (70-99)
[2025-07-19] MEDS: NOVOLOG FLEXPEN-MODERATE RESISTANCE 1 UNITS SC ×2 (13:22→17:24)
--- NOTE | 2025-07-19 13:30 | PN.CDI ---
CDI
- -
CDI:
Physician Documentation Request
Admit Date: 07/13/25 04:55
Dear Doctor Megan,
Please review the following and provide your response in the progress notes.
Clinical Indicators:
PN, 07/19
#...responded really well to diuresis yesterday.
#...Continue diuresis today echo was reviewed, mitral valve appears to be well-seated
#...no rocking mean gradient of 2. Likely home tomorrow.
#-pod #6
#-Echo 07/18 is stable.
#-diuresed well with Bumex drip on 07/18- UO 1600/4650+ in 12/24 hrs
#-Acute postop hypovolemia with subsequent hypervolemia
Cardiology, PN, 07/19
#Severe MR - s/p MVR 07/13/25.
#-doing well post-op
#-well functioning valve on echo
#-significant diuresis yesterday with bumex drip, now back to pre-operative weight
#-monitor I/O today to determine need for further standing diuretic
#-Echo 07/18/25:
1. Hyperdynamic LV systolic function with small ventricular cavity. LVEF 70-75%. Moderate LVH.
2. Normal right ventricular size and systolic function.
3. The TAVR valve is well-seated with a mean gradient of 10 mmHg and no aortic regurgitation.
4. The mitral valve replacement is well-seated. The mean gradient is 2 mmHg. No mitral regurgitation is identified.
5. No pericardial effusion.
6. No significant change since echocardiogram dated 07/16/2025.
weight 229 lbs to 245 lbs
Based on the above and your clinical assessment, please provide the diagnosis/condition requiring ongoing IV diuresis and evaluation, treatment and/or monitoring.
Acute Diastolic CHF
Acute post op hypervolemia only
Other (please specify)
Type Acuity
Systolic Acute
Diastolic Chronic
Combined Systolic/Diastolic Acute on Chronic
Use of terms such as suspected, likely, concern for, or probable (associated with a specific diagnosis that is being evaluated, monitored, or treated as if it exists) are acceptable and can be coded in the inpatient setting, when documented at the
time of discharge.
Thank you,
Kailyn Gallardo RN BSN CCDS
CDI Specialist
Please contact via tiger text
Please use your independent medical judgment in providing your response.
--- NOTE | 2025-07-19 13:56 | PN.CDI ---
CDI
- -
CDI:
Physician Documentation Request
Admit Date: 07/13/25 04:55
Dear Doctor Megan,
Please review the following and provide your response in the progress notes.
Clinical Indicators:
Intensivists, PN, 07/14
#Tolerated extubation
#...Nasal Cannula flow liters per 4 minute
Intensivists, PN, 07/15
#Respiratory status stable
#...Wean FiO2-room air 97% saturation
07/15/25 03:10 (created 07/15/25 04:45) - Patient Care Note
#...O2 increased to 4L/NC for sats 90-91%.
07/15/25 07:15 (created 07/15/25 07:17) - Patient Care Note
#...Sats 98% on 4L/NC.
07/15/25 22:15 (created 07/16/25 08:06) - Patient Care Note
#...On 2L, sats 92-93%. Increased to 3L/NC. Sats 95%.
07/16/25 02:00 (created 07/16/25 08:10) - Patient Care Note
#...mild TOUSSAINT when getting back to bed.
#...O2 increased to 4L/NC/ Sat 95%.
Selected Entries
07/16/25
23:30
Nasal Cannula flow liters per minute 2
Selected Entries
07/18/25
07:01
Nasal Cannula flow liters per minute 2
Please clarify which of the following accurately represents the patient's respiratory status following surgery:
Acute post op pulmonary insufficiency (following surgery)
Chronic pulmonary insufficiency (following surgery)
Acute respiratory failure
Hypoxia
Other(please specify)
Additional information for Pulmonary Insufficiency:
Consider when patients require residential oxygen therapy postoperatively
Weaned off oxygen initially then requiring supplemental oxygen
No other definitive diagnosis to support the need for oxygen (COPD exac, CHF etc.)
Unable to wean from vent
When criteria for respiratory failure not present
May extend stay or require additional resources; may need home O2
Additional information for Respiratory Failure:
Recognized criteria for Respiratory Failure (Source: [employer] Hospitalist Jul 2013)
ABGs: (1 or more) Symptoms Indicate:
1. p)2 <60 or RA SPO2 <91% on RA 1. Tachypnea, SOB, dyspnea 1. Type as:
2. pCO2 50 and pH <7.35 2. Use of accessory muscles a. Hypoxic
3. pO2 decrease of pCO2 increase by 3. Pallor or cyanosis b. Hypercapnic
10 mmHg from baseline if known 4. Anxiety or restlessness 2. If due to procedure or due to another cause
5. Unable to speak in full sentences
Supplemental O2 of > 40% Intubation is not required
Use of terms such as suspected, likely, concern for, or probable (associated with a specific diagnosis that is being evaluated, monitored, or treated as if it exists) are acceptable and can be coded in the inpatient setting, when documented at the
time of discharge.
Thank you,
Kailyn Gallardo
CDI Specialist
Please use your independent medical judgment in providing your response.
[2025-07-19 17:21] LABS: Glucose - Point of Care 162 mg/dl (70-99)
--- NOTE | 2025-07-19 18:15 | PTCARENOTE ---
Pt walked at a slow pace in halls with RN @150 feet. Pt reported feeling SOB and was quite anxious but recovered within 2 minutes of rest. Pt diuresed with more bumex. Pt did a little better with additional walks. Pt slightly more independent with
ADLs. Telemetry shows sinus rhythm with frequent trigeminy.
[2025-07-19] MEDS: REMOVE LIDOCAINE PATCH REMOVE (19:33)
--- NOTE | 2025-07-19 20:53 | PTCARENOTE ---
Patient received at change of shift resting in the bed. Reports mild incisional pain at the top of her sternal incision which is tolerable for her. Denies N/V. SR with PVCs and frequent bigeminy on telemetry. Oxygen saturation 93-97% on room air.
Temporary pacer wires insulated. Patient maintaining sternal precautions. Plan of care discussed. Call [facility] within reach. Care ongoing.
[2025-07-19 21:09] LABS: Glucose - Point of Care 143 mg/dl (70-99)
[2025-07-19] MEDS: LIPITOR 20 MG PO (21:09)
[2025-07-19] MEDS: LANTUS 0.1 UNITS SC (21:09)
[2025-07-19] MEDS: TYLENOL 975 MG PO (21:09)
[2025-07-20] VITALS (11 sets, daily range): BP systolic 113–151; BP diastolic 47–103; BMI 36.7
[2025-07-20 04:00] LABS: Hematocrit 30.0 % (37.0-47.0); Hemoglobin 9.4 g/dL (12.0-16.0); Mean Corp Hgb Conc. 31.3 g/dL (33.0-37.0); Mean Corpuscular Volume 75.6 fL (81.0-99.0); Platelet Count 300 10^3/uL (130-400); Red Cell Dist. Width 15.0 % (11.5-14.5)
[2025-07-20 04:21] LABS: Blood Urea Nitrogen 24 mg/dl (7-17); Calcium 8.9 mg/dl (8.4-10.2); Chloride 97 mmol/L (98-107); Estimated Creatinine Clearance 83 ml/min; Glucose 121 mg/dl (70-99); Magnesium 2.3 mg/dl (1.6-2.3); Potassium 4.0 mmol/L (3.5-5.1); Sodium 139 mmol/L (135-145); eGFR > 60.00
[2025-07-20 04:30] LABS: Carbon Dioxide 35 mmol/L (22-30)
[2025-07-20] MEDS: TYLENOL 975 MG PO (06:11)
[2025-07-20] MEDS: CORDARONE 103 MG IV (06:36)
--- NOTE | 2025-07-20 06:41 | PTCARENOTE ---
Patient noted to be in and out of rapid afib throughout this shift. Patient endorses intermittent palpitations. Per CT surgery FLOR Mccarty new IV to be started and amiodarone bolus followed by gtt to be initiated. New LFA 22G PIV inserted. Amio
bolus currently infusing. Care ongoing.
[2025-07-20] MEDS: CORDARONE 259 MG IV (07:17)
[2025-07-20 08:06] LABS: Glucose - Point of Care 143 mg/dl (70-99)
--- NOTE | 2025-07-20 08:41 | W.PN.CT ---
Today's Communication / Plan
-
-pod #7
-went back into a-fib with RVR at ~ 8 pm. Holding BB d/t bradycardia earlier, on po Amio
-discussed with Dr. Guzman - started new IV and Amio bolus and drip
-frequent PVCs, couplets postop
-appreciate Cardiology input
Assessment / Plan
-
Assessment:
-S/P Standard sternotomy/Complete resection of mitral valve leaflets as well as subvalvular apparatus down to level the papillary muscle heads via transseptal approach/ Placement of 2 x CV 3 [place]-Som neochords to both the anterior and posterior
medial papillary muscle heads for left ventricular support and mitral valve replacement using a 27 mm bioprosthesis/ Patch repair of annulus using bovine pericardium post extensive ultrasonic debridement of mitral annular calcification (using
CUSA)/Exploration of aorta to evaluate TAVR valve, debridement of fibrinous veil across the left main cells described on left heart cath, by Dr. Guzman, 07/13/25, pod#7
-Severe mitral valve stenosis, secondary to dense mitral annular calcification and calcific disease of the leaflets
-Previous aortic valve stenosis status post TAVR, 03/16/2023 @ [facility]
-LVEF 70-75%
-Severe pulmonary hypertension
-Hyperlipidemia
-Hypertension
-Type 2 diabetes (A1c 6.9)
-ERICKA (noncompliant with CPAP @ home)
-Class 2 obesity (BMI 36.4)
-Thalassemia minor
-Bradycardia
-S/P L TKA, 10/27/23
-S/p Uterine artery embolization
-S/p Vaginal septum removal
-S/P Bunionectomy
-Acute intraop/postop blood loss/Anemia (stable without transfusion)
-Acute postop atelectasis
-Acute postop hypovolemia with subsequent hypervolemia
-Acute postop bradycardia in 40's requiring A/V pacing in 70's
-Acute postop a-fib with RVR 130-140's
-Acute postop hyponatremia, 132
-Acute postop ventricular bigeminy in the 50's
-Echo 07/18/25:
1. Hyperdynamic LV systolic function with small ventricular cavity. LVEF 70-75%. Moderate LVH.
2. Normal right ventricular size and systolic function.
3. The TAVR valve is well-seated with a mean gradient of 10 mmHg and no aortic regurgitation.
4. The mitral valve replacement is well-seated. The mean gradient is 2 mmHg. No mitral regurgitation is identified.
5. No pericardial effusion.
6. No significant change since echocardiogram dated 07/16/2025.
Discussed patient care with: Nursing and Care Team
Subjective
Procedure
S/P Standard sternotomy/Complete resection of mitral valve leaflets as well as subvalvular apparatus down to level the papillary muscle heads via transseptal approach/ Placement of 2 x CV 3 [place]-Som neochords to both the anterior and posterior
medial papillary muscle heads for left ventricular support and mitral valve replacement using a 27 mm bioprosthesis/ Patch repair of annulus using bovine pericardium post extensive ultrasonic debridement of mitral annular calcification (using
CUSA)/Exploration of aorta to evaluate TAVR valve, debridement of fibrinous veil across the left main cells described on left heart cath, by Dr. Guzman, 07/13/25,
-
Date of Service: July 20, 2025
Objective Data
-
Lab Results
07/20/25 03:12
07/20/25 03:12
PT 17.9 Sec (11.4-14.6) H 07/13/25 12:19
INR 1.45 07/13/25 12:19
APTT 32.6 Sec (23.4-35.0) 07/13/25 12:19
Vital Signs
Vital Signs
Temp Pulse Resp BP Pulse Ox
98.4 F 108 18 140/83 96
07/20/25 08:01 07/20/25 06:30 07/20/25 08:01 07/20/25 06:29 07/20/25 08:01
CT Intake/Output/Weight
07/19/25 07/20/25 07/20/25
18:59 06:59 18:59
Intake Total 240 / 240 583 / 583
Balance 240 / 240 583 / 583
SaO2: 96
Physical Exam
-
General: AOx3
Cardiovascular: Irregular rate & rhythm and No Murmurs
Respiratory: Decreased Breath Sounds
Sternum: Stable
Incision: Clean, Dry and Intact
Extremities: No Edema
Data Reviewed
-
Lab Results: Results Reviewed
Medications: Active Meds Reviewed
Chest X-Ray: Report Reviewed and Image Reviewed
ECG: Report Reviewed and Image Reviewed
[2025-07-20 09:29] LABS: Glucose - Point of Care 146 mg/dl (70-99)
--- NOTE | 2025-07-20 09:35 | W.PN.UPDATE ---
Update Note
Progress Note Update
CDI query:
Acute post op pulmonary insufficiency (following surgery)
Acute post op hypervolemia only
[2025-07-20] MEDS: LOW STRENGTH ASPIRIN 81 MG PO (09:47)
[2025-07-20] MEDS: MAGNESIUM OXIDE 400 MG PO ×2 (09:47→20:03)
[2025-07-20] MEDS: PROTONIX 40 MG PO (09:47)
[2025-07-20] MEDS: ELIQUIS 5 MG PO ×2 (09:48→20:03)
[2025-07-20] MEDS: PACERONE 200 MG PO ×3 (09:48→21:05)
[2025-07-20] MEDS: NOVOLOG FLEXPEN-MODERATE RESISTANCE SC ×2 (09:49→11:57)
[2025-07-20] MEDS: LIDOCAINE 4% PATCH TOPICAL (09:49)
[2025-07-20] MEDS: SENOKOT 8.6 MG PO ×2 (09:49→20:03)
[2025-07-20] MEDS: NOVOLOG FLEXPEN SC ×2 (09:50→11:57)
[2025-07-20] MEDS: LOTRIMIN 1% CREAM 1 APPLIC TOPICAL ×2 (09:50→20:04)
--- NOTE | 2025-07-20 09:57 | PN.DE.MGMTRT ---
Insulin Management
- -
07/20/2025: Diabetes Management Follow up
75 year old female electively admitted 07/13/25 for mitral valve replacement due to severe mitral stenosis in setting of prior TAVR.
PMH: HTN, HLD, AVS s/p TAVR in 2022, Severe pulmonary HTN, ERICKA on CPAP, T2DM, Morbidly obesity.
Patient states she has had diabetes ~ 15 years; sees endocrine @ [place], uses [facility].
Prior to admission was taking Glipizide 10mg daily and Mounjaro 15 mg weekly on wed. A1C 6.9%, Cr 0.6, eGFR >60
Patient is awake alert and oriented, resting in bed, offers no complaints, able to discuss diabetes care.
POD # 7 s/p mitral valve replacement. Noted for an episode of A-Fib last night, now on amiodarone drip. Doing well overall.
States PCP recently added Mounjaro due to a rise in her A1C 7.2, She's been taking it for 4 weeks now. Her A1C has come down to 6.9% since starting Mounjaro
Yesterday patient received glipizide xr 10 mg, Farxiga 10mg, Lantus 10 units @ HS and NovoLog 3 units AC. Glucose range 162 to 193.
Will make no change to regimen: Lantus 10 units @ HS, AC NovoLog 3 units with low corrective, Glipizide xr 10 mg daily and Farxiga 10 mg daily.
Discussed with patient importance of glucose control post op.
Will stop Lantus and AC NovoLog at discharge given increased risk of hypoglycemia while taking Sulfonylurea and insulin in patients of advanced age
Discussed with nurse. Will cont to follow.
Meds at discharge: Glipizide 10mg XL daily, Farxiga 10mg daily and Mounjaro
Diabetes History
- -
Type of Diabetes: 2 requiring insulin
Pre-Admission Diabetes Regimen
07/20/25
03:12
Creatinine 0.7
Lab Results
Hemoglobin A1c 6.9 % (4.0-5.9) H 07/06/25 08:19
Insulin Pump Settings
IP Diabetes Regimen
07/19/25 07/19/25 07/19/25
12:43 17:20 21:08
Glucose
POC Glucose 193 H 162 H 143 H
07/20/25 07/20/25 07/20/25
03:12 08:05 09:28
Glucose 121 H
POC Glucose 143 H 146 H
Meal type: Breakfast
Meal type: Dinner
Meal type: Lunch
Amount consumed: 100%
Amount consumed: 100%
Patient Education
--- NOTE | 2025-07-20 10:21 | W.PN.CD ---
Today's Communication / Plan
-
- No further diuretics appear to be indicated at this time.
- A-fib with RVR overnight; placed on an amiodarone drip.
- Toprol-XL 12.5 mg BID being held for now.
- If bradycardia develops, consider PPM.
Impression / Plan
-
Primary Pediatric Intensive Physician: Dr Zhong
Severe MR - s/p MVR 07/13/25.
-doing well post-op
-well functioning valve on echo
-significant diuresis with bumex drip, now back to pre-operative weight
- No further diuretics appear to be indicated at this time.
PAF with RVR/ventricular ectopy
- frequent PVCs
- Previously had bradycardia and Metoprolol and Amiodarone were held
- A-fib with RVR overnight; placed on an amiodarone drip.
- Toprol-XL 12.5 mg BID being held for now.
- If bradycardia develops, consider PPM.
- [id number]: (age-2, Dm-1, HTN-1, Female-1) 5 --> Eliquis initiated.
-HCM
-known mid-cavitary gradient again demonstrated on TTE 07/16
-No standing diuretic.
s/p TAVR - stable, debridement of aortic valve tissue performed during surgery
Anemia - acute post op
-stable
DM - as per primary team
Obesity - would benefit from weight loss
Physical Exam
Vital Signs/Labs
Vital Signs
Temp Pulse Resp BP Pulse Ox
98.4 F 108 18 140/83 96
07/20/25 08:01 07/20/25 06:30 07/20/25 08:01 07/20/25 06:29 07/20/25 09:46
07/19/25 07/20/25 07/21/25
06:59 06:59 06:59
Actual Weight 105.3 kg 104.6 kg
07/20/25 03:12
07/20/25 03:12
PT 17.9 Sec (11.4-14.6) H 07/13/25 12:19
INR 1.45 07/13/25 12:19
APTT 32.6 Sec (23.4-35.0) 07/13/25 12:19
Magnesium 2.3 mg/dl (1.6-2.3) 07/20/25 03:12
Physical Exam
Constitutional: No acute distress and Comfortable
EENT: Anicteric
Cardiovascular: Systolic murmur absent, Rhythm/rate is irregular, Pedal edema present (Trace-1+) and S1S2 is normal
Respiratory: Respiratory effort normal and Lungs clear to auscul.
GI: Soft
Neuro/Psych: AO x 3
Other: Skin (Warm, dry, intact)
Data Reviewed
-
Date of Service: July 20, 2025
EKG: Tracing Personally Visualized and interpreted (Telemetry: A-fib with RVR)
Echo: Report Reviewed by me (07/18/2025: EF 70-75%.)
Medical Tests (PFT, Pathology etc): Discussed with Patient
Labs: Labs Reviewed by me
--- NOTE | 2025-07-20 10:35 | PTCARENOTE ---
Pt on amiodarone infusion for atrial fib, frequent couplets noted . Potassium 4.0, magnesium 2.3. CT team awaare of increased ectopy.
--- NOTE | 2025-07-20 10:52 | CM ---
Chart reviewed. Patient is independent of ADLS, lives with her in a 2 STH, 0 JESSICA, has a RW, SPC, BSC and shower chair at home. PT evaluation recommending home. Plan is for the patient to return home with CT Transitional RN. CM to follow
[2025-07-20 11:44] LABS: Glucose - Point of Care 117 mg/dl (70-99)
[2025-07-20] MEDS: GLUCOTROL XL (EXTENDED RELEASE) 10 MG PO (13:34)
[2025-07-20] MEDS: FARXIGA 10 MG PO (13:35)
[2025-07-20] MEDS: NSS IV (13:35)
[2025-07-20] MEDS: NOVOLOG FLEXPEN 3 UNITS SC ×2 (13:36→18:06)
[2025-07-20] MEDS: TYLENOL PO ×2 (13:37→23:10)
[2025-07-20] MEDS: DULCOLAX 10 MG PO (17:21)
[2025-07-20 17:35] LABS: Glucose - Point of Care 158 mg/dl (70-99)
[2025-07-20] MEDS: NOVOLOG FLEXPEN-MODERATE RESISTANCE 1 UNITS SC (18:07)
--- NOTE | 2025-07-20 18:55 | PTCARENOTE ---
Pt converted to sinus rhythm with frequent bigeminy @12:10, amiodarone infusion discontinued when bag emptied @17:30. Pt OOB to chair and up in her room with minimal assistance, plan to walk in halls on 07/21. Pacing wires still present. Pt still
has not had BM, dulcolax tabs and senna given.
[2025-07-20] MEDS: REMOVE LIDOCAINE PATCH REMOVE (20:04)
[2025-07-20] MEDS: LIPITOR 20 MG PO (21:04)
[2025-07-20] MEDS: LANTUS 0.1 UNITS SC (21:04)
[2025-07-20 21:06] LABS: Glucose - Point of Care 180 mg/dl (70-99)
--- NOTE | 2025-07-20 21:23 | PTCARENOTE ---
Received pt @ change of shift. AAOx3, NSR/SB with bigeminy/trigeminy on monitor. Sternal incision scabby and approximated-- little swollen and tender at top-- pt denies need/want of Tylenol @ this time. Informed pt to inform RN if decides she wants
it at a later time. Discussed plan of care for evening. Pt verbalizes understanding. Call [facility] within reach.
[2025-07-21 05:21] VITALS: BP 124/65
[2025-07-21 05:53] VITALS: BMI 36.7
[2025-07-21 06:19] LABS: Blood Urea Nitrogen 21 mg/dl (7-17); Calcium 8.5 mg/dl (8.4-10.2); Chloride 99 mmol/L (98-107); Estimated Creatinine Clearance 97 ml/min; Glucose 97 mg/dl (70-99); Magnesium 2.3 mg/dl (1.6-2.3); Potassium 4.0 mmol/L (3.5-5.1); Sodium 137 mmol/L (135-145); eGFR > 60.00
[2025-07-21 06:28] LABS: Carbon Dioxide 33 mmol/L (22-30)
[2025-07-21 06:57] VITALS: BP 117/76
[2025-07-21 07:30] LABS: Glucose - Point of Care 127 mg/dl (70-99)
[2025-07-21] MEDS: TYLENOL PO ×2 (07:39→13:51)
[2025-07-21] MEDS: SENOKOT 8.6 MG PO (07:40)
[2025-07-21] MEDS: NOVOLOG FLEXPEN-MODERATE RESISTANCE SC ×2 (07:40→11:52)
[2025-07-21] MEDS: PACERONE 200 MG PO (07:40)
[2025-07-21] MEDS: LOW STRENGTH ASPIRIN 81 MG PO (07:40)
[2025-07-21] MEDS: PROTONIX 40 MG PO (07:40)
[2025-07-21] MEDS: GLUCOTROL XL (EXTENDED RELEASE) 10 MG PO (07:40)
[2025-07-21] MEDS: FARXIGA 10 MG PO (07:40)
[2025-07-21] MEDS: MIRALAX 17 GRAMS PO (07:40)
[2025-07-21] MEDS: MAGNESIUM OXIDE 400 MG PO (07:41)
[2025-07-21] MEDS: ELIQUIS 5 MG PO (07:41)
[2025-07-21] MEDS: NOVOLOG FLEXPEN 3 UNITS SC ×2 (07:41→12:36)
--- NOTE | 2025-07-21 08:14 | W.PN.CT ---
Today's Communication / Plan
-
-pod #8
-no issues overnight
-converted to NSR on Amio drip on 07/20. Holding BB d/t bradycardia earlier, on po Amio. Plan is to decrease Amio to bid at discharge
-frequent PVCs, couplets postop
-appreciate Cardiology input
-possible d/c soon
Assessment / Plan
-
Assessment:
-S/P Standard sternotomy/Complete resection of mitral valve leaflets as well as subvalvular apparatus down to level the papillary muscle heads via transseptal approach/ Placement of 2 x CV 3 Grady-Som neochords to both the anterior and posterior
medial papillary muscle heads for left ventricular support and mitral valve replacement using a 27 mm bioprosthesis/ Patch repair of annulus using bovine pericardium post extensive ultrasonic debridement of mitral annular calcification (using
CUSA)/Exploration of aorta to evaluate TAVR valve, debridement of fibrinous veil across the left main cells described on left heart cath, by Dr. Guzman, 07/13/25, pod#8
-Severe mitral valve stenosis, secondary to dense mitral annular calcification and calcific disease of the leaflets
-Previous aortic valve stenosis status post TAVR, 03/16/2023 @ [place]
-LVEF 70-75%
-Severe pulmonary hypertension
-Hyperlipidemia
-Hypertension
-Type 2 diabetes (A1c 6.9)
-ERICKA (noncompliant with CPAP @ home)
-Class 2 obesity (BMI 36.4)
-Thalassemia minor
-Bradycardia
-S/P L TKA, 10/27/23
-S/p Uterine artery embolization
-S/p Vaginal septum removal
-S/P Bunionectomy
-Acute intraop/postop blood loss/Anemia (stable without transfusion)
-Acute postop atelectasis
-Acute postop hypovolemia with subsequent hypervolemia
-Acute postop bradycardia in 40's requiring A/V pacing in 70's
-Acute postop a-fib with RVR 130-140's
-Acute postop hyponatremia, 132
-Acute postop ventricular bigeminy in the 50's
-Echo 07/18/25:
1. Hyperdynamic LV systolic function with small ventricular cavity. LVEF 70-75%. Moderate LVH.
2. Normal right ventricular size and systolic function.
3. The TAVR valve is well-seated with a mean gradient of 10 mmHg and no aortic regurgitation.
4. The mitral valve replacement is well-seated. The mean gradient is 2 mmHg. No mitral regurgitation is identified.
5. No pericardial effusion.
6. No significant change since echocardiogram dated 07/16/2025.
Discussed patient care with: Nursing and Care Team
Subjective
Procedure
S/P Standard sternotomy/Complete resection of mitral valve leaflets as well as subvalvular apparatus down to level the papillary muscle heads via transseptal approach/ Placement of 2 x CV 3 Grady-Som neochords to both the anterior and posterior
medial papillary muscle heads for left ventricular support and mitral valve replacement using a 27 mm bioprosthesis/ Patch repair of annulus using bovine pericardium post extensive ultrasonic debridement of mitral annular calcification (using
CUSA)/Exploration of aorta to evaluate TAVR valve, debridement of fibrinous veil across the left main cells described on left heart cath, by Dr. Guzman, 07/13/25,
-
Date of Service: July 21, 2025
Objective Data
-
Lab Results
07/20/25 03:12
07/21/25 05:40
PT 17.9 Sec (11.4-14.6) H 07/13/25 12:19
INR 1.45 07/13/25 12:19
APTT 32.6 Sec (23.4-35.0) 07/13/25 12:19
Vital Signs
Vital Signs
Temp Pulse Resp BP Pulse Ox
98.9 F 68 18 117/76 96
07/21/25 06:58 07/21/25 07:30 07/21/25 06:58 07/21/25 06:57 07/21/25 06:58
CT Intake/Output/Weight
07/20/25 07/21/25 07/21/25
18:59 06:59 18:59
Intake Total 1209 / 1209 240 / 240
Output Total 300 / 700 400 / 700
Balance 909 / 509 -400 / 509 240 / 240
SaO2: 96
Physical Exam
-
General: AOx3
Cardiovascular: Irregular rate (nsr with frequent PVCs) & rhythm and No Murmurs
Respiratory: Decreased Breath Sounds
Sternum: Stable
Incision: Clean, Dry and Intact
Extremities: No Edema
Data Reviewed
-
Lab Results: Results Reviewed
Medications: Active Meds Reviewed
Chest X-Ray: Report Reviewed and Image Reviewed
ECG: Report Reviewed and Image Reviewed
[2025-07-21] MEDS: NSS IV (08:30)
[2025-07-21] MEDS: LIDOCAINE 4% PATCH TOPICAL (08:30)
--- NOTE | 2025-07-21 08:33 | PTCARENOTE ---
Assumed care at 0700. Patient in chair, states feeling better today. Incisions healing Bigeminy on tele HR 67, dependent edema right greater than left. Pacing wires insulated. ABD pad covering old chest tube sites, scabbed no drainage. Miralax
given, passing gas, no BM 1 week, large obese abdomen, non-tender. Walking to the bathroom using rolling walker, call [facility] in reach
[2025-07-21] MEDS: KCL 20 MEQ PO (09:40)
[2025-07-21] MEDS: LOTRIMIN 1% CREAM TOPICAL (09:40)
[2025-07-21] MEDS: LASIX 40 MG PO (09:40)
[2025-07-21 09:51] VITALS: BP 117/71
[2025-07-21 10:18] VITALS: BP 117/71; PULSE 65; O2SAT 94
[2025-07-21 11:50] LABS: Glucose - Point of Care 128 mg/dl (70-99)
--- NOTE | 2025-07-21 11:50 | W.DCSUMMARY ---
Discharge Summary
Discharge Data
Date of Admission: 07/13/25
Date of Discharge: 07/21/25
-
Pending Results: No
Hospital Course
Primary care physician: Eliel Nixon MD
Outpatient director of premium seat sales: Dr. Newton Zhong
Inpatient consultants: [facility], Diabetic Nurse Practitioner, Farm Crew Leader/Pulmonary
Procedures:
1. Mitral Valve Replacement (#27 via sternotomy with extensive debridement of MAC & bovine pericardial path of mitral annulus by Dr. Ivan Guzman on 07/13/25.
Primary Diagnosis:
1. Nonrheumatic Mitral Stenosis
Secondary Diagnoses:
1. HOCM
2. Aortic Stenosis s/p TAVR (2022, [facility] 26 mm at [place])
3. HLD
4. HTN
5. Type 2 Diabetes Mellitus
6. ERICKA not on CPAP
7. OA s/p LTKA
8. Thalassemia minor
9. CAD (80% D1)
10. pAF (Xarelto)
HPI: Ms. Chanda Hudson is a 75-year-old female with a past medical history significant for aortic stenosis status post TAVR in 2022, HOCM, and CAD (80% D1) who presented for outpatient consultation on intervention for her mitral valve. She was
referred for consultation after an outpatient TTE which reported EF over 70%, moderate to severe septal hypertrophy with mitral valve calcification with a mean gradient of 14 mmHg. At that time, she further reported dyspnea on exertion, which had
progressed. She was recommended for MVR with Dr. Guzman. Please see pre-operative H&P for complete presentation prior to surgery.
Hospital course: On 07/13/25 patient was electively admitted for MVR with Dr. Guzman. Patient underwent a sternotomy with complete resection of mitral valve leaflets as well as subvalvular apparatus down to the level of the papillary muscle heads via
transseptal approach with placement of 2 xCV 3 [place]-Som neochords to both anterior and posterior medial papillary muscle heads of L ventricular support and mitral valve replacement using a 27 mm Bioprosthesis, patch repair of annulus using bovine
pericardium post extensive ultrasonic debridement of MAC, exploration of aorta to evaluate TAVR valve, and debridement of fibrinous veil across left main by Dr. Ivan Guzman. Please refer to surgeons postoperative note for complete details
regarding surgery. Intraoperative SAVAGE reported .
In progressive fashion, inotropic support, vasopressor support, central lines, chest tubes and urinary catheter were discontinued. An insulin drip was initiated following surgery and was transitioned to patient's preoperative regiment of Glipizide
extended release 10 mg daily, with the addition of Farxiga 10 mg daily, and short-term use of Lantus with Novolog. Lantus and Novolog were discontinued upon discharge and patient able to restart Mounjaro.
Postoperative course was complicated by postoperative cardiac 40s requiring a/V pacing with addition of A-fib with RVR. Patient was evaluated by EP in which the need for a permanent pacemaker was held due to asymptomatic bradycardia with PVCs and
heart rate trending in 50s to 60s. Beta-janeth was held during postoperative course and not restarted. Patient was placed on amiodarone and continued on amiodarone 200 mg twice daily upon discharge. Eliquis 5 mg twice daily was added and
continued on discharge.
Postoperative course was further complicated by hypovolemia with subsequent hypovolemia. Patient was aggressively diuresed with IV diuretic therapy. Patient's weight upon discharge was 104 kg with preoperative weight of 105.2 kg. She was
discharged home with Lasix 40 mg p.o. daily and potassium chloride 20 mEq p.o. daily with instruction to monitor her weight and parameters to notify provider.
On postoperative day 5, 07/18/2025, TTE reported hyperdynamic LV systolic function with small ventricular cavity, LVEF 70 to 75%, moderate LVH, normal RV size and systolic function, well-seated TAVR valve with MG of 10 and no AI, well-seated MVR
with MG of 2, no MR, and no pericardial effusion.
On postoperative day 7, patient was deemed suitable for discharge. She was ambulating independently in hallway. She had a large bowel movement with a small amount of blood due to her hemorrhoids. She did not endure further bleeding following her
bowel movement. Her epicardial pacing wires were cut. She showered without any difficulty. She will see Dr. Guzman as an outpatient within 4 weeks from surgery. She is scheduled to see her primary director of premium seat sales within 4 weeks. She will be seen by
the transitional care nursing team within 2 to 3 days from discharge.
Home medication changes:
- See list provided below.
Discharge Plan
-
Patient Disposition: Home (Routine Discharge)
Discharge Diagnosis/Procedures: Mitral Valve Stenosis s/p Mitral Valve Replacement with Dr. Ivan Guzman on 07/13/25
Condition: Good
Diet: Low Cholesterol and Low Sodium
Activity: No strenuous activity
Additional Activity: No heavy lifting, pushing, or pulling anything greather than 10 lbs for 1-month.
Driving Restrictions: Not until seen by your Dr
Bathing Restrictions: OK to Shower
Other Services: Cardiac Rehab
Wound Care: Shower daily with soap and water.
No lotions, creams, or powders to procedural sites.
Specialty Instructions: Weigh Daily- Call MD for wt gain/loss 3 lbs overnight/5 lbs in 1 week
Activity Restrictions/Additional Instructions:
ACTIVITY:
-No strenuous activity: no heavy lifting, pushing, pulling anything over 15 pounds for one month
-continue to use stairs as tolerated
DRIVING RESTRICTIONS:
-No driving for one month or until approved by your surgeon
WOUND CARE:
-Shower daily. Use soap & water.
-No lotions, creams or powders on incision area.
DIET:
-continue a low fat/low cholesterol diet.
-IF you are diabetic, continue carb controlled diet.
CARDIAC REHAB:
-Please make appointment to start in 5-6 weeks with your local hospital program. (See Cardiac Rehabilitation Discharge Booklet).
SPECIALTY INSTRUCTIONS:
-Weigh yourself daily. Call your physician for any weight gain/loss of 3 lbs overnight or 5 lbs in one week.
-REPORT any clicking noise or uneven appearance of your sternum to your surgeon immediately.
-If you smoke, you are instructed to quit. The [place] smoking hotline phone number is [phone]
Referrals:
CT Transitional Care Nurse [Outside] - in one to two days
Referral Note:
The Cardiothoracic Transitional Care Nurse will call you to set up a visit in 1-2 days.
[facility] [Outside]
Referral Note: Cardiac Rehab Orientation appointment and� First Exercise appointment is on 08/15/2025 at 10:00.
The Cardiac Rehab gym is located on the first floor of the [facility].
Tonya Vazquez CRNP [Specified Professional Personl, Cardiology] - 08/24/25 10:40 am
NONE,* [Family Provider, Internal Medicine]
Santos Sandoval MD [Active, Pulmonary Medicine] - in one to two months
Referral Note: Abnormal CT chest-pulmonary nodule
Obstructive sleep apnea
Ivan Guzman MD [Active, Cardiac Surgery] - 08/13/25 2:30 pm
Prescriptions:
New
amiodarone 200 mg tablet
200 mg PO BID Qty: 60 2RF
furosemide 40 mg Tablet
40 mg PO DAILY Qty: 5 0RF
potassium chloride [Klor-Con M20] 20 mEq Tablet,Er Particles/Crystals
20 meq PO DAILY Qty: 5 0RF
Eliquis 5 mg Tablet
5 mg PO BID 30 Days Qty: 60 2RF
dapagliflozin propanediol 10 mg Tablet
10 mg PO DAILY Qty: 30 1RF
Continued
glipizide 5 MG tablet extended release 24hr
10 mg PO DAILY
Patient Comments:
unsure of mg
ketoconazole 2 % Cream
1 applic TOPICAL PRN PRN (Reason: Foot Rash)
sennosides [Senna Lax] 8.6 mg tablet
17.2 mg PO BID PRN (Reason: constipation)
Mounjaro 15 mg/0.5 mL Pen Injector
15 mg SC WE
atorvastatin 20 mg Tablet
20 mg PO HS Qty: 0 0RF
aspirin 81 mg Tablet,Delayed Release (Dr/Ec)
81 mg PO DAILY Qty: 0 0RF
Discontinued
acetaminophen [Tylenol Extra Strength] 500 mg tablet
1,000 mg PO Q6H PRN (Reason: pain)
Rx Instructions:
DO NOT exceed >4000 mg daily.
metoprolol succinate 100 mg Tablet Extended Release 24 Hr
100 mg PO BID
losartan 25 MG tablet
25 mg PO DAILY
Rx Instructions:
HOLD IF systolic blood pressure <130 while on Tramadol.
Discharge Orders:
Discharge Patient (As Directed); Ordered 07/21/25
Ordered By: Radha Murillo
Discharge Date and Time
Print Language: PASHTO
[2025-07-21] MEDS: DULCOLAX 10 MG RECTAL (11:52)
[2025-07-21 12:00] VITALS: BP 145/66
--- NOTE | 2025-07-21 15:32 | PTCARENOTE ---
Patient discharged to home. IV and telemetry removed. Instructions reviewed with patient and spouse, they verbalized understanding. Escorted to main lobby in a wheelchair
== END 2025-07-21 15:34 | disposition home or self-care (01) | DRG 219 ==
LOC: IVU 04:55
PROVIDERS: Anesthesiology; Clinical Nurse Specialist Acute Care; Nurse Practitioner; Physician Assistant Medical; ADMITTING PHYSICIAN Thoracic Surgery (Cardiothoracic Vascular Surgery); CONSULT PHYSICIAN Internal Medicine Critical Care Medicine
PROC: 02RF38Z Replacement of Aortic Valve with Zooplastic Tissue, Percutaneous Approach (ICD-10-PCS; 2025-07-13)
PROC: B24BZZ4 Ultrasonography of Heart with Aorta, Transesophageal (ICD-10-PCS; 2025-07-13)
PROC: 02RG08Z Replacement of Mitral Valve with Zooplastic Tissue, Open Approach (ICD-10-PCS; 2025-07-13)
PROC: 02L70CK Occlusion of Left Atrial Appendage with Extraluminal Device, Open Approach (ICD-10-PCS; 2025-07-13)
DX: I34.2 Nonrheumatic mitral (valve) stenosis (principal); J95.2 Acute pulmonary insufficiency following nonthoracic surgery; D62 Acute posthemorrhagic anemia; I42.1 Obstructive hypertrophic cardiomyopathy; E87.1 Hypo-osmolality and hyponatremia; J90 Pleural effusion, not elsewhere classified; J98.11 Atelectasis; I25.10 Atherosclerotic heart disease of native coronary artery without angina pectoris; E66.01 Morbid (severe) obesity due to excess calories; E78.5 Hyperlipidemia, unspecified; I10 Essential (primary) hypertension; E11.65 Type 2 diabetes mellitus with hyperglycemia; G47.33 Obstructive sleep apnea (adult) (pediatric); I27.20 Pulmonary hypertension, unspecified; Z68.36 Body mass index [BMI] 36.0-36.9, adult; D56.3 Thalassemia minor; E86.1 Hypovolemia; I48.0 Paroxysmal atrial fibrillation; Z79.01 Long term (current) use of anticoagulants; Z79.82 Long term (current) use of aspirin; Z79.899 Other long term (current) drug therapy; Z95.2 Presence of prosthetic heart valve
CPT/HCPCS: 36415; 71045; 71046; 80048; 80053; 81003; 81015; 82248; 82330; 82565; 82805; 82810; 82947; 82962; 83036; 83735; 84132; 84302; 84520; 85014; 85018; 85025; 85027; 85049; 85610; 85730; 86803; 86850; 86900; 86901; 86920; 87070; 87077; 87086; 87186; 88305; 93005; 93308; 93312; 93320; 93321; 93325; 93880; 94002; 97116; 97163; 97167; 97530; 97535; C1768; J0282; J1250; J1939; J2916; P9047

== ENCOUNTER 2025-08-31 15:16 | Outpatient (RCR) | payer MEDICARE, SELFPAY ==
[2025-08-15 11:56] LABS: Glucose - Point of Care 81 mg/dl (70-99)
[2025-08-15 12:18] LABS: Glucose - Point of Care 143 mg/dl (70-99)
[2025-08-15 12:49] LABS: Glucose - Point of Care 148 mg/dl (70-99)
[2025-08-17 14:47] LABS: Glucose - Point of Care 93 mg/dl (70-99)
[2025-08-17 15:34] LABS: Glucose - Point of Care 98 mg/dl (70-99)
[2025-08-20 13:56] LABS: Glucose - Point of Care 118 mg/dl (70-99)
[2025-08-20 15:17] LABS: Glucose - Point of Care 114 mg/dl (70-99)
[2025-08-22 14:59] LABS: Glucose - Point of Care 122 mg/dl (70-99)
[2025-08-22 15:46] LABS: Glucose - Point of Care 86 mg/dl (70-99)
[2025-08-24 15:12] LABS: Glucose - Point of Care 99 mg/dl (70-99)
[2025-08-24 15:47] LABS: Glucose - Point of Care 88 mg/dl (70-99)
[2025-08-27 14:33] LABS: Glucose - Point of Care 118 mg/dl (70-99)
[2025-08-31 15:09] LABS: Glucose - Point of Care 97 mg/dl (70-99)
[2025-08-31 15:44] LABS: Glucose - Point of Care 100 mg/dl (70-99)
== END 2025-08-31 23:59 | disposition home or self-care (01) ==
LOC: CRHB 15:16
PROVIDERS: ATTENDING PHYSICIAN Student in an Organized Health Care Education/Training Program
DX: Z95.4 Presence of other heart-valve replacement (principal)
CPT/HCPCS: 82962; G0422; G0423